=== PATIENT | male | born 1965 | race Caucasian/White ===

== ENCOUNTER 2016-08-31 18:13 | Inpatient (IN) | payer SELFPAY ==
[~2016-08-31] VITALS: Ht 182.9 cm; Wt 80.0 kg
[2016-08-31 18:22] VITALS: BP 150/83; PULSE 117; RESP 16; TEMP 98.5; O2SAT 96
--- NOTE | 2016-08-31 19:09 | PD ---
HPI Chief Complaint: Chest Pain Time Seen by Provider: 19:02 Travel History International Travel<30 days: No Contact w/Intl Traveler<30days: No Traveled to known affect area: No History of Present Illness HPI The patient is a 51 year old male who presents to the [facility] emergency department with a history of chest pain that began 4 hours ago upon awakening. The patient shows the location of the pain to be in the midepigastric area and left upper quadrant of the abdomen. The patient reports pain is sharp in character and constant. He reports it is gradually getting worse with time. He reports that the pain feels similar to when he has had pancreatitis in the past. The patient reports that he was just let out of senior care earlier today after being in senior care for the last 7 months. The patient reports that he's had nausea with the pain, vomiting 4. He denies having any diarrhea. His last bowel movement was 2 days ago. The patient denies having any associated shortness of breath. The patient reports that prior to going to senior care he was drinking 4-6 Four [place] per day. Since being let out of senior care today, he has had 2 [place]. The patient denies any recent fevers, cough, congestion, neck pain, urinary symptoms, or new neurologic symptoms. 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 Depression: Yes Cerebrovascular Accident: Yes (TIA) Hypertension: Yes Pancreatitis: Yes Past Surgical History Narrative Surgical The patient's past surgical history is significant for lumbar discectomy, right leg tumor removal just below the knee-reportedly benign. Surgical History: No Previous Surgery Social History Alcohol Use: Yes (4-6 4 locos per day) Tobacco Use: Yes (1 ppd) Substance Use: No Allergies-Medications (Allergen,Severity, Reaction): Coded Allergies: No Known Allergies (Unverified , 08/31/16) Reported Meds & Prescriptions Reported Meds & Active Scripts Active No Active Prescriptions or Reported Medications Narrative Medication None currently. Over the last 7 months in senior care he had been on Prilosec, ibuprofen of unknown dose 3 times a day, and lithium. Review of Systems Except as stated in HPI: all other systems reviewed are Neg General / Constitutional: No: Fever Eyes: No: Visual changes HENT: No: Headaches Cardiovascular: Positive: Chest Pain or Discomfort Respiratory: No: Shortness of Breath Gastrointestinal: Positive: Nausea, Vomiting, Abdominal Pain, Indigestion, No : Hematemesis, Changes in Bowel Habits, Loss of Appetite Genitourinary: No: Dysuria Musculoskeletal: No: Pain Skin: No Rash Neurologic: No: Weakness, Focal Abnormalities, Change in Mentation, Slurred Speech, Sensory Disturbance Psychiatric: No: Depression Endocrine: No: Polydipsia Hematologic/Lymphatic: No: Easy Bruising Physical Exam Narrative General: The patient is a well-developed well-nourished male in no acute distress. Head and Neck exam: Head is normocephalic atraumatic. Eyes: EOMI, pupils are equal round and reactive to light. Nose: Midline septum with pink mucous membranes Mouth: Dentition unremarkable. Moist mucus membranes. Posterior oropharynx is not erythematous. No tonsillar hypertrophy. Uvula midline. Airway patent. Neck: No palpable lymphadenopathy. No nuchal rigidity. No thyromegaly. Cardiovascular: Sinus tachycardia in the low 100 without murmurs, gallops, or rubs. No pulse deficit to the extremities on simultaneous auscultation and palpation of his radial artery. Lungs: Clear to auscultation bilaterally. No wheezes, rhonchi, or rales. Abdomen: Soft, with tenderness on palpation of the midepigastric area and left upper quadrant of the abdomen, no other tenderness on palpation of the other quadrants. No guarding, rebound, or rigidity. Normal bowel sounds are audible. No tenderness on palpation of McBurney's point. Negative [place] sign. Extremities: No clubbing, cyanosis, or edema. 2+ pulses in all 4 extremities. No calf tenderness on palpation. Back: No spinous process tenderness to palpation. No costovertebral angle tenderness to palpation. Neurologic Exam: Grossly nonfocal. Skin Exam: No rash noted. Intact skin that is warm and dry. Data Data Last Documented VS Vital Signs Date Time Temp Pulse Resp B/P Pulse Ox O2 Delivery O2 Flow Rate FiO2 08/31/16 20:39 100 18 98 Nasal Cannula 2 08/31/16 19:49 156/91 08/31/16 18:22 98.5 Orders Electrocardiogram (6/11/17 19:02) B-Type Natriuretic Peptide (08/31/16 19:02) Ckmb (Isoenzyme) Profile (08/31/16 19:02) Complete Blood Count With Diff (08/31/16 19:02) Comprehensive Metabolic Panel (08/31/16 19:02) Magnesium (Mg) (08/31/16 19:02) Prothrombin Time / Inr (Pt) (08/31/16 19:) Act Partial Throm Time (Ptt) (08/31/16 19:02) Troponin I (08/31/16 19:) Lipase (08/31/16 19:02) Chest, Single Ap (08/31/16:) Ecg Monitoring (08/31/16:) Bilateral Bp Monitoring (08/31/16:) Iv Access Insert/Monitor (08/31/16:) Oximetry (08/31/16:) Oxygen Administration (08/31/16:) Aspirin Chew (Aspirin Chew) (08/31/16 19:15) Nitroglycerin 2% Oint (Nitroglycerin 2% (08/31/16 19:15) Sodium Chloride 0.9% Flush (Ns Flush) (08/31/16 19:15) Nitroglycerin Sl (Nitrostat Sl) (08/31/16 19:15) Sodium Chlorid 0.9% 500 Ml Inj (Ns 500 M (08/31/16 19:15) Sodium Chlor 0.9% 1000 Ml Inj (Ns 1000 M (08/31/16 19:15) Ondansetron Inj (Zofran Inj) (08/31/16 19:15) Pantoprazole Inj (Protonix Inj) (08/31/16 19:15) Morphine Inj (Morphine Inj) (08/31/16 19:15) Prochlorperazine Inj (Compazine Inj) (08/31/16 20:00) CKMB (08/31/16 19:21) CKMB% (08/31/16 19:21) Admit Order (Ed Use Only) (08/31/16 21:11) Ct Abd/Pel W Iv Contrast(Rout) (09/01/16 20:48) Labs Laboratory Tests Test 08/31/16 19:21 White Blood Count 14.4 TH/MM3 Red Blood Count 5.24 MIL/MM3 Hemoglobin 15.4 GM/DL Hematocrit 44.2 % Mean Corpuscular Volume 84.3 FL Mean Corpuscular Hemoglobin 29.3 PG Mean Corpuscular Hemoglobin 34.8 % Concent Red Cell Distribution Width 13.2 % Platelet Count 231 TH/MM3 Mean Platelet Volume 9.0 FL Neutrophils (%) (Auto) 86.4 % Lymphocytes (%) (Auto) 9.4 % Monocytes (%) (Auto) 3.7 % Eosinophils (%) (Auto) 0.0 % Basophils (%) (Auto) 0.5 % Neutrophils # (Auto) 12.4 TH/MM3 Lymphocytes # (Auto) 1.3 TH/MM3 Monocytes # (Auto) 0.5 TH/MM3 Eosinophils # (Auto) 0.0 TH/MM3 Basophils # (Auto) 0.1 TH/MM3 CBC Comment DIFF FINAL Differential Comment Prothrombin Time 12.4 SEC Prothromb Time International 1.1 RATIO Ratio Activated Partial 26.8 SEC Thromboplast Time Sodium Level 137 MEQ/L Potassium Level 3.4 MEQ/L Chloride Level 96 MEQ/L Carbon Dioxide Level 25.0 MEQ/L Anion Gap 16 MEQ/L Blood Urea Nitrogen 6 MG/DL Creatinine 0.92 MG/DL Estimat Glomerular Filtration 86 ML/MIN Rate Random Glucose 151 MG/DL Calcium Level 8.7 MG/DL Magnesium Level 2.0 MG/DL Total Bilirubin 0.6 MG/DL Aspartate Amino Transf 38 U/L (AST/SGOT) Alanine Aminotransferase 50 U/L (ALT/SGPT) Alkaline Phosphatase 89 U/L Total Creatine Kinase 142 U/L Creatine Kinase MB 1.2 NG/ML Troponin I LESS THAN 0.02 NG/ML B-Type Natriuretic Peptide 6 PG/ML Total Protein 8.2 GM/DL Albumin 3.6 GM/DL Lipase 70 U/L [facility] Medical Decision Making Medical Screen Exam Complete: Yes Emergency Medical Condition: Yes Medical Record Reviewed: Yes Interpretation(s) Last Impressions Chest X-Ray 08/31/161901 Signed Impressions: Service Date/Time: Wednesday, August 31, 2016 19:37 - CONCLUSION: The lungs are clear. Stan Márquez MD Differential Diagnosis Acute pancreatitis, versus acute coronary syndrome, versus acid reflux, versus alcohol related gastritis, versus Ashley-Chowdhury tear, versus hemorrhagic esophagitis Narrative Course During the course of the patients emergency department visit, the patients history, examination, and differential diagnosis were reviewed with the patient. The patient had IV access obtained and blood work sent for analysis. The patient was on a cafeteria monitor with oximetry and blood pressure monitoring. The patient had an EKG done on arrival. The patient's EKG shows a sinus tachycardia with a heart rate of 120, left anterior fascicular block, nonspecific T-wave abnormalities, no acute ST segment elevation. QRS duration is 100 ms, QTC 398 ms. The patient was initially provided the patient will be started on 1.5 L of normal saline IV fluids, Zofran 4 mg IV, morphine 2 mg IV, nitroglycerin sublingual 1, nitroglycerin 1 inch the chest wall. The patient was given aspirin 162 mg by mouth 1. The patient was given Protonix 40 mg IV. The patients laboratory studies were reviewed and remarkable for a white count of 14.4, hemoglobin 15.4, platelets 231 with 86.4 neutrophils, CMP is remarkable for potassium 3.4, chloride 96, BUNs 6, anion gap 16, glucose 151, AST 38, CPK 142, troponin I less than 0.02, BNP is 6, lipase 70, PT 12.4, INR 1.1, PTT 26.8 Radiology studies were reviewed and remarkable for a chest x-ray that shows no acute abnormality. The patient had persistent nausea and vomiting. The patient was given Compazine 5 mg IV. The patient will be admitted to the hospital for intractable vomiting, chest pain with a rule out serial cardiac enzyme protocol. The patients results were discussed with the patient, including the plan of care. I explained that further testing and/ or monitoring is indicated based on the patients history, examination, and/ or laboratory findings. Therefore, I recommended admission for additional evaluation. The patient expressed understanding and was agreeable with this plan. The patient was admitted to the hospital in stable condition and [facility] Physician Communication Physician Communication The patient's case was discussed with Dr. Erazo who did agree to admit the patient for further evaluation and treatment at this time. Diagnosis Primary Impression: Abdominal pain Qualified Code: R10.13 - Epigastric pain Additional Impression: Chest pain Qualified Code: R07.9 - Chest pain, unspecified type Admitting Information Admitting Physician Requests: Admit Scripts No Active Prescriptions or Reported Meds Kirstie Tang MD Aug 31, 2016 19:09
[2016-08-31] MEDS ORDERED: NITROGLYCERIN 2% OINT 1 GM PACKET TOP ONE (19:15)
[2016-08-31] MEDS ORDERED: ONDANSETRON HCL 4 MG/2 ML VIAL IV ONE (19:15)
[2016-08-31] MEDS ORDERED: SODIUM CHLOR 0.9% 1000 ML INJ 1,000 ML IV ONE (19:15)
[2016-08-31] MEDS ORDERED: PANTOPRAZOLE SODIUM 40 MG VIAL IV PUSH ONE (19:15)
[2016-08-31] MEDS ORDERED: MORPHINE SULFATE 4 MG/ML INJ IV PUSH ONE (19:15)
[2016-08-31] MEDS ORDERED: ASPIRIN 81 MG CHEW TAB PO ONE (19:15)
[2016-08-31] MEDS ORDERED: SODIUM CHLORID 0.9% 500 ML INJ 500 ML IV ONE (19:15)
[2016-08-31] MEDS ORDERED: SODIUM CHLORIDE 0.9% FLUSH 10 ML FLUSH IVF PRN (19:15)
[2016-08-31 19:20] VITALS: BP 150/83; PULSE 117; RESP 18; O2SAT 95
[2016-08-31] MEDS: NITROGLYCERIN 0.4 MG SL 25 TABS/BTL SL SCH ×2 (19:31→19:48)
[2016-08-31 19:48] VITALS: BP 133/80
[2016-08-31 19:49] VITALS: BP 156/91
--- NOTE | 2016-08-31 19:52 | RADRPT ---
EXAM DATE/TIME: 08/31/2016 19:37 [facility] COMPARISON: No previous studies available for comparison. INDICATIONS : Chest pain. MEDICAL HISTORY : None. SURGICAL HISTORY : None. ENCOUNTER: Initial ACUITY: 1 day PAIN SCORE: 7/10 LOCATION: Bilateral chest FINDINGS: A single view of the chest demonstrates the lungs to be symmetrically aerated without evidence of mas s, infiltrate or effusion. The cardiomediastinal contours are unremarkable. Osseous structures are intact. CONCLUSION: The lungs are clear. Stan Márquez MD on August 31, 2016 at 19:50 Board Certified Radiologist. This report was verified electronically.
[2016-08-31] MEDS ORDERED: PROCHLORPERAZINE INJ 10 MG/2 ML VIAL IV PUSH ONE (20:00)
[2016-08-31 20:04] LABS: AUTOMATED NEUTROPHIL # 12.4 TH/MM3 (1.8-7.7); BASOPHIL # 0.1 TH/MM3 (0-0.2); BASOPHIL % 0.5 % (0.0-2.0); HEMATOCRIT 44.2 % (39.0-51.0); HEMO FLAGS DIFF FINAL; LYMPH % 9.4 % (9.0-44.0); LYMPHOCYTE # 1.3 TH/MM3 (1.0-4.8); MEAN CELL VOLUME 84.3 FL (80.0-100.0); MEAN CORPUSCULAR HEMOGLOBIN 29.3 PG (27.0-34.0); MEAN CORPUSCULAR HGB CONC 34.8 % (32.0-36.0); MONO % 3.7 % (0.0-8.0); NEUT % 86.4 % (16.0-70.0); PLATELET COUNT 231 TH/MM3 (150-450); RED BLOOD COUNT 5.24 MIL/MM3 (4.50-5.90); RED CELL DISTRIBUTION WIDTH 13.2 % (11.6-17.2); WHITE BLOOD COUNT 14.4 TH/MM3 (4.0-11.0)
[2016-08-31 20:13] LABS: APTT (PATIENT) 26.8 SEC (24.3-30.1); INTERNATIONAL NORMALIZED RATIO 1.1 RATIO; PROTHROMBIN TIME - PATIENT 12.4 SEC (9.8-11.6)
[2016-08-31 20:32] LABS: ALT (GPT) 50 U/L (12-78)
[2016-08-31 20:38] LABS: ALKALINE PHOSPHATASE 89 U/L (45-117); ANION GAP 16 MEQ/L (5-15); AST (GOT) 38 U/L (15-37); BLOOD UREA NITROGEN 6 MG/DL (7-18); CHLORIDE 96 MEQ/L (98-107); CREATINE KINASE 142 U/L (39-308); GLOMERULAR FILTRATION RATE 86 ML/MIN (>89); POTASSIUM 3.4 MEQ/L (3.5-5.1); SODIUM (NA) 137 MEQ/L (136-145); TOTAL BILIRUBIN ADULT 0.6 MG/DL (0.2-1.0)
[2016-08-31 20:39] VITALS: PULSE 100; RESP 18; O2SAT 98
[2016-08-31 20:50] LABS: CKMB 1.2 NG/ML (0.5-3.6)
[2016-08-31] MEDS ORDERED: PROCHLORPERAZINE 25 MG SUPP RECTAL PRN (21:30)
[2016-08-31] MEDS ORDERED: SODIUM CHLORIDE 0.9% FLUSH 10 ML FLUSH IV FLUSH PRN ×2 (21:30)
[2016-08-31] MEDS ORDERED: SENNOSIDES 8.6 MG TAB PO PRN (21:30)
[2016-08-31] MEDS ORDERED: MAGNESIUM HYDROXIDE SUSP 30 ML CUP PO PRN (21:30)
[2016-08-31] MEDS ORDERED: METOCLOPRAMIDE HCL 10 MG/2 ML VIAL IV PUSH PRN (21:30)
[2016-08-31] MEDS ORDERED: BISACODYL 10 MG SUPP RECTAL PRN (21:30)
[2016-08-31] MEDS ORDERED: ONDANSETRON HCL 4 MG/2 ML VIAL IVP PRN (21:30)
[2016-08-31] MEDS ORDERED: ACETAMINOPHEN 325 MG TAB PO PRN (21:30)
[2016-08-31] MEDS ORDERED: LACTULOSE SYRUP 20 GM/30 ML CUP PO PRN (21:30)
--- NOTE | 2016-08-31 21:50 | HHI.HP ---
HPI Service [facility] Primary Care Physician No Primary Care Physician Admission Diagnosis cp ro mi, intractable vomiting Diagnoses: Chief Complaint: Chest pain, intractable vomiting Travel History International Travel<30 Days: No Contact w/Intl Traveler <30 Da: No Traveled to Known Affected Are: No Sepsis Criteria SIRS Criteria (2 or more): Heart rate over 90, WBC > 12890, < 4000 or > 10% bands Sepsis Criteria (SIRS+source): Infect source susp/known History of Present Illness Written by Alessandra Godoy, acting as scribe for Dr. Erazo on 08/31/16 at 21 :37. This note was transcribed by [email or web address] HUSAIN. I, Dr. Tiff Erazo personally performed the history, physical exam, and medical decision making; and confirmed the accuracy of the information in the transcribed note. Authenticated by Dr. Tiff Erazo on 08/31/16 at 21:37. The patient is a 51 year old male with a past medical history which includes HTN , cerebrovascular accident with mild residual weakness of the right side, leg tumor removed, chronic low back pain status post low back surgery with a right foot drop reportedly related to the surgery, pancreatitis, acid reflux, and depression. Patient presents to the [facility] emergency department for with complaints of chest pain. Patient report he was awoke from sleep with chest pain. When patient asked to point to the pain he indicates midepigastric area. Describes pain as severe contant sharp stabbing sensation. Patient reports pain is better after nitroglycerine given on ER. Pain is associated with brown colored vomiting. Patient reports, "I ain't got nothing left in my gut." Endorses Chills and cough productive of white colored phlegm as well. Patient reports he drank two 4 [place] today. Patient has not been drinking for the last 7 months as he was in [place]. Patient has been taking ibuprofen 3-4 times a day for chronic back pain while he was incarcerated. Patient denies diarrhea constipation or shortness of breath. Review of Systems Except as stated in HPI: all other systems reviewed are Neg Past Family Social History Past Medical History HTN, cerebrovascular accident with mild residual weakness of the right side, leg tumor removed, chronic low back pain status post low back surgery with a right foot drop reportedly related to the surgery, pancreatitis, acid reflux, and depression. Past Surgical History lumbar discectomy, right leg tumor removal just below the knee-reportedly benign , repair of bilateral forearms after stabbings Reported Medications Ibuprofen unknown dose by mouth 3 times a day Prilosec unknown dose by mouth daily Allergies: Coded Allergies: No Known Allergies (Unverified , 08/31/16) Active Ordered Medications Current Medications Medications (Trade) Dose Ordered Sig/Liborio Route Start Time Stop Time Status Last Admin Sodium Chloride 2 ml 2 ml UNSCH PRN IVF 08/31/16 19:15 (NS 1000 ml Inj) 1,000 ml @ 100 mls/hr Q10H IV 08/31/16 21:28 UNV (NS Flush) 2 ml UNSCH PRN IV FLUSH 08/31/16 21:30 UNV (NS Flush) 2 ml BID IV FLUSH 09/01/16 09:00 UNV (Tylenol) 650 mg Q4H PRN PO 08/31/16 21:30 UNV (Zofran Inj) 4 mg Q6H PRN IVP 08/31/16 21:30 UNV (Reglan Inj) 5 mg Q6H PRN IV PUSH 08/31/16 21:30 UNV (Compazine Supp) 25 mg Q12H PRN MI 08/31/16 21:30 UNV (Lovenox Inj) 40 mg Q24H SQ 08/31/16 21:30 UNV (Lexii-Colace) 1 tab BID PO 09/01/16 09:00 UNV (Milk Of Magnesia Liq) 30 ml Q12H PRN PO 08/31/16 21:30 UNV (Senokot) 17.2 mg Q12H PRN PO 08/31/16 21:30 UNV (Dulcolax Supp) 10 mg DAILY PRN RECTAL 08/31/16 21:30 UNV (Lactulose Liq) 30 ml DAILY PRN PO 08/31/16 21:30 UNV (NS Flush) 2 ml UNSCH PRN IV FLUSH 08/31/16 21:30 UNV (NS Flush) 2 ml BID IV FLUSH 09/01/16 09:00 UNV Family History HTN runs in his family Social History Recently released from long-term- had been in [place] x 7 months Alcohol Use: Yes (4-6 4 locos per day) Tobacco Use: Yes (1 ppd)- reports he quite smoking today Substance Use: denies Physical Exam Vital Signs Vital Signs Date Time Temp Pulse Resp B/P Pulse Ox O2 Delivery O2 Flow Rate FiO2 08/31/16 20:39 100 18 98 Nasal Cannula 2 08/31/16 19:49 156/91 08/31/16 19:48 133/80 08/31/16 19:20 117 18 150/83 95 Room Air 08/31/16 19:20 95 Room Air 08/31/16 19:20 95 Room Air 08/31/16 18:22 98.5 117 16 150/83 96 Physical Exam GENERAL: This is a well-nourished, well-developed patient, flushed colored checks SKIN: No rashes, ecchymoses or lesions. Cool and dry. Flushed colored checks HEAD: Atraumatic. Normocephalic. No temporal or scalp tenderness. EYES: Pupils equal round and reactive. Extraocular motions intact. No scleral icterus. No injection or drainage. CARDIOVASCULAR: Tachycardia without murmurs, gallops, or rubs. RESPIRATORY: Clear to auscultation. Breath sounds equal bilaterally. No wheezes , rales, or rhonchi. GASTROINTESTINAL: Abdomen soft, mild tenderness LUQ, nondistended. MUSCULOSKELETAL: Extremities without clubbing, cyanosis, or edema. No joint tenderness, effusion, or edema noted. No calf tenderness. Negative Homans sign bilaterally. NEUROLOGICAL: Awake and alert. No focal deficits. Motor and sensory grossly within normal limits. Five out of 5 muscle strength in all muscle groups. Normal speech. Laboratory Laboratory Tests Test 08/31/16 19:21 White Blood Count 14.4 Red Blood Count 5.24 Hemoglobin 15.4 Hematocrit 44.2 Mean Corpuscular Volume 84.3 Mean Corpuscular Hemoglobin 29.3 Mean Corpuscular Hemoglobin 34.8 Concent Red Cell Distribution Width 13.2 Platelet Count 231 Mean Platelet Volume 9.0 Neutrophils (%) (Auto) 86.4 Lymphocytes (%) (Auto) 9.4 Monocytes (%) (Auto) 3.7 Eosinophils (%) (Auto) 0.0 Basophils (%) (Auto) 0.5 Neutrophils # (Auto) 12.4 Lymphocytes # (Auto) 1.3 Monocytes # (Auto) 0.5 Eosinophils # (Auto) 0.0 Basophils # (Auto) 0.1 CBC Comment DIFF FINAL Differential Comment Prothrombin Time 12.4 Prothromb Time International 1.1 Ratio Activated Partial 26.8 Thromboplast Time Sodium Level 137 Potassium Level 3.4 Chloride Level 96 Carbon Dioxide Level 25.0 Anion Gap 16 Blood Urea Nitrogen 6 Creatinine 0.92 Estimat Glomerular Filtration 86 Rate Random Glucose 151 Calcium Level 8.7 Magnesium Level 2.0 Total Bilirubin 0.6 Aspartate Amino Transf 38 (AST/SGOT) Alanine Aminotransferase 50 (ALT/SGPT) Alkaline Phosphatase 89 Total Creatine Kinase 142 Creatine Kinase MB 1.2 Troponin I LESS THAN 0.02 B-Type Natriuretic Peptide 6 Total Protein 8.2 Albumin 3.6 Lipase 70 Result Diagram: 08/31/16192008/31/161920 Imaging Last Impressions Chest X-Ray 08/31/161901 Signed Impressions: Service Date/Time: Wednesday, August 31, 2016 19:37 - CONCLUSION: The lungs are clear. Stan Márquez MD Septic Shock Reassessment Heart: Other (tachycardic) Lungs: Clear Skin: Warm, Dry Peripheral Pulses: Bounding Right Radial Bounding Left Radial Bounding Right Dorsalis Pedis Bounding Left Dorsalis Pedis Capillary Refill: Brisk Assessment and Plan Problem List: (1) Sepsis ICD Code: A41.9 Status: Acute (2) Intractable vomiting ICD Code: R11.10 Status: Acute (3) GI bleed ICD Code: K92.2 Status: Acute (4) Chest pain ICD Code: R07.9 Status: Acute Assessment and Plan The patient is a 51 year old male with a past medical history which includes cerebrovascular accident with mild residual weakness of the right side, leg tumor removed, chronic low back pain status post low back surgery with a right foot drop reportedly related to the surgery, pancreatitis, acid reflux, and depression. Patient presents to the [facility] emergency department with midepigastric area pain and left upper quadrant of the abdomen. The patient reports pain is sharp in character and constant. He reports it is gradually getting worse with time. He reports that the pain feels similar to when he is having pancreatitis in the past. The patient reports that he was just let out of long-term earlier today after being in long-term for the last 7 months. The patient reports that he's had nausea with the pain, vomiting 4. Witnessed to have coffee-ground emesis in the emergency department Sepsis criteria (tachycardic, white blood cell count 14.4 likely GI source patient with intractable vomiting) 1.5 L bolus in the emergency department IV fluids Start ciprofloxacin and Flagyl IV Recheck CBC in a.m. Chest x-ray revealed by me no acute disease process UA ordered and pending Stool studies ordered GI bleed With intractable vomiting GI consult Protonix 40 mg IV every 12 hours Serial H&H Hemoccult-negative emergency department IV fluid Nothing by mouth Supportive care, Zofran and Compazine as stated Chest pain appears to be epigastric in nature rule out acute coronary syndrome Serial troponin, serial EKG Continuous cardiac telemetry Initial EKG reviewed by me reveals sinus tachycardia no acute ST changes, initial troponin less than 0.02 Hypokalemia potassium 3.4 replaced Recheck in a.m. EtOH abuse Patient counseled encouraged to abstain DVT prophylaxis with SCDs will avoid chemical DVT prophylaxis in light of upper GI bleed Discussed with the ER provider, nursing patient Problem Qualifiers (1) Chest pain: Qualified Code: R07.9 - Chest pain, unspecified type Alessandra Godoy Aug 31, 2016 21:50 Tiff Erazo MD Sep 01, 2016 04:41
[2016-08-31] MEDS: SODIUM CHLOR 0.9% 1000 ML INJ 1,000 ML IV SCH (21:54)
[2016-08-31] MEDS ORDERED: ENOXAPARIN SODIUM 40 MG/0.4 ML SYRINGE SQ SCH (22:00)
[2016-08-31 22:10] VITALS: O2SAT 98
[2016-08-31] MEDS: metroNIDAZOLE 500 MG INJ 100 ML IV SCH (22:21)
[2016-08-31 22:31] LABS: CREATINE KINASE 137 U/L (39-308)
[2016-08-31] MEDS: MORPHINE SULFATE 4 MG/ML INJ IV PUSH PRN (23:07)
[2016-08-31] MEDS: CIPROFLOXACIN 400 MG PREMIX 200 ML IV SCH (23:09)
[2016-09-01] VITALS (9 sets, daily range): BP systolic 90–172; BP diastolic 50–111; PULSE 71–99; RESP 17–20; TEMP 95.8–97.8; O2SAT 92–98
[2016-09-01] MEDS ORDERED: POTASSIUM CHLOR 20 MEQ PREMIX 100 ML IV ONE
[2016-09-01 00:12] LABS: HEMATOCRIT 39.3 % (39.0-51.0); REVIEW FLAG FINAL
[2016-09-01] MEDS: THIAMINE INJ 100 MG in SODIUM CHLORIDE 0.9% INJ 100 ML IV SCH (00:28)
[2016-09-01 04:06] LABS: AUTOMATED NEUTROPHIL # 8.6 TH/MM3 (1.8-7.7); BASOPHIL % 0.3 % (0.0-2.0); EOSINOPHIL # 0.1 TH/MM3 (0-0.4); EOSINOPHIL % 0.9 % (0.0-4.0); HEMATOCRIT 36.6 % (39.0-51.0); HEMO FLAGS DIFF FINAL; LYMPH % 19.7 % (9.0-44.0); LYMPHOCYTE # 2.4 TH/MM3 (1.0-4.8); MEAN CELL VOLUME 83.8 FL (80.0-100.0); MEAN CORPUSCULAR HEMOGLOBIN 29.2 PG (27.0-34.0); MEAN CORPUSCULAR HGB CONC 34.8 % (32.0-36.0); NEUT % 70.1 % (16.0-70.0); PLATELET COUNT 162 TH/MM3 (150-450); RED BLOOD COUNT 4.37 MIL/MM3 (4.50-5.90); RED CELL DISTRIBUTION WIDTH 13.2 % (11.6-17.2); WHITE BLOOD COUNT 12.3 TH/MM3 (4.0-11.0)
[2016-09-01 05:00] LABS: ALKALINE PHOSPHATASE 71 U/L (45-117); ALT (GPT) 40 U/L (12-78); ANION GAP 8 MEQ/L (5-15); AST (GOT) 26 U/L (15-37); BICARBONATE 31.4 MEQ/L (21.0-32.0); BLOOD UREA NITROGEN 6 MG/DL (7-18); CHLORIDE 102 MEQ/L (98-107); CREATINE KINASE 107 U/L (39-308); GLOMERULAR FILTRATION RATE 108 ML/MIN (>89); POTASSIUM 3.8 MEQ/L (3.5-5.1); SODIUM (NA) 141 MEQ/L (136-145); TOTAL BILIRUBIN ADULT 0.6 MG/DL (0.2-1.0)
[2016-09-01] MEDS: metroNIDAZOLE 500 MG INJ 100 ML IV SCH ×3 (05:23→21:32)
[2016-09-01] MEDS: MORPHINE SULFATE 4 MG/ML INJ IV PUSH PRN ×4 (05:39→21:49)
[2016-09-01] MEDS: SODIUM CHLOR 0.9% 1000 ML INJ 1,000 ML IV SCH (07:28)
[2016-09-01] MEDS ORDERED: SODIUM CHLORIDE 0.9% FLUSH 10 ML FLUSH IV FLUSH SCH (09:00)
[2016-09-01] MEDS: PANTOPRAZOLE SODIUM 40 MG VIAL IV SCH ×2 (09:10→21:00)
[2016-09-01] MEDS ORDERED: IOHEXOL 350 MG/ML 10 ML VIAL (for RAD DIAG) IV ONE (09:31)
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
--- NOTE | 2016-09-01 09:51 | RADRPT ---
EXAM DATE/TIME: 09/01/2016 09:22 [place] COMPARISON: No previous studies available for comparison. INDICATIONS : Diffuse abdominal pain. IV CONTRAST: 96 cc Omnipaque 350 (iohexol) IV ORAL CONTRAST: No oral contrast ingested. RADIATION DOSE: 7.49 CTDIvol (mGy) MEDICAL HISTORY : Pancreatitis. Hypertension. TIA. SURGICAL HISTORY : None. ENCOUNTER: Initial ACUITY: 1 day PAIN SCALE: 6/10 LOCATION: Bilateral abdomen TECHNIQUE: Volumetric scanning of the abdomen and pelvis was performed. Using automated exposure control and ad justment of the mA and/or kV according to patient size, radiation dose was kept as low as reasonably achievable to obtain optimal diagnostic quality images. FINDINGS: Imaging through the lung bases demonstrates minimal bilateral effusions with a small amount of atelec tasis in the left lower lobe. Note is made of a large hiatal hernia. The appearance of the liver, spleen, pancreas, adrenal glands and kidneys is within normal limits. In cidental note is made of a small splenule. The visualized loops of small and large bowel in the upper abdomen are unremarkable. There is no significant retroperitoneal lymphadenopathy. The loops of small large bowel within the pelvis are within normal limits. No iliac or inguinal adeno melonie is seen. No free fluid is seen within the pelvis. There are degenerative changes within the lumbar spine. CONCLUSION: 1. Small bilateral effusions with minimal atelectasis at the left lung base. 2. Hiatal hernia. 3. No definite abnormality to explain the patient's abdominal pain is identified. Eitna Perry MD on September 01, 2016 at 9:41 Board Certified Radiologist. This report was verified electronically.
[2016-09-01] MEDS: CIPROFLOXACIN 400 MG PREMIX 200 ML IV SCH ×2 (11:01→22:54)
--- NOTE | 2016-09-01 11:15 | EKG ---
Date Performed: 08/31/2016 Time Performed: 18:27:44 PTAGE: 51 years EKG: SINUS TACHYCARDIA PATTERN CONSISTENT WITH PULMONARY DISEASE LEFT ANTERIOR FASCICULAR BLOCK ABNORMAL ECG NO PREVIOUS TRACING DOCTOR: Aime Tang Interpretating Date/Time 09/01/2016 11:14:04
--- NOTE | 2016-09-01 11:37 | EKG ---
Date Performed: 08/31/2016 Time Performed: 21:50:26 PTAGE: 51 years EKG: SINUS TACHYCARDIA MARKED LEFT AXIS DEVIATION POSSIBLE LATERAL MYOCARDIAL INFARCTION ABNORMA L ECG Possible left anterior fascicular block. No change from the prior tracing. PREVIOUS TRACING : 08/31/2016 19.32 DOCTOR: Aime Tang Interpretating Date/Time 09/01/2016 11:36:47
--- NOTE | 2016-09-01 11:45 | EKG ---
Date Performed: 08/31/2016 Time Performed: 19:32:31 PTAGE: 51 years EKG: SINUS TACHYCARDIA PATTERN CONSISTENT WITH PULMONARY DISEASE LEFT ANTERIOR FASCICULAR BLOCK NONSPECIFIC T-WAVE ABNORMALITY Since previous tracing, no significant change noted ABNORMAL ECG PREVIOUS TRACING : 08/31/2016 18.24.44 DOCTOR: Aime Tang Interpretating Date/Time 09/01/2016 11:44:40
--- NOTE | 2016-09-01 14:28 | HHI.PR ---
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 stable in his bedroom, no nausea, vomit or diarrhea. Objective Vital Signs Date Time Temp Pulse Resp B/P Pulse Ox O2 Delivery O2 Flow Rate FiO2 09/01/16 12:26 97.3 89 17 90/50 94 09/01/16 10:34 92 Nasal Cannula 1.00 09/01/16 07:35 97.7 98 17 172/111 92 09/01/16 04:00 97.8 99 20 103/68 93 09/01/16 00:00 95.8 93 20 98/59 98 08/31/16 22:10 98 Nasal Cannula 2.00 08/31/16 20:39 100 18 98 Nasal Cannula 2 08/31/16 19:49 156/91 08/31/16 19:48 133/80 08/31/16 19:20 117 18 150/83 95 Room Air 08/31/16 19:20 95 Room Air 08/31/16 19:20 95 Room Air 08/31/16 18:22 98.5 117 16 150/83 96 I/O 08/31/16 08/31/16 08/31/16 09/01/16 09/01/16 09/01/16 07:00 15:00 23:00 07:00 15:00 23:00 Intake Total 842 ml 360 ml Output Total 200 ml 450 ml Balance 642 ml -90 ml Intake Oral 360 ml IV Total 842 ml Output Urine Total 200 ml 450 ml # Voids 1 # Bowel Movements 0 Result Diagram: 09/01/164 09/01/16343 Imaging Last Impressions Abdomen/Pelvis CT 09/01/162047 Signed Impressions: Service Date/Time: Thursday, September 01, 2016 09:22 - CONCLUSION: 1. Small bilateral effusions with minimal atelectasis at the left lung base. 2. Hiatal hernia. 3. No definite abnormality to explain the patient's abdominal pain is identified. Eitan Perry MD Chest X-Ray 08/31/16 190 Signed Impressions: Service Date/Time: Wednesday, August 31, 2016 19:37 - CONCLUSION: The lungs are clear. Stan Márquez MD Procedures No procedures performed. Other Results Laboratory Tests Test 08/31/16 09/01/16 19:21 03:44 Prothrombin Time 12.4 SEC Prothromb Time International 1.1 RATIO Ratio Activated Partial 26.8 SEC Thromboplast Time Magnesium Level 2.0 MG/DL Creatine Kinase MB 1.2 NG/ML B-Type Natriuretic Peptide 6 PG/ML Lipase 70 U/L White Blood Count 12.3 TH/MM3 Red Blood Count 4.37 MIL/MM3 Hemoglobin 12.8 GM/DL Hematocrit 36.6 % Mean Corpuscular Volume 83.8 FL Mean Corpuscular Hemoglobin 29.2 PG Mean Corpuscular Hemoglobin 34.8 % Concent Red Cell Distribution Width 13.2 % Platelet Count 162 TH/MM3 Mean Platelet Volume 7.9 FL Neutrophils (%) (Auto) 70.1 % Lymphocytes (%) (Auto) 19.7 % Monocytes (%) (Auto) 9.0 % Eosinophils (%) (Auto) 0.9 % Basophils (%) (Auto) 0.3 % Neutrophils # (Auto) 8.6 TH/MM3 Lymphocytes # (Auto) 2.4 TH/MM3 Monocytes # (Auto) 1.1 TH/MM3 Eosinophils # (Auto) 0.1 TH/MM3 Basophils # (Auto) 0.0 TH/MM3 CBC Comment DIFF FINAL Differential Comment Sodium Level 141 MEQ/L Potassium Level 3.8 MEQ/L Chloride Level 102 MEQ/L Carbon Dioxide Level 31.4 MEQ/L Anion Gap 8 MEQ/L Blood Urea Nitrogen 6 MG/DL Creatinine 0.76 MG/DL Estimat Glomerular Filtration 108 ML/MIN Rate Random Glucose 92 MG/DL Calcium Level 8.0 MG/DL Total Bilirubin 0.6 MG/DL Aspartate Amino Transf 26 U/L (AST/SGOT) Alanine Aminotransferase 40 U/L (ALT/SGPT) Alkaline Phosphatase 71 U/L Total Creatine Kinase 107 U/L Troponin I LESS THAN 0.02 NG/ML Total Protein 6.6 GM/DL Albumin 2.9 GM/DL Objective Remarks GENERAL: This is a well-nourished, well-developed patient, flushed colored checks SKIN: No rashes, ecchymoses or lesions. Cool and dry. Flushed colored checks HEAD: Atraumatic. Normocephalic. No temporal or scalp tenderness. EYES: Pupils equal round and reactive. Extraocular motions intact. No scleral icterus. No injection or drainage. CARDIOVASCULAR: Tachycardia without murmurs, gallops, or rubs. RESPIRATORY: Clear to auscultation. Breath sounds equal bilaterally. No wheezes , rales, or rhonchi. GASTROINTESTINAL: Abdomen soft, mild tenderness LUQ, nondistended. MUSCULOSKELETAL: Extremities without clubbing, cyanosis, or edema. No joint tenderness, effusion, or edema noted. No calf tenderness. Negative Homans sign bilaterally. NEUROLOGICAL: Awake and alert. No focal deficits. Motor and sensory grossly within normal limits. Five out of 5 muscle strength in all muscle groups. Normal speech. Medications and IVs Current Medications Medications (Trade) Dose Ordered Sig/Liborio Route Start Time Stop Time Status Last Admin (NS 1000 ml Inj) 1,000 ml @ 100 mls/hr Q10H IV 08/31/16 21:28 08/31/16 21:54 (NS Flush) 2 ml BID IV FLUSH 09/01/16 09:00 (Tylenol) 650 mg Q4H PRN PO 08/31/16 21:30 (Zofran Inj) 4 mg Q6H PRN IVP 08/31/16 21:30 (Reglan Inj) 5 mg Q6H PRN IV PUSH 08/31/16 21:30 (Compazine Supp) 25 mg Q12H PRN RECTAL 08/31/16 21:30 (Lexii-Colace) 1 tab BID PO 09/01/16 09:00 (Milk Of Magnesia Liq) 30 ml Q12H PRN PO 08/31/16 21:30 (Senokot) 17.2 mg Q12H PRN PO 08/31/16 21:30 (Dulcolax Supp) 10 mg DAILY PRN RECTAL 08/31/16 21:30 (Lactulose Liq) 30 ml DAILY PRN PO 08/31/16 21:30 (NS Flush) 2 ml UNSCH PRN IV FLUSH 08/31/16 21:30 Pantoprazole Sodium 40 mg 40 mg BID IV 09/01/16 09:00 09/01/16 09:10 Thiamine HCl 100 mg/Sodium Chloride 101 ml @ 100 mls/hr Q24H IV 08/31/16 23:00 09/01/16 00:28 Ciprofloxacin/ Dextrose 200 ml @ 200 mls/hr Q12H IV 08/31/16 23:00 09/01/16 11:01 (Flagyl 500 Mg Inj) 100 ml @ 100 mls/hr Q8H IV 08/31/16 22:00 09/01/16 05:23 (Morphine Inj) 2 mg Q4HR PRN IV PUSH 08/31/16 22:45 09/01/16 10:56 A/P Assessment and Plan 1. Sepsis found with Tachycardia, Leukocytosis 14.4, due to suspected Abdominal source started on Cipro and Flagyl and following 2. GI bleed PPIs, H and H, Hemoccult negative, IV fluids, Seen by GI specialist for BI bleed, Coffee ground Emesis, positive Story for NSAIDs and ETOH, Hemoglobin trending down plan for EGD tomorrow. 3. Intractable nausea and vomit, Improving. 4. Atypical chest pain continue Cardiac monitoring, cardiac enzymes, 5. Electrolyte derangement replaced 6. EtOH abuse DVT prophylaxis with SCDs will avoid chemical DVT prophylaxis in light of upper GI bleed Discharge Planning Once cleared by Specialist. Juan Multani MD Sep 01, 2016 14:28
[2016-09-01] MEDS: SODIUM CHLORIDE 0.9% FLUSH 10 ML FLUSH IV FLUSH SCH (21:00)
[2016-09-01] MEDS: DOCUSATE SODIUM 50 MG/SENNA 8.6 MG TAB PO SCH ×2 (21:00→21:31)
[2016-09-02] VITALS (7 sets, daily range): BP systolic 90–151; BP diastolic 57–99; PULSE 78–87; RESP 16–20; TEMP 96.4–98.7; O2SAT 91–98
[2016-09-02] MEDS: THIAMINE INJ 100 MG in SODIUM CHLORIDE 0.9% INJ 100 ML IV SCH (00:19)
[2016-09-02] MEDS: MORPHINE SULFATE 4 MG/ML INJ IV PUSH PRN ×4 (04:57→20:57)
[2016-09-02] MEDS: metroNIDAZOLE 500 MG INJ 100 ML IV SCH ×2 (04:57→17:51)
[2016-09-02 07:10] LABS: AUTOMATED NEUTROPHIL # 6.2 TH/MM3 (1.8-7.7); BASOPHIL # 0.1 TH/MM3 (0-0.2); BASOPHIL % 0.9 % (0.0-2.0); EOSINOPHIL # 0.2 TH/MM3 (0-0.4); HEMATOCRIT 33.7 % (39.0-51.0); HEMO FLAGS DIFF FINAL; LYMPH % 18.5 % (9.0-44.0); LYMPHOCYTE # 1.6 TH/MM3 (1.0-4.8); MEAN CELL VOLUME 85.5 FL (80.0-100.0); MEAN CORPUSCULAR HEMOGLOBIN 28.8 PG (27.0-34.0); MEAN CORPUSCULAR HGB CONC 33.7 % (32.0-36.0); MONO % 8.3 % (0.0-8.0); NEUT % 70.3 % (16.0-70.0); PLATELET COUNT 115 TH/MM3 (150-450); RED BLOOD COUNT 3.94 MIL/MM3 (4.50-5.90); RED CELL DISTRIBUTION WIDTH 12.9 % (11.6-17.2); WHITE BLOOD COUNT 8.8 TH/MM3 (4.0-11.0)
[2016-09-02 07:33] LABS: ANION GAP 8 MEQ/L (5-15); AST (GOT) 15 U/L (15-37); BICARBONATE 25.8 MEQ/L (21.0-32.0); BLOOD UREA NITROGEN 8 MG/DL (7-18); CHLORIDE 106 MEQ/L (98-107); GLOMERULAR FILTRATION RATE 120 ML/MIN (>89); POTASSIUM 3.5 MEQ/L (3.5-5.1); SODIUM (NA) 140 MEQ/L (136-145)
[2016-09-02 07:34] LABS: ALT (GPT) 24 U/L (12-78)
[2016-09-02 07:36] LABS: ALKALINE PHOSPHATASE 58 U/L (45-117); TOTAL BILIRUBIN ADULT 0.6 MG/DL (0.2-1.0)
[2016-09-02] MEDS: SODIUM CHLORIDE 0.9% FLUSH 10 ML FLUSH IV FLUSH SCH ×2 (09:00→21:00)
--- NOTE | 2016-09-02 09:38 | GIPROC ---
[facility] [address] [facility]. [facility], [address] EGD PROCEDURE REPORT EXAM DATE: 09/02/2016 PATIENT NAME: Shahbaz Love MR #: [id number] BIRTHDATE: 1965 ATTENDING: Tavon Bassett MD ORDER #: [id number] SENIOR SOURCING MANAGER: Tereso Patel and Pia Jacome STATUS: inpatient INDICATIONS: The patient is a 51 yr old male here for an EGD due to epigastric abdominal pain PROCEDURE PERFORMED: EGD w/ biopsy MEDICATIONS: None and Per Anesthesia. TOPICAL ANESTHETIC: CONSENT: The patient understands the risks and benefits of the procedure and understands that these risks include, but are not limited to: sedation, allergic reaction, infection, perforation and/or bleeding. Alternative means of evaluation and treatment include, among others: physical exam, x-rays, and/or surgical intervention. The patient elects to proceed with this endoscopic procedure. medical equipment was checked for proper function. Hand hygiene and appropriate measures for infection prevention was taken. After the risks, benefits and alternatives of the procedure were thoroughly explained, Informed consent was verified, confirmed and timeout was successfully executed by the treatment team. The patient was anesthetized with topical anesthesia and the [employer] [id number] endoscope was introduced through the mouth and advanced to the second portion of the duodenum. Retroflexed views revealed a hiatal hernia The gastroscope was then slowly withdrawn and removed. ESOPHAGUS: There was LA Class D esophagitis noted. A biopsy was performed using cold forceps. Sample sent for histology. STOMACH: There was erythematous moderate gastritis in the gastric antrum. DUODENUM: The duodenal mucosa appeared normal. ADVERSE EVENTS: There were no complications. IMPRESSIONS: 1. There was LA Class D esophagitis noted; biopsy was performed 2. There was erythematous gastritis in the gastric antrum 3. Normal duodenal mucosa 4. Retroflexed views revealed a hiatal hernia RECOMMENDATIONS: 1. Await biopsy results. Biopsy results will not be ready for 7-10 days. If you don't hear from us in two weeks, call our office for biopsy results. 2. Anti-reflux regimen 3. Continue PPI 4. Avoid NSAIDS 5. Carafate 1 gm po tid ac 6. Follow-up: GI clinic 2 week(s) 7. Gi fu inpatient as needed. PATIENT CONDITION: stable DISPOSITION: Inpatient REPEAT EXAM: Return 6 months EGD pending biopsy results Tavon Bassett MD eSigned: Tavon Bassett MD 09/02/2016 9:38 AM cc: PATIENT NAME: Shahbaz Love MR#: [id number]
[2016-09-02] MEDS ORDERED: PROPOFOL 200 MG/20 ML AMP IV ONE (09:44)
[2016-09-02] MEDS ORDERED: DO NOT ADM ANY ANTICOAGULANT DRUGS PRN (10:30)
[2016-09-02] MEDS: DOCUSATE SODIUM 50 MG/SENNA 8.6 MG TAB PO SCH ×3 (10:42→21:03)
[2016-09-02] MEDS: PANTOPRAZOLE SODIUM 40 MG VIAL IV SCH ×2 (10:43→21:03)
[2016-09-02] MEDS: SUCRALFATE 1 GM/10 ML CUP PO SCH ×3 (10:50→21:03)
[2016-09-02] MEDS: CIPROFLOXACIN 400 MG PREMIX 200 ML IV SCH (12:31)
--- NOTE | 2016-09-02 13:26 | HHI.PR ---
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 stable in his bedroom, no nausea, vomit or diarrhea. 09/02: Seen in his bedroom, discussed with Patient and Nurse, status post EGD, has Esophagitis, Gastritis, hiatal hernia patient without nausea, vomit or diarrhea. to continue PPIs, avoid NSAIDs, Carafate, Objective Vital Signs Date Time Temp Pulse Resp B/P Pulse Ox O2 Delivery O2 Flow Rate FiO2 09/02/16 12:46 98.5 87 18 151/99 98 09/02/16 09:52 82 18 99/65 95 09/02/16 09:42 74 18 99/74 95 09/02/16 09:32 98.3 83 18 103/72 95 09/02/16 06:41 96.4 78 18 90/59 92 09/02/16 00:00 98.7 83 20 91/57 91 09/01/16 22:00 94 Nasal Cannula 1.00 09/01/16 20:00 94 09/01/16 20:00 97.6 92 20 106/64 94 09/01/16 18:53 95 09/01/16 16:37 97.0 71 17 100/65 96 I/O 09/01/16 09/01/16 09/01/16 09/02/16 09/02/16 09/02/16 07:00 15:00 23:00 07:00 15:00 23:00 Intake Total 842 ml 360 ml 800 ml 100 ml Output Total 200 ml 450 ml 500 ml 200 ml Balance 642 ml -90 ml 300 ml -200 ml 100 ml Intake Oral 360 ml IV Total 842 ml 800 ml Other 100 ml Output Urine Total 200 ml 450 ml 500 ml 200 ml # Voids 1 # Bowel Movements 0 0 0 Result Diagram: 09/02/16 0635 09/02/1655 Imaging Last Impressions Abdomen/Pelvis CT 09/01/162047 Signed Impressions: Service Date/Time: Thursday, September 01, 2016 09:22 - CONCLUSION: 1. Small bilateral effusions with minimal atelectasis at the left lung base. 2. Hiatal hernia. 3. No definite abnormality to explain the patient's abdominal pain is identified. Eitan Perry MD Chest X-Ray 08/31/[id number] Signed Impressions: Service Date/Time: Wednesday, August 31, 2016 19:37 - CONCLUSION: The lungs are clear. Stan Mráquez MD Procedures EGD Other Results Laboratory Tests Test 08/31/16 09/01/16 09/02/16 09/02/16 19:21 03:44 06:35 06:55 Prothrombin Time 12.4 SEC Prothromb Time International 1.1 RATIO Ratio Activated Partial 26.8 SEC Thromboplast Time Magnesium Level 2.0 MG/DL Creatine Kinase MB 1.2 NG/ML B-Type Natriuretic Peptide 6 PG/ML Lipase 70 U/L Total Creatine Kinase 107 U/L Troponin I LESS THAN 0.02 NG/ML White Blood Count 8.8 TH/MM3 Red Blood Count 3.94 MIL/MM3 Hemoglobin 11.4 GM/DL Hematocrit 33.7 % Mean Corpuscular Volume 85.5 FL Mean Corpuscular Hemoglobin 28.8 PG Mean Corpuscular Hemoglobin 33.7 % Concent Red Cell Distribution Width 12.9 % Platelet Count 115 TH/MM3 Mean Platelet Volume 7.9 FL Neutrophils (%) (Auto) 70.3 % Lymphocytes (%) (Auto) 18.5 % Monocytes (%) (Auto) 8.3 % Eosinophils (%) (Auto) 2.0 % Basophils (%) (Auto) 0.9 % Neutrophils # (Auto) 6.2 TH/MM3 Lymphocytes # (Auto) 1.6 TH/MM3 Monocytes # (Auto) 0.7 TH/MM3 Eosinophils # (Auto) 0.2 TH/MM3 Basophils # (Auto) 0.1 TH/MM3 CBC Comment DIFF FINAL Differential Comment Sodium Level 140 MEQ/L Potassium Level 3.5 MEQ/L Chloride Level 106 MEQ/L Carbon Dioxide Level 25.8 MEQ/L Anion Gap 8 MEQ/L Blood Urea Nitrogen 8 MG/DL Creatinine 0.69 MG/DL Estimat Glomerular Filtration 120 ML/MIN Rate Random Glucose 98 MG/DL Calcium Level 7.9 MG/DL Total Bilirubin 0.6 MG/DL Aspartate Amino Transf 15 U/L (AST/SGOT) Alanine Aminotransferase 24 U/L (ALT/SGPT) Alkaline Phosphatase 58 U/L Total Protein 5.7 GM/DL Albumin 2.4 GM/DL Objective Remarks GENERAL: This is a well-nourished, well-developed patient, flushed colored checks SKIN: No rashes, ecchymoses or lesions. Cool and dry. Flushed colored checks HEAD: Atraumatic. Normocephalic. No temporal or scalp tenderness. EYES: Pupils equal round and reactive. Extraocular motions intact. No scleral icterus. No injection or drainage. CARDIOVASCULAR: Tachycardia without murmurs, gallops, or rubs. RESPIRATORY: Clear to auscultation. Breath sounds equal bilaterally. No wheezes , rales, or rhonchi. GASTROINTESTINAL: Abdomen soft, mild tenderness LUQ, nondistended. MUSCULOSKELETAL: Extremities without clubbing, cyanosis, or edema. No joint tenderness, effusion, or edema noted. No calf tenderness. Negative Homans sign bilaterally. NEUROLOGICAL: Awake and alert. No focal deficits. Motor and sensory grossly within normal limits. Five out of 5 muscle strength in all muscle groups. Normal speech. Medications and IVs Current Medications Medications (Trade) Dose Ordered Sig/Liborio Route Start Time Stop Time Status Last Admin (NS 1000 ml Inj) 1,000 ml @ 100 mls/hr Q10H IV 08/31/16 21:28 08/31/16 21:54 (NS Flush) 2 ml BID IV FLUSH 09/01/16 09:00 09/02/16 09:00 (Tylenol) 650 mg Q4H PRN PO 08/31/16 21:30 (Zofran Inj) 4 mg Q6H PRN IVP 08/31/16 21:30 (Reglan Inj) 5 mg Q6H PRN IV PUSH 08/31/16 21:30 (Compazine Supp) 25 mg Q12H PRN RECTAL 08/31/16 21:30 (Lexii-Colace) 1 tab BID PO 09/01/16 09:00 09/02/16 10:42 (Milk Of Magnesia Liq) 30 ml Q12H PRN PO 08/31/16 21:30 (Senokot) 17.2 mg Q12H PRN PO 08/31/16 21:30 (Dulcolax Supp) 10 mg DAILY PRN RECTAL 08/31/16 21:30 (Lactulose Liq) 30 ml DAILY PRN PO 08/31/16 21:30 (NS Flush) 2 ml UNSCH PRN IV FLUSH 08/31/16 21:30 Pantoprazole Sodium 40 mg 40 mg BID IV 09/01/16 09:00 09/02/16 10:43 Thiamine HCl 100 mg/Sodium Chloride 101 ml @ 100 mls/hr Q24H IV 08/31/16 23:00 09/02/16 00:19 Ciprofloxacin/ Dextrose 200 ml @ 200 mls/hr Q12H IV 08/31/16 23:00 09/02/16 12:31 (Flagyl 500 Mg Inj) 100 ml @ 100 mls/hr Q8H IV 08/31/16 22:00 09/02/16 04:57 (Morphine Inj) 2 mg Q4HR PRN IV PUSH 08/31/16 22:45 09/02/16 10:26 (Carafate Liq) 1 gm ACHS PO 09/02/16 11:00 09/02/16 10:50 Miscellaneous Information ALL NURSING DEPARTME... UNSCH PRN .XX 09/02/16 10:30 09/03/16 10:29 A/P Assessment and Plan 1. Sepsis found with Tachycardia, Leukocytosis 14.4, due to suspected Abdominal source started on Cipro and Flagyl Leukocytosis Improved. 2. GI bleed PPIs, H and H, Hemoccult negative, IV fluids, Seen by GI specialist for BI bleed, Coffee ground Emesis, positive Story for NSAIDs and ETOH, Hemoglobin stable, EGD performed, Esophagitis and Gastritis , no bleeding. 3. Intractable nausea and vomit, Improved 4. Atypical chest pain continue Cardiac monitoring, cardiac enzymes negative. 5. Electrolyte derangement replaced 6. EtOH abuse DVT prophylaxis with SCDs will avoid chemical DVT prophylaxis in light of upper GI bleed Discharge Planning Expected discharge in am tomorrow. Juan Multani MD Sep 02, 2016 13:25
[2016-09-02] MEDS ORDERED: POTASSIUM CHLORIDE 20 MEQ CONTROLLED RELEASE TAB PO ONE (17:15)
[2016-09-03] VITALS (7 sets, daily range): BP systolic 104–145; BP diastolic 68–82; PULSE 71–89; RESP 16–20; TEMP 96.7–98.5; O2SAT 93–95
[2016-09-03] MEDS: CIPROFLOXACIN 400 MG PREMIX 200 ML IV SCH ×2 (00:35→01:00)
[2016-09-03] MEDS: THIAMINE INJ 100 MG in SODIUM CHLORIDE 0.9% INJ 100 ML IV SCH (00:35)
[2016-09-03] MEDS: metroNIDAZOLE 500 MG INJ 100 ML IV SCH ×3 (00:36→12:41)
[2016-09-03] MEDS: MORPHINE SULFATE 4 MG/ML INJ IV PUSH PRN ×4 (01:00→15:11)
[2016-09-03] MEDS: SUCRALFATE 1 GM/10 ML CUP PO SCH ×3 (06:23→15:11)
[2016-09-03] MEDS: DOCUSATE SODIUM 50 MG/SENNA 8.6 MG TAB PO SCH (08:48)
[2016-09-03] MEDS: SODIUM CHLORIDE 0.9% FLUSH 10 ML FLUSH IV FLUSH SCH (08:49)
[2016-09-03] MEDS: PANTOPRAZOLE SODIUM 40 MG VIAL IV SCH (08:49)
[2016-09-03] MEDS: SODIUM CHLOR 0.9% 1000 ML INJ 1,000 ML IV SCH ×2 (10:58→19:28)
[2016-09-03] MEDS ORDERED: SOD PHOSPHATE/SOD BIPHOSPHATE (ADULT) ENEMA 133ML RECTAL PRN (15:15)
[2016-09-03] MEDS ORDERED: GLYCERIN ADULT 2 GM SUPP RECTAL ONE (15:15)
[2016-09-03] MEDS ORDERED: LACTULOSE SYRUP 20 GM/30 ML CUP PO ONE (15:15)
[2016-09-03] MEDS ORDERED: PROT40TA PO (15:18)
[2016-09-03] MEDS ORDERED: CIPR-9 PO (15:18)
[2016-09-03] MEDS ORDERED: METR500T10 PO (15:18)
[2016-09-03] MEDS ORDERED: CARA1TAB6 PO (15:18)
--- NOTE | 2016-09-03 15:22 | HHI.PR ---
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 stable in his bedroom, no nausea, vomit or diarrhea. 09/02: Seen in his bedroom, discussed with Patient and Nurse, status post EGD, has Esophagitis, Gastritis, hiatal hernia to continue PPIs, avoid NSAIDs, Carafate, 09/03: Seen in his bedroom and discussed with nurse, he has Constipation will go to Home and no nausea, vomit or diarrhea. Objective Vital Signs Date Time Temp Pulse Resp B/P Pulse Ox O2 Delivery O2 Flow Rate FiO2 09/03/16 12:48 71 09/03/16 12:47 98.5 72 20 104/76 94 09/03/16 11:39 93 09/03/16 08:45 98.2 84 20 119/77 93 09/03/16 05:05 97.0 73 16 117/78 93 09/03/16 00:06 97.4 81 16 116/68 94 09/02/16 21:06 98.2 86 16 111/60 94 09/02/16 20:00 83 09/02/16 16:01 97.9 84 18 103/68 94 I/O 09/02/16 09/02/16 09/02/16 09/03/16 09/03/16 09/03/16 06:59 14:59 22:59 06:59 14:59 22:59 Intake Total 100 ml 1966 ml Output Total 200 ml 1300 ml 1750 ml 150 ml Balance -200 ml 100 ml -1300 ml 216 ml -150 ml Intake Oral 480 ml IV Total 1486 ml Other 100 ml Output Urine Total 200 ml 1300 ml 1750 ml 150 ml # Bowel Movements 0 Result Diagram: 09/02/16 0635 09/02/16 0655 Imaging Last Impressions Abdomen/Pelvis CT 09/01/162047 Signed Impressions: Service Date/Time: Thursday, September 01, 2016 09:22 - CONCLUSION: 1. Small bilateral effusions with minimal atelectasis at the left lung base. 2. Hiatal hernia. 3. No definite abnormality to explain the patient's abdominal pain is identified. Eitan Perry MD Chest X-Ray 08/31/16 190 Signed Impressions: Service Date/Time: Wednesday, August 31, 2016 19:37 - CONCLUSION: The lungs are clear. Stan Márquez MD Procedures EGD Other Results Laboratory Tests Test 08/31/16 09/01/16 09/02/16 09/02/16 19:21 03:44 06:35 06:55 Prothrombin Time 12.4 SEC Prothromb Time International 1.1 RATIO Ratio Activated Partial 26.8 SEC Thromboplast Time Magnesium Level 2.0 MG/DL Creatine Kinase MB 1.2 NG/ML B-Type Natriuretic Peptide 6 PG/ML Lipase 70 U/L Total Creatine Kinase 107 U/L Troponin I LESS THAN 0.02 NG/ML White Blood Count 8.8 TH/MM3 Red Blood Count 3.94 MIL/MM3 Hemoglobin 11.4 GM/DL Hematocrit 33.7 % Mean Corpuscular Volume 85.5 FL Mean Corpuscular Hemoglobin 28.8 PG Mean Corpuscular Hemoglobin 33.7 % Concent Red Cell Distribution Width 12.9 % Platelet Count 115 TH/MM3 Mean Platelet Volume 7.9 FL Neutrophils (%) (Auto) 70.3 % Lymphocytes (%) (Auto) 18.5 % Monocytes (%) (Auto) 8.3 % Eosinophils (%) (Auto) 2.0 % Basophils (%) (Auto) 0.9 % Neutrophils # (Auto) 6.2 TH/MM3 Lymphocytes # (Auto) 1.6 TH/MM3 Monocytes # (Auto) 0.7 TH/MM3 Eosinophils # (Auto) 0.2 TH/MM3 Basophils # (Auto) 0.1 TH/MM3 CBC Comment DIFF FINAL Differential Comment Sodium Level 140 MEQ/L Potassium Level 3.5 MEQ/L Chloride Level 106 MEQ/L Carbon Dioxide Level 25.8 MEQ/L Anion Gap 8 MEQ/L Blood Urea Nitrogen 8 MG/DL Creatinine 0.69 MG/DL Estimat Glomerular Filtration 120 ML/MIN Rate Random Glucose 98 MG/DL Calcium Level 7.9 MG/DL Total Bilirubin 0.6 MG/DL Aspartate Amino Transf 15 U/L (AST/SGOT) Alanine Aminotransferase 24 U/L (ALT/SGPT) Alkaline Phosphatase 58 U/L Total Protein 5.7 GM/DL Albumin 2.4 GM/DL Objective Remarks GENERAL: This is a well-nourished, well-developed patient, flushed colored checks SKIN: No rashes, ecchymoses or lesions. Cool and dry. Flushed colored checks HEAD: Atraumatic. Normocephalic. No temporal or scalp tenderness. EYES: Pupils equal round and reactive. Extraocular motions intact. No scleral icterus. No injection or drainage. CARDIOVASCULAR: Tachycardia without murmurs, gallops, or rubs. RESPIRATORY: Clear to auscultation. Breath sounds equal bilaterally. No wheezes , rales, or rhonchi. GASTROINTESTINAL: Abdomen soft, mild tenderness LUQ, nondistended. MUSCULOSKELETAL: Extremities without clubbing, cyanosis, or edema. No joint tenderness, effusion, or edema noted. No calf tenderness. Negative Homans sign bilaterally. NEUROLOGICAL: Awake and alert. No focal deficits. Motor and sensory grossly within normal limits. Five out of 5 muscle strength in all muscle groups. Normal speech. Medications and IVs Current Medications Medications (Trade) Dose Ordered Sig/Liborio Route Start Time Stop Time Status Last Admin (NS 1000 ml Inj) 1,000 ml @ 100 mls/hr Q10H IV 08/31/16 21:28 09/03/16 10:58 (NS Flush) 2 ml BID IV FLUSH 09/01/16 09:00 09/02/16 09:00 (Tylenol) 650 mg Q4H PRN PO 08/31/16 21:30 (Zofran Inj) 4 mg Q6H PRN IVP 08/31/16 21:30 (Reglan Inj) 5 mg Q6H PRN IV PUSH 08/31/16 21:30 (Compazine Supp) 25 mg Q12H PRN RECTAL 08/31/16 21:30 (Lexii-Colace) 1 tab BID PO 09/01/16 09:00 09/03/16 08:48 (Milk Of Magnesia Liq) 30 ml Q12H PRN PO 08/31/16 21:30 (Senokot) 17.2 mg Q12H PRN PO 08/31/16 21:30 (Dulcolax Supp) 10 mg DAILY PRN RECTAL 08/31/16 21:30 (Lactulose Liq) 30 ml DAILY PRN PO 08/31/16 21:30 (NS Flush) 2 ml UNSCH PRN IV FLUSH 08/31/16 21:30 Pantoprazole Sodium 40 mg 40 mg BID IV 09/01/16 09:00 09/03/16 08:49 Thiamine HCl 100 mg/Sodium Chloride 101 ml @ 100 mls/hr Q24H IV 08/31/16 23:00 09/03/16 00:35 Ciprofloxacin/ Dextrose 200 ml @ 200 mls/hr Q12H IV 08/31/16 23:00 09/03/16 01:00 (Flagyl 500 Mg Inj) 100 ml @ 100 mls/hr Q8H IV 08/31/16 22:00 09/03/16 12:41 (Morphine Inj) 2 mg Q4HR PRN IV PUSH 08/31/16 22:45 09/03/16 15:11 (Carafate Liq) 1 gm ACHS PO 09/02/16 11:00 09/03/16 15:11 A/P Assessment and Plan 1. Sepsis found with Tachycardia, Leukocytosis 14.4, due to suspected Abdominal source started on Cipro and Flagyl Leukocytosis Improved. continue Cipro and Flagyl for seven days more at home. 2. GI bleed PPIs, H and H, Hemoccult negative, IV fluids, Seen by GI specialist for BI bleed, Coffee ground Emesis, positive Story for NSAIDs and ETOH, Hemoglobin stable, EGD performed, Esophagitis and Gastritis , no bleeding. continue Carafate and Protonix at Home. 3. Intractable nausea and vomit, Improved 4. Atypical chest pain continue Cardiac monitoring, cardiac enzymes negative. 5. Electrolyte derangement replaced 6. EtOH abuse strongly recommended to stop drinking behavior. DVT prophylaxis with SCDs will avoid chemical DVT prophylaxis in light of upper GI bleed Discharge Planning Discharge Today. Juan Multani MD Sep 03, 2016 15:22
--- NOTE | 2016-09-03 15:24 | HHI.DS ---
Discharge Summary Admission Date Aug 31, 2016 at 21:46 Discharge Date: Sep 03, 2016 Admitting Diagnosis cp ro mi, intractable vomiting (1) Sepsis ICD Code: A41.9 Diagnosis: Principal (2) Intractable vomiting ICD Code: R11.10 Diagnosis: Principal (3) GI bleed ICD Code: K92.2 Diagnosis: Principal (4) Chest pain ICD Code: R07.9 Diagnosis: Principal Procedures EGD Brief History - From Admission Written by Alessandra Godoy, acting as scribe for Dr. Erazo on 08/31/16 at 21 :37. This note was transcribed by star HUSAIN. I, Dr. Tiff Erazo personally performed the history, physical exam, and medical decision making; and confirmed the accuracy of the information in the transcribed note. Authenticated by Dr. Tiff Erazo on 08/31/16 at 21:37. The patient is a 51 year old male with a past medical history which includes HTN , cerebrovascular accident with mild residual weakness of the right side, leg tumor removed, chronic low back pain status post low back surgery with a right foot drop reportedly related to the surgery, pancreatitis, acid reflux, and depression. Patient presents to the [facility] emergency department for with complaints of chest pain. Patient report he was awoke from sleep with chest pain. When patient asked to point to the pain he indicates midepigastric area. Describes pain as severe contant sharp stabbing sensation. Patient reports pain is better after nitroglycerine given on ER. Pain is associated with brown colored vomiting. Patient reports, "I ain't got nothing left in my gut." Endorses Chills and cough productive of white colored phlegm as well. Patient reports he drank two 4 [place] today. Patient has not been drinking for the last 7 months as he was in [facility]. Patient has been taking ibuprofen 3-4 times a day for chronic back pain while he was incarcerated. Patient denies diarrhea constipation or shortness of breath. CBC/BMP: 09/02/16 0635 09/02/16 0655 Significant Findings Laboratory Tests Test 08/31/16 08/31/16 09/01/16 09/02/16 19:21 21:47 03:44 06:35 White Blood Count 14.4 TH/MM3 12.3 TH/MM3 (4.0-11.0) (4.0-11.0) Neutrophils (%) (Auto) 86.4 % 70.1 % 70.3 % (16.0-70.0) (16.0-70.0) (16.0-70.0) Neutrophils # (Auto) 12.4 TH/MM3 8.6 TH/MM3 (1.8-7.7) (1.8-7.7) Prothrombin Time 12.4 SEC (9.8-11.6) Potassium Level 3.4 MEQ/L (3.5-5.1) Chloride Level 96 MEQ/L (98-107) Anion Gap 16 MEQ/L (5-15) Blood Urea Nitrogen 6 MG/DL (7-18) 6 MG/DL (7-18) Estimat Glomerular Filtration 86 ML/MIN (>89) Rate Random Glucose 151 MG/DL (74-106) Aspartate Amino Transf 38 U/L (15-37) (AST/SGOT) Troponin I LESS THAN 0.02 LESS THAN 0.02 LESS THAN 0.02 NG/ML NG/ML NG/ML (0.02-0.05) (0.02-0.05) (0.02-0.05) Lipase 70 U/L (73-393) Red Blood Count 4.37 MIL/MM3 3.94 MIL/MM3 (4.50-5.90) (4.50-5.90) Hemoglobin 12.8 GM/DL 11.4 GM/DL (13.0-17.0) (13.0-17.0) Hematocrit 36.6 % 33.7 % (39.0-51.0) (39.0-51.0) Monocytes (%) (Auto) 9.0 % (0.0-8.0) 8.3 % (0.0-8.0) Monocytes # (Auto) 1.1 TH/MM3 (0-0.9) Calcium Level 8.0 MG/DL (8.5-10.1) Albumin 2.9 GM/DL (3.4-5.0) Platelet Count 115 TH/MM3 (150-450) Test 09/02/16 06:55 Calcium Level 7.9 MG/DL (8.5-10.1) Total Protein 5.7 GM/DL (6.4-8.2) Albumin 2.4 GM/DL (3.4-5.0) Imaging Last Impressions Abdomen/Pelvis CT 09/01/162047 Signed Impressions: Service Date/Time: Thursday, September 01, 2016 09:22 - CONCLUSION: 1. Small bilateral effusions with minimal atelectasis at the left lung base. 2. Hiatal hernia. 3. No definite abnormality to explain the patient's abdominal pain is identified. Eitan Perry MD Chest X-Ray 08/31/16 1902 Signed Impressions: Service Date/Time: Wednesday, August 31, 2016 19:37 - CONCLUSION: The lungs are clear. Stan Márquez MD PE at Discharge GENERAL: This is a well-nourished, well-developed patient, flushed colored checks SKIN: No rashes, ecchymoses or lesions. Cool and dry. Flushed colored checks HEAD: Atraumatic. Normocephalic. No temporal or scalp tenderness. EYES: Pupils equal round and reactive. Extraocular motions intact. No scleral icterus. No injection or drainage. CARDIOVASCULAR: Tachycardia without murmurs, gallops, or rubs. RESPIRATORY: Clear to auscultation. Breath sounds equal bilaterally. No wheezes , rales, or rhonchi. GASTROINTESTINAL: Abdomen soft, mild tenderness LUQ, nondistended. MUSCULOSKELETAL: Extremities without clubbing, cyanosis, or edema. No joint tenderness, effusion, or edema noted. No calf tenderness. Negative Homans sign bilaterally. NEUROLOGICAL: Awake and alert. No focal deficits. Motor and sensory grossly within normal limits. Five out of 5 muscle strength in all muscle groups. Normal speech. 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 stable in his bedroom, no nausea, vomit or diarrhea. 09/02: Seen in his bedroom, discussed with Patient and Nurse, status post EGD, has Esophagitis, Gastritis, hiatal hernia to continue PPIs, avoid NSAIDs, Carafate, 09/03: Seen in his bedroom and discussed with nurse, he has Constipation will go to Home and no nausea, vomit or diarrhea. Assessment and Plan 1. Sepsis found with Tachycardia, Leukocytosis 14.4, due to suspected Abdominal source started on Cipro and Flagyl Leukocytosis Improved. continue Cipro and Flagyl for seven days more at home. 2. GI bleed PPIs, H and H, Hemoccult negative, IV fluids, Seen by GI specialist for BI bleed, Coffee ground Emesis, positive Story for NSAIDs and ETOH, Hemoglobin stable, EGD performed, Esophagitis and Gastritis , no bleeding. continue Carafate and Protonix at Home. 3. Intractable nausea and vomit, Improved 4. Atypical chest pain continue Cardiac monitoring, cardiac enzymes negative. 5. Electrolyte derangement replaced 6. EtOH abuse strongly recommended to stop drinking behavior. DVT prophylaxis with SCDs will avoid chemical DVT prophylaxis in light of upper GI bleed Discharge Planning Discharge Today. Pt Condition on Discharge: Good Discharge Disposition: Discharge Home Discharge Time: > 30 minutes Discharge Instructions DIET: Follow Instructions for: As Tolerated, No Restrictions Activities you can perform: Regular-No Restrictions Juan Multani MD Sep 03, 2016 15:24
== END 2016-09-03 20:46 | disposition home or self-care (01) | DRG 871 ==
LOC: NEPE 18:13 → NEDA 21:13 → OBSVTOIN 21:46 → N05B 22:46
PROVIDERS: ADMIT Internal Medicine; ATTEND Internal Medicine
PROC: 0DB58ZX Excision of Esophagus, Via Natural or Artificial Opening Endoscopic, Diagnostic (ICD-10-PCS; principal; 2016-09-02 09:09)
DX: A41.9 Sepsis, unspecified organism (principal); K29.71 Gastritis, unspecified, with bleeding; I69.251 Hemiplegia and hemiparesis following other nontraumatic intracranial hemorrhage affecting right dominant side; I10 Essential (primary) hypertension; K29.70 Gastritis, unspecified, without bleeding; F32.9 Major depressive disorder, single episode, unspecified; G89.29 Other chronic pain; M54.5 Low back pain; M21.371 Foot drop, right foot; F17.210 Nicotine dependence, cigarettes, uncomplicated; I44.4 Left anterior fascicular block; K21.0 Gastro-esophageal reflux disease with esophagitis; K44.9 Diaphragmatic hernia without obstruction or gangrene; E87.6 Hypokalemia; F10.10 Alcohol abuse, uncomplicated; K59.00 Constipation, unspecified
CPT/HCPCS: 71010; 74177; 80053; 82550; 82552; 83690; 83735; 83880; 84484; 85014; 85018; 85025; 85610; 85730; 88305; 88312; 93005; 96361; 96374; 96375; C9113; J0744; J0780; J2270; J2405; J3411; J3480; J7030; J7040; Q9967

== ENCOUNTER 2016-09-10 21:22 | Emergency (ER) | payer SELFPAY ==
[~2016-09-10] VITALS: Ht 175.3 cm; Wt 85.0 kg
[~2016-09-10 21:22] MED LIST: CARA1TAB6 PO; CIPR-9 PO; METR500T10 PO; PROT40TA PO
[2016-09-10 21:28] VITALS: BP 160/100; PULSE 108; RESP 18; TEMP 97.8; O2SAT 99
--- NOTE | 2016-09-10 21:37 | PD ---
HPI Chief Complaint: Chest Pain Time Seen by Provider: 21:27 Travel History International Travel<30 days: No Contact w/Intl Traveler<30days: No Traveled to known affect area: No History of Present Illness HPI This patient is a local alcoholic who was admitted to the hospital 10 days ago. He had endoscopy which showed esophagitis. He was drinking heavily today. Denies intentional overdose or drug use. Complains of epigastric pain. He initially said chest pain on the complaint but he points right to his epigastrium when asked where he hurts. He has history of pancreatitis. Severity is moderate. Duration one day. No alleviating factors. No rectal bleeding or melena or hematemesis PFSH Past Medical History Depression: Yes Cerebrovascular Accident: Yes (TIA) Hypertension: Yes Pancreatitis: Yes Tetanus Vaccination: Never Vaccinated Influenza Vaccination: No Past Surgical History Appendectomy: Yes Social History Alcohol Use: Yes (4-6 4 locos per day) Tobacco Use: Yes (1 ppd) Substance Use: No Allergies-Medications (Allergen,Severity, Reaction): Coded Allergies: No Known Allergies (Unverified , 09/10/16) Reported Meds & Prescriptions Reported Meds & Active Scripts Active Carafate (Sucralfate) 1 Gm Tab 1 Gm PO QID On empty stomach Protonix (Pantoprazole Sodium) 40 Mg Tab 40 Mg PO DAILY Review of Systems General / Constitutional: No: Fever Eyes: No: Visual changes HENT: No: Headaches Cardiovascular: No: Irregular Rhythm Respiratory: No: Shortness of Breath Gastrointestinal: Positive: Nausea, Abdominal Pain Genitourinary: No: Dysuria Musculoskeletal: No: Pain Skin: No Rash Neurologic: No: Weakness Psychiatric: Positive: Substance Abuse, No: Depression Endocrine: No: Polydipsia Hematologic/Lymphatic: No: Easy Bruising Physical Exam Narrative GENERAL: Disheveled well-developed patient smells of alcohol . SKIN: Focused skin assessment reveals no rash and nodules. Skin is Warm and dry. HEAD: Atraumatic. Normocephalic. EYES: Pupils equal and round. No scleral icterus. No injection or drainage. ENT: No nasal bleeding or discharge. Mucous membranes pink and moist. NECK: Trachea midline. No JVD. CARDIOVASCULAR: Regular rate and rhythm. No murmur appreciated. RESPIRATORY: No accessory muscle use. Clear to auscultation. Breath sounds equal bilaterally. GASTROINTESTINAL: Abdomen soft, mild epigastric tenderness without rebound or guarding, nondistended. Hepatic and splenic margins not palpable. No right upper quadrant tenderness or lower quadrant tenderness MUSCULOSKELETAL: No obvious deformities. No clubbing. No cyanosis. No edema. NEUROLOGICAL: Awake and alert. No obvious cranial nerve deficits. Motor grossly within normal limits. Normal speech. PSYCHIATRIC: Appropriate mood and affect; insight and judgment poor . Data Data Last Documented VS Vital Signs Date Time Temp Pulse Resp B/P Pulse Ox O2 Delivery O2 Flow Rate FiO2 09/10/16 21:40 99 Room Air 09/10/16 21:28 97.8 108 18 160/100 Orders Electrocardiogram (09/10/16 21:32) Ckmb (Isoenzyme) Profile (09/10/16 21:32) Complete Blood Count With Diff (09/10/16 21:32) Comprehensive Metabolic Panel (09/10/16 21:32) Prothrombin Time / Inr (Pt) (09/10/16 21:32) Act Partial Throm Time (Ptt) (09/10/16 21:32) Troponin I (09/10/16 21:32) Lipase (09/10/16 21:32) Chest, Single Ap (09/10/16 21:32) Ecg Monitoring (09/10/16 21:32) Iv Access Insert/Monitor (09/10/16 21:32) Oximetry (09/10/16 21:32) Sodium Chloride 0.9% Flush (Ns Flush) (09/10/16 21:45) Ondansetron Inj (Zofran Inj) (09/10/16 21:45) Pantoprazole Inj (Protonix Inj) (09/10/16 21:45) Alcohol (Ethanol) (09/10/16 21:33) CKMB (09/10/16 21:38) CKMB% (09/10/16 21:38) Labs Laboratory Tests Test 09/10/16 21:38 White Blood Count 12.3 TH/MM3 Red Blood Count 4.47 MIL/MM3 Hemoglobin 13.2 GM/DL Hematocrit 37.7 % Mean Corpuscular Volume 84.3 FL Mean Corpuscular Hemoglobin 29.5 PG Mean Corpuscular Hemoglobin 35.1 % Concent Red Cell Distribution Width 13.7 % Platelet Count 307 TH/MM3 Mean Platelet Volume 7.3 FL Neutrophils (%) (Auto) 71.5 % Lymphocytes (%) (Auto) 19.4 % Monocytes (%) (Auto) 6.6 % Eosinophils (%) (Auto) 2.2 % Basophils (%) (Auto) 0.3 % Neutrophils # (Auto) 8.8 TH/MM3 Lymphocytes # (Auto) 2.4 TH/MM3 Monocytes # (Auto) 0.8 TH/MM3 Eosinophils # (Auto) 0.3 TH/MM3 Basophils # (Auto) 0.0 TH/MM3 CBC Comment DIFF FINAL Differential Comment Prothrombin Time 11.1 SEC Prothromb Time International 1.0 RATIO Ratio Activated Partial 27.1 SEC Thromboplast Time Sodium Level 143 MEQ/L Potassium Level 3.9 MEQ/L Chloride Level 105 MEQ/L Carbon Dioxide Level 29.6 MEQ/L Anion Gap 8 MEQ/L Blood Urea Nitrogen 7 MG/DL Creatinine 0.81 MG/DL Estimat Glomerular Filtration 100 ML/MIN Rate Random Glucose 100 MG/DL Calcium Level 8.2 MG/DL Total Bilirubin 0.3 MG/DL Aspartate Amino Transf 37 U/L (AST/SGOT) Alanine Aminotransferase 34 U/L (ALT/SGPT) Alkaline Phosphatase 70 U/L Total Creatine Kinase 279 U/L Troponin I LESS THAN 0.02 NG/ML Total Protein 7.5 GM/DL Albumin 3.2 GM/DL Lipase 258 U/L Ethyl Alcohol Level 312 MG/DL MDM Medical Decision Making Medical Screen Exam Complete: Yes Emergency Medical Condition: Yes Medical Record Reviewed: Yes Differential Diagnosis Differential diagnosis includes pancreatitis, biliary colic, hepatitis, GERD, peptic ulcer disease. Narrative Course I have reviewed the patient's electronic medical record. Reviewed his endoscopy report as well as discharge summary and H&P from 10 days ago IV placed I reviewed the EKG which shows sinus rhythm and no ST elevation I reviewed the chest x-ray shows atelectasis in both bases Extended cardiac monitoring shows sinus rhythm without ectopy CBC is normal Metabolic profile is normal CK is normal Troponin is normal Coagulation studies are normal LFTs I reviewed Lipase is normal I gave him IV Zofran and IV Protonix Workup here is essentially negative. He is having epigastric pain after a bout of drinking. Alcohol level is 312 and he is acutely intoxicated He will be given time to sober up and when he can properly talk and walk will be stable for outpatient follow-up Diagnosis Primary Impression: Acute epigastric pain Additional Impression: Alcohol intoxication in active alcoholic Qualified Code: F10.120 - Alcohol intoxication in active alcoholic, uncomplicated Additional Instructions: The patient was advised to follow up with their physician and return if they worsen. Recommend [facility] alcohol rehabilitation services I have recommended clear liquids for 24 hours, then gradually advance as tolerated. Med/Other Pt SpecificInfo: Other Disposition: 01 DISCHARGE HOME Condition: Stable Marlon Worthington MD Sep 10, 2016 21:37
[2016-09-10 21:40] VITALS: O2SAT 99
[2016-09-10] MEDS ORDERED: ONDANSETRON HCL 4 MG/2 ML VIAL IV ONE (21:45)
[2016-09-10] MEDS ORDERED: PANTOPRAZOLE SODIUM 40 MG VIAL IV PUSH ONE (21:45)
[2016-09-10] MEDS ORDERED: SODIUM CHLORIDE 0.9% FLUSH 10 ML FLUSH IVF PRN (21:45)
[2016-09-10 21:51] LABS: AUTOMATED NEUTROPHIL # 8.8 TH/MM3 (1.8-7.7); BASOPHIL % 0.3 % (0.0-2.0); EOSINOPHIL # 0.3 TH/MM3 (0-0.4); EOSINOPHIL % 2.2 % (0.0-4.0); HEMATOCRIT 37.7 % (39.0-51.0); HEMO FLAGS DIFF FINAL; LYMPH % 19.4 % (9.0-44.0); LYMPHOCYTE # 2.4 TH/MM3 (1.0-4.8); MEAN CELL VOLUME 84.3 FL (80.0-100.0); MEAN CORPUSCULAR HEMOGLOBIN 29.5 PG (27.0-34.0); MEAN CORPUSCULAR HGB CONC 35.1 % (32.0-36.0); MONO % 6.6 % (0.0-8.0); NEUT % 71.5 % (16.0-70.0); PLATELET COUNT 307 TH/MM3 (150-450); RED BLOOD COUNT 4.47 MIL/MM3 (4.50-5.90); RED CELL DISTRIBUTION WIDTH 13.7 % (11.6-17.2); WHITE BLOOD COUNT 12.3 TH/MM3 (4.0-11.0)
--- NOTE | 2016-09-10 21:58 | RADRPT ---
EXAM DATE/TIME: 09/10/2016 21:46 [facility] COMPARISON: CT ABDOMEN & PELVIS W CONTRAST, September 01, 2016, 9:22. CHEST SINGLE AP, August 31, 2016, 19:37. INDICATIONS : Chest pain. MEDICAL HISTORY : Hypertension. SURGICAL HISTORY : None. ENCOUNTER: Initial ACUITY: 1 day PAIN SCORE: 7/10 LOCATION: Bilateral chest FINDINGS: Portable AP view of the chest demonstrates a normal-sized cardiac silhouette. There is mild airspace opacity at both lung bases. No pleural effusion or pneumothorax is visualized. Bones demonstrate no a cute finding. CONCLUSION: Mild airspace opacity at both lung bases representing either atelectasis or mild consolidation. Recen t CT demonstrated a small left pleural effusion with adjacent atelectasis. Ulises Delvalle MD on September 10, 2016 at 21:54 Board Certified Radiologist. This report was verified electronically.
[2016-09-10 22:00] LABS: APTT (PATIENT) 27.1 SEC (24.3-30.1); PROTHROMBIN TIME - PATIENT 11.1 SEC (9.8-11.6)
[2016-09-10 22:13] LABS: ALT (GPT) 34 U/L (12-78); ANION GAP 8 MEQ/L (5-15); AST (GOT) 37 U/L (15-37); BICARBONATE 29.6 MEQ/L (21.0-32.0); BLOOD UREA NITROGEN 7 MG/DL (7-18); CHLORIDE 105 MEQ/L (98-107); GLOMERULAR FILTRATION RATE 100 ML/MIN (>89); POTASSIUM 3.9 MEQ/L (3.5-5.1); SODIUM (NA) 143 MEQ/L (136-145)
[2016-09-10 22:17] LABS: ALKALINE PHOSPHATASE 70 U/L (45-117); CREATINE KINASE 279 U/L (39-308); TOTAL BILIRUBIN ADULT 0.3 MG/DL (0.2-1.0)
[2016-09-10 22:44] LABS: CKMB 3.1 NG/ML (0.5-3.6)
--- NOTE | 2016-09-11 14:01 | EKG ---
Date Performed: 09/10/2016 Time Performed: 21:36:04 PTAGE: 51 years EKG: SINUS TACHYCARDIA MARKED LEFT AXIS DEVIATION ABNORMAL ECG Compared to prior tracing no sign ificant change PREVIOUS TRACING : 08/31/2016 21.50 DOCTOR: Janett Betts Interpretating Date/Time 09/11/2016 13:52:58
== END 2016-09-10 23:01 | disposition home or self-care (01) ==
LOC: NEPC 21:22
DX: R10.13 Epigastric pain (principal); F10.120 Alcohol abuse with intoxication, uncomplicated; R11.0 Nausea; R07.9 Chest pain, unspecified; K85.90 Acute pancreatitis without necrosis or infection, unspecified; F32.9 Major depressive disorder, single episode, unspecified; I10 Essential (primary) hypertension; Z86.73 Personal history of transient ischemic attack (TIA), and cerebral infarction without residual deficits; Z79.899 Other long term (current) drug therapy
CPT/HCPCS: 71010; 80053; 80307; 82550; 82552; 83690; 84484; 85025; 85610; 85730; 93005; 96374; 96375; 99285; C9113; J2405

== ENCOUNTER 2016-09-14 12:21 | Emergency (ER) | payer OTHER ==
[~2016-09-14] VITALS: Ht 177.8 cm; Wt 79.0 kg
[~2016-09-14 12:21] MED LIST changes: -CIPR-9 PO; -METR500T10 PO
[2016-09-14 12:32] VITALS: BP 145/80; PULSE 90; RESP 18; TEMP 98; O2SAT 98
[2016-09-14] MEDS ORDERED: SODIUM CHLORIDE 0.9% FLUSH 10 ML FLUSH IVF PRN (12:45)
--- NOTE | 2016-09-14 12:49 | PD ---
HPI Chief Complaint: Psychiatric Symptoms Time Seen by Provider: 12:38 Travel History International Travel<30 days: No Contact w/Intl Traveler<30days: No Traveled to known affect area: No History of Present Illness HPI 51yo M with PMH of HTN, CVA, chronic back pain, pancreatitis, depression presents to the ED under [place] Act because he asked the officer if he knew of any detox facilities and then asked if he could have his gun to shoot himself. Pt also complaint of left sided chest pain for 4 hours. Pain is sharp and nonradiating. Pt has recently gotten out of shelter and this is the third time he has been here in August. Pt was admitted 08/31/16-09/03/16 for atypical chest pain and intractable vomiting and had EGD that showed esophagitis, gastritis. Pt was here again on 09/10/16 for epigastric pain. Pt states he has epigastric pain for over 1 year. States he drank 3 beers today. Denies any fever, sob, n/ v, abdominal pain, focal weakness or numbness. PFSH Past Medical History Depression: Yes Cerebrovascular Accident: Yes (TIA) Hypertension: Yes Pancreatitis: Yes Past Surgical History Appendectomy: Yes Social History Alcohol Use: Yes (4-6 4 locos per day) Tobacco Use: Yes (1 ppd) Substance Use: No Allergies-Medications (Allergen,Severity, Reaction): Coded Allergies: No Known Allergies (Unverified , 09/10/16) Reported Meds & Prescriptions Reported Meds & Active Scripts Active No Active Prescriptions or Reported Medications Review of Systems Except as stated in HPI: all other systems reviewed are Neg Physical Exam Narrative GENERAL: 51yo M not in distress. SKIN: Focused skin assessment warm/dry. HEAD: Atraumatic. Normocephalic. EYES: Pupils equal and round at 4mm bilaterally. No scleral icterus. No injection or drainage. ENT: No nasal bleeding or discharge. Mucous membranes pink and moist. NECK: Trachea midline. No JVD. CARDIOVASCULAR: Regular rate and rhythm. No murmur appreciated. RESPIRATORY: No accessory muscle use. Clear to auscultation. Breath sounds equal bilaterally. GASTROINTESTINAL: Abdomen soft, non-tender, nondistended. No rebound tenderness or guarding. MUSCULOSKELETAL: No obvious deformities. No clubbing. No cyanosis. No edema. NEUROLOGICAL: Awake and alert. AAOx3. No obvious cranial nerve deficits. Motor grossly within normal limits. Normal speech. +AOB. Data Data Last Documented VS Vital Signs Date Time Temp Pulse Resp B/P Pulse Ox O2 Delivery O2 Flow Rate FiO2 09/15/16 11:39 82 18 131/94 96 Room Air 09/15/16 06:10 98.8 Orders Electrocardiogram (09/14/16 12:42) Basic Metabolic Panel (Bmp) (09/14/16 12:42) Ckmb (Isoenzyme) Profile (09/14/16 12:42) Complete Blood Count With Diff (09/14/16 12:42) Magnesium (Mg) (09/14/16 12:42) Prothrombin Time / Inr (Pt) (09/14/16 12:42) Act Partial Throm Time (Ptt) (09/14/16 12:42) Troponin I (09/14/16 12:42) Lipase (09/14/16 12:42) Chest, Single Ap (09/14/16 12:42) Ecg Monitoring (09/14/16 12:42) Bilateral Bp Monitoring (09/14/16 12:42) Iv Access Insert/Monitor (09/14/16 12:42) Oximetry (09/14/16 12:42) Oxygen Administration (09/14/16 12:42) Sodium Chloride 0.9% Flush (Ns Flush) (09/14/16 12:45) Alcohol (Ethanol) (09/14/16 12:42) Psych Screen (09/14/16 12:42) Drug Screen, Random Urine (09/14/16 13:16) CKMB (09/14/16 13:00) CKMB% (09/14/16 13:00) Midazolam Inj (Versed Inj) (09/14/16 14:00) Haloperidol Inj (Haldol Inj) (09/14/16 14:00) Ct Brain W/O Iv Contrast(Rout) (09/14/16 ) Restraints Non-Violent LEX.Q3H (09/14/16 13:59) Rn Clinical Resource / Telemetry LEX.Q8H (09/14/16 14:00) Ondansetron Inj (Zofran Inj) (09/14/16 19:30) Prochlorperazine Inj (Compazine Inj) (09/14/16 22:45) Ondansetron Inj (Zofran Inj) (09/14/16 23:00) Diphenhydramine Inj (Benadryl Inj) (09/14/16 23:00) Alcohol Withdrawal Asmt-Ciwa ONCE (09/15/16 01:52) Flumazenil Inj (Romazicon Inj) (09/15/16 02:00) Lorazepam (Ativan) (09/15/16 02:00) Lorazepam Inj (Ativan Inj) (09/15/16 02:00) Lorazepam (Ativan) (09/15/16 02:00) Lorazepam Inj (Ativan Inj) (09/15/16 02:00) Lorazepam Inj (Ativan Inj) (09/15/16 02:00) Lorazepam Inj (Ativan Inj) (09/15/16 02:00) Diet Regular Basic (09/15/16 Breakfast) Diet Regular Basic (09/15/16 Lunch) Labs Laboratory Tests Test 09/14/16 13:00 White Blood Count 8.8 TH/MM3 Red Blood Count 4.54 MIL/MM3 Hemoglobin 13.5 GM/DL Hematocrit 38.8 % Mean Corpuscular Volume 85.4 FL Mean Corpuscular Hemoglobin 29.8 PG Mean Corpuscular Hemoglobin 34.9 % Concent Red Cell Distribution Width 14.1 % Platelet Count 274 TH/MM3 Mean Platelet Volume 7.3 FL Neutrophils (%) (Auto) 69.7 % Lymphocytes (%) (Auto) 21.4 % Monocytes (%) (Auto) 6.5 % Eosinophils (%) (Auto) 1.3 % Basophils (%) (Auto) 1.1 % Neutrophils # (Auto) 6.2 TH/MM3 Lymphocytes # (Auto) 1.9 TH/MM3 Monocytes # (Auto) 0.6 TH/MM3 Eosinophils # (Auto) 0.1 TH/MM3 Basophils # (Auto) 0.1 TH/MM3 CBC Comment DIFF FINAL Differential Comment Prothrombin Time 11.0 SEC Prothromb Time International 1.0 RATIO Ratio Activated Partial 28.2 SEC Thromboplast Time Sodium Level 136 MEQ/L Potassium Level 4.0 MEQ/L Chloride Level 100 MEQ/L Carbon Dioxide Level 26.6 MEQ/L Anion Gap 9 MEQ/L Blood Urea Nitrogen 6 MG/DL Creatinine 0.65 MG/DL Estimat Glomerular Filtration 129 ML/MIN Rate Random Glucose 86 MG/DL Calcium Level 8.2 MG/DL Magnesium Level 2.3 MG/DL Total Creatine Kinase 237 U/L Creatine Kinase MB 3.6 NG/ML Troponin I LESS THAN 0.02 NG/ML Lipase 289 U/L Urine Opiates Screen NEG Urine Barbiturates Screen NEG Urine Amphetamines Screen NEG Urine Benzodiazepines Screen NEG Urine Cocaine Screen NEG Urine Cannabinoids Screen NEG Ethyl Alcohol Level 274 MG/DL MDM Medical Decision Making Medical Screen Exam Complete: Yes Emergency Medical Condition: Yes Interpretation(s) EKG: NSR 88bpm. LAD. No ST segment elevation or depression. Differential Diagnosis Alcohol intoxication vs. homelessness vs. atypical chest pain vs. malingering vs. pancreatitis vs. gastritis Narrative Course 51yo M brought in as pat[place] act for wanting to end his life. Pt has been here 3 times this month. States he wants to end it all but continues to drink. Labs reviewed, no leukocytosis. Troponin negative. Lipase normal. Pt did not have abdominal pain on exam. Blood alcohol 274. CXR negative. Chest pain is very atypical, do not think it is cardiac. At 2:00pm, pt started banging his head against the wall. Pt has a sitter. Pt is a threat to himself. Given versed and haldol IV. Pt placed on continuous cardiac cath lab manager and end tidal CO2. No laceration or hematoma seen on occiput where he was banging his head. Will still obtain CT brain as precaution. CT brain showed no acute intracranial abnormality. Pt medically clear for psych evaluation. While waiting to be evaluated by psych, pt complained of nausea so zofran was given. Pt is now awake, alert and pending psych evaluation. Diagnosis Primary Impression: ALCOHOL ABUSE, UNCOMPLICATED Scripts No Active Prescriptions or Reported Meds Stephanie Schaffer DO Sep 14, 2016 12:49
[2016-09-14 13:18] LABS: AUTOMATED NEUTROPHIL # 6.2 TH/MM3 (1.8-7.7); BASOPHIL # 0.1 TH/MM3 (0-0.2); BASOPHIL % 1.1 % (0.0-2.0); EOSINOPHIL # 0.1 TH/MM3 (0-0.4); EOSINOPHIL % 1.3 % (0.0-4.0); HEMATOCRIT 38.8 % (39.0-51.0); HEMO FLAGS DIFF FINAL; LYMPH % 21.4 % (9.0-44.0); LYMPHOCYTE # 1.9 TH/MM3 (1.0-4.8); MEAN CELL VOLUME 85.4 FL (80.0-100.0); MEAN CORPUSCULAR HEMOGLOBIN 29.8 PG (27.0-34.0); MEAN CORPUSCULAR HGB CONC 34.9 % (32.0-36.0); MONO % 6.5 % (0.0-8.0); NEUT % 69.7 % (16.0-70.0); PLATELET COUNT 274 TH/MM3 (150-450); RED BLOOD COUNT 4.54 MIL/MM3 (4.50-5.90); RED CELL DISTRIBUTION WIDTH 14.1 % (11.6-17.2); WHITE BLOOD COUNT 8.8 TH/MM3 (4.0-11.0)
[2016-09-14 13:24] LABS: APTT (PATIENT) 28.2 SEC (24.3-30.1)
--- NOTE | 2016-09-14 13:27 | RADRPT ---
EXAM DATE/TIME: 09/14/2016 12:57 [facility] COMPARISON: CHEST SINGLE AP, September 10, 2016, 21:46. INDICATIONS : Chest pain. MEDICAL HISTORY : Cerebrovascular attack. Hypertension. SURGICAL HISTORY : None. ENCOUNTER: Initial ACUITY: 1 day PAIN SCORE: 5/10 LOCATION: Bilateral chest FINDINGS: A single view of the chest demonstrates the lungs to be symmetrically aerated without evidence of mas s, infiltrate or effusion. There is hyperaeration of both lung chand. The cardiomediastinal contour s are unremarkable. Osseous structures are intact. CONCLUSION: No acute disease. The previously noted mild airspace disease has resolved. Lavon Jones MD on September 14, 2016 at 13:24 Board Certified Radiologist. This report was verified electronically.
[2016-09-14 13:28] LABS: ANION GAP 9 MEQ/L (5-15); BICARBONATE 26.6 MEQ/L (21.0-32.0); BLOOD UREA NITROGEN 6 MG/DL (7-18); CHLORIDE 100 MEQ/L (98-107); GLOMERULAR FILTRATION RATE 129 ML/MIN (>89); MAGNESIUM 2.3 MG/DL (1.5-2.5); SODIUM (NA) 136 MEQ/L (136-145)
[2016-09-14 13:31] LABS: CREATINE KINASE 237 U/L (39-308)
[2016-09-14 13:47] LABS: CKMB 3.6 NG/ML (0.5-3.6)
[2016-09-14] MEDS ORDERED: HALOPERIDOL LACTATE 5 MG/ML AMP IV PUSH ONE (14:00)
[2016-09-14] MEDS ORDERED: MIDAZOLAM HCL 2 MG/2 ML VIAL IV PUSH ONE (14:00)
[2016-09-14 14:24] LABS: AMPHETAMINE, URINE NEG (NEG); BARBITURATES, URINE NEG (NEG); COCAINE, URINE NEG (NEG)
--- NOTE | 2016-09-14 17:00 | RADRPT ---
EXAM DATE/TIME: 09/14/2016 16:44 [facility] COMPARISON: No previous studies available for comparison. INDICATIONS : Beat head on wall repeatedly. RADIATION DOSE: 36.35 CTDIvol (mGy) MEDICAL HISTORY : Stroke. Hypertension. SURGICAL HISTORY : Appendectomy. ENCOUNTER: Initial ACUITY: 1 day PAIN SCALE: 4/10 LOCATION: Bilateral cranial TECHNIQUE: Multiple contiguous axial images were obtained of the head. Using automated exposure control and adj ustment of the mA and/or kV according to patient size, radiation dose was kept as low as reasonably a chievable to obtain optimal diagnostic quality images. DICOM format image data is available electro nically for review and comparison. FINDINGS: The ventricles, sulci and cisterns are normal in size, shape and position for the patient's age. The re is no acute infarct, acute hemorrhage, mass effect or extra-axial fluid collections. There is opa cification of the right maxillary sinus with thickening of the martin of the right maxillary sinus ind icating chronic sinusitis. There is also mucosal thickening involving the right anterior ethmoid air cells. CONCLUSION: 1. No acute intracranial abnormality. 2. Opacification of the right maxillary sinus with thickening of the martin suggesting chronic right maxillary sinusitis as well as mucosal thickening involving the anterior ethmoid air cells. Ramon Londono MD on September 14, 2016 at 16:52 Board Certified Radiologist. This report was verified electronically.
[2016-09-14 17:39] VITALS: BP 138/76; PULSE 84; RESP 16; O2SAT 97
[2016-09-14 19:23] VITALS: BP 117/73; PULSE 80; RESP 17; O2SAT 97
[2016-09-14] MEDS ORDERED: ONDANSETRON HCL 4 MG/2 ML VIAL IV PUSH ONE (19:30)
[2016-09-14 20:43] VITALS: BP 132/86; PULSE 89; RESP 20; TEMP 98.2; O2SAT 99
[2016-09-14] MEDS ORDERED: PROCHLORPERAZINE INJ 10 MG/2 ML VIAL IM ONE (22:45)
[2016-09-14] MEDS ORDERED: diphenhydrAMINE HCL 50 MG/ML VIAL IM ONE (23:00)
[2016-09-14] MEDS ORDERED: ONDANSETRON HCL 4 MG/2 ML VIAL IM ONE (23:00)
[2016-09-15] MEDS ORDERED: LORazepam 2 MG/ML VIAL IV PUSH PRN ×4 (02:00)
[2016-09-15] MEDS ORDERED: FLUMAZENIL 0.5 MG/5 ML VIAL IV PUSH PRN (02:00)
[2016-09-15] MEDS ORDERED: LORazepam 1 MG TAB PO PRN (02:00)
[2016-09-15] MEDS ORDERED: LORazepam 2 MG TAB PO PRN (02:00)
[2016-09-15 02:08] VITALS: BP 144/84; PULSE 97; RESP 19; TEMP 99.4; O2SAT 96
[2016-09-15 06:10] VITALS: BP 154/94; PULSE 95; RESP 19; TEMP 98.8; O2SAT 96
[2016-09-15 11:39] VITALS: BP 131/94; PULSE 82; RESP 18; O2SAT 96
[2016-09-15] MEDS ORDERED: PANTOPRAZOLE SOD 40 MG DELAYED RELEASE TAB PO SCH (14:23)
[2016-09-15] MEDS ORDERED: ONDANSETRON ODT 4 MG TAB PO PRN (14:30)
--- NOTE | 2016-09-16 08:42 | EKG ---
Date Performed: 09/14/2016 Time Performed: 12:47:27 PTAGE: 51 years EKG: Sinus rhythm MARKED LEFT AXIS DEVIATION MODERATE INTRAVENTRICULAR CONDUCTION DELAY ABNORMAL ECG PREVIOUS TRACING : 09/10/2016 21.36 DOCTOR: Inga Olguin Interpretating Date/Time 09/16/2016 08:40:15
== END 2016-09-15 16:27 ==
LOC: NEDAMB 12:21 → NEPJ 09-15 16:27
DX: F10.10 Alcohol abuse, uncomplicated (principal); F17.200 Nicotine dependence, unspecified, uncomplicated; Y90.8 Blood alcohol level of 240 mg/100 ml or more
CPT/HCPCS: 70450; 71010; 80048; 80307; 82550; 82552; 83690; 83735; 84484; 85025; 85610; 85730; 93005; 96372; 96374; 96375; 99285; J1200; J1630; J2060; J2250; J2405

== ENCOUNTER 2016-10-12 16:45 | Inpatient (IN) | payer SELFPAY ==
[~2016-10-12] VITALS: Ht 185.4 cm; Wt 85.0 kg
[2016-10-12 16:51] VITALS: BP 124/90; PULSE 97; RESP 18; TEMP 98.3; O2SAT 98
[2016-10-12] MEDS ORDERED: ASPIRIN 81 MG CHEW TAB PO ONE (17:15)
[2016-10-12] MEDS ORDERED: SODIUM CHLOR 0.9% 1000 ML INJ 1,000 ML IV ONE (17:15)
[2016-10-12] MEDS ORDERED: SODIUM CHLORIDE 0.9% FLUSH 10 ML FLUSH IVF PRN (17:15)
--- NOTE | 2016-10-12 17:50 | RADRPT ---
EXAM DATE/TIME: 10/12/2016 17:25 [facility] COMPARISON: CHEST SINGLE AP, September 14, 2016, 12:57. INDICATIONS : Chest pain. MEDICAL HISTORY : Cerebrovascular attack. Hypertension. SURGICAL HISTORY : None. ENCOUNTER: Initial ACUITY: 1 day PAIN SCORE: 10/10 LOCATION: Bilateral chest FINDINGS: A single view of the chest demonstrates the lungs to be symmetrically aerated without evidence of mas s, infiltrate or effusion. The cardiomediastinal contours are unremarkable. Osseous structures are intact. CONCLUSION: No acute disease. Joselito Mukherjee MD on October 12, 2016 at 17:48 Board Certified Radiologist. This report was verified electronically.
[2016-10-12 18:00] VITALS: BP 131/89; PULSE 89; RESP 16; O2SAT 98
[2016-10-12] MEDS ORDERED: ONDANSETRON HCL 4 MG/2 ML VIAL IV PUSH ONE (18:00)
--- NOTE | 2016-10-12 18:09 | PD ---
HPI Chief Complaint: Alcohol/Drug Intoxication Time Seen by Provider: 17:04 Travel History International Travel<30 days: No Contact w/Intl Traveler<30days: No Traveled to known affect area: No History of Present Illness HPI Patient is a 51-year-old male, with history of alcoholism, who comes in complaining of chest pain. He says the pain is in the middle of his chest. He also reports some nausea and shortness of breath. He says he was here a few weeks ago for the same thing. He does admit to drinking today. He says last time he had this pain, he just kept Drinking, and he got better. PFSH Past Medical History Depression: Yes Cerebrovascular Accident: Yes (CVA) Hypertension: Yes Pancreatitis: Yes Past Surgical History Appendectomy: Yes Social History Alcohol Use: Yes (4-6 4 locos per day) Tobacco Use: Yes (1 ppd) Substance Use: No Allergies-Medications (Allergen,Severity, Reaction): Coded Allergies: No Known Allergies (Unverified , 10/12/16) Reported Meds & Prescriptions Reported Meds & Active Scripts Active No Active Prescriptions or Reported Medications Review of Systems Except as stated in HPI: all other systems reviewed are Neg General / Constitutional: No: Fever, Chills Eyes: Positive: Blurred Vision HENT: No: Headaches, Lightheadedness Cardiovascular: Positive: Chest Pain or Discomfort Respiratory: Positive: Shortness of Breath Gastrointestinal: Positive: Nausea, Vomiting, Abdominal Pain Genitourinary: No: Dysuria Musculoskeletal: No: Myalgias, Edema Skin: No Rash, No Change in Pigmentation Neurologic: Positive: Dizziness, No: Weakness Physical Exam Narrative GENERAL: Awake and alert, unkept, alcohol on breath. SKIN: Focused skin assessment warm/dry. HEAD: Atraumatic. Normocephalic. EYES: Pupils equal and round. No scleral icterus. ENT: Mucous membranes pink and moist. NECK: Trachea midline. No JVD. CARDIOVASCULAR: Regular rate and rhythm. No murmur appreciated. RESPIRATORY: No accessory muscle use. Clear to auscultation. Breath sounds equal bilaterally. GASTROINTESTINAL: Abdomen soft, nondistended. Diffuse tenderness to palpation, no rebound or guarding. MUSCULOSKELETAL: No obvious deformities. No clubbing. No cyanosis. No edema. NEUROLOGICAL: Awake and alert. No obvious cranial nerve deficits. Motor grossly within normal limits. Normal speech. PSYCHIATRIC: Appropriate mood and affect; insight and judgment normal. Data Data Last Documented VS Vital Signs Date Time Temp Pulse Resp B/P Pulse Ox O2 Delivery O2 Flow Rate FiO2 10/12/16 18:24 98 Room Air 10/12/16 18:22 90 20 138/90 131/89 10/12/16 16:51 98.3 Orders Electrocardiogram (10/12/16 17:14) Complete Blood Count With Diff (10/12/16 17:14) Comprehensive Metabolic Panel (10/12/16 17:14) Prothrombin Time / Inr (Pt) (10/12/16 17:14) Act Partial Throm Time (Ptt) (10/12/16 17:14) Troponin I (10/12/16 17:14) Lipase (10/12/16 17:14) Chest, Single Ap (10/12/16 17:14) Ecg Monitoring (10/12/16 17:14) Bilateral Bp Monitoring (10/12/16 17:14) Iv Access Insert/Monitor (10/12/16 17:14) Oximetry (10/12/16 17:14) Oxygen Administration (10/12/16 17:14) Aspirin Chew (Aspirin Chew) (10/12/16 17:15) Sodium Chloride 0.9% Flush (Ns Flush) (10/12/16 17:15) Alcohol (Ethanol) (10/12/16 17:14) Sodium Chlor 0.9% 1000 Ml Inj (Ns 1000 M (10/12/16 17:15) Ondansetron Inj (Zofran Inj) (10/12/16 18:00) Admit Order (Ed Use Only) (10/12/16 20:41) Labs Laboratory Tests Test 10/12/16 18:05 White Blood Count 8.9 TH/MM3 Red Blood Count 4.71 MIL/MM3 Hemoglobin 14.7 GM/DL Hematocrit 42.1 % Mean Corpuscular Volume 89.4 FL Mean Corpuscular Hemoglobin 31.1 PG Mean Corpuscular Hemoglobin 34.8 % Concent Red Cell Distribution Width 15.8 % Platelet Count 209 TH/MM3 Mean Platelet Volume 7.1 FL Neutrophils (%) (Auto) 64.3 % Lymphocytes (%) (Auto) 26.4 % Monocytes (%) (Auto) 4.8 % Eosinophils (%) (Auto) 3.0 % Basophils (%) (Auto) 1.5 % Neutrophils # (Auto) 5.8 TH/MM3 Lymphocytes # (Auto) 2.4 TH/MM3 Monocytes # (Auto) 0.4 TH/MM3 Eosinophils # (Auto) 0.3 TH/MM3 Basophils # (Auto) 0.1 TH/MM3 CBC Comment DIFF FINAL Differential Comment Prothrombin Time 10.8 SEC Prothromb Time International 1.0 RATIO Ratio Activated Partial 29.0 SEC Thromboplast Time Sodium Level 137 MEQ/L Potassium Level 3.4 MEQ/L Chloride Level 102 MEQ/L Carbon Dioxide Level 27.6 MEQ/L Anion Gap 7 MEQ/L Blood Urea Nitrogen 5 MG/DL Creatinine 0.70 MG/DL Estimat Glomerular Filtration 118 ML/MIN Rate Random Glucose 92 MG/DL Calcium Level 8.0 MG/DL Total Bilirubin 0.5 MG/DL Aspartate Amino Transf 41 U/L (AST/SGOT) Alanine Aminotransferase 25 U/L (ALT/SGPT) Alkaline Phosphatase 100 U/L Troponin I LESS THAN 0.02 NG/ML Total Protein 7.2 GM/DL Albumin 3.3 GM/DL Lipase 315 U/L Ethyl Alcohol Level 351 MG/DL MDM Medical Decision Making Medical Screen Exam Complete: Yes Emergency Medical Condition: Yes Medical Record Reviewed: Yes Interpretation(s) ECG shows sinus rhythm at 90, no ST elevation or depression, normal intervals Differential Diagnosis Intoxication versus ACS versus pancreatitis Narrative Course Patient is a 51-year-old male, currently intoxicated, who comes in complaining of chest pain. IV established, labs sent. Patient connected to the track repairer helper. Patient given aspirin and Zofran. Given IV fluids. Signed out to to follow up testing and disposition the patient. Scripts No Active Prescriptions or Reported Meds Condition: Chloe Chang MD Oct 12, 2016 18:09
[2016-10-12 18:22] VITALS: BP_SYST 131; BP_SYST 138; BP_DIAS 89; BP_DIAS 90; PULSE 90; RESP 20; O2SAT 98
[2016-10-12 18:24] VITALS: O2SAT 98
[2016-10-12 18:37] LABS: AUTOMATED NEUTROPHIL # 5.8 TH/MM3 (1.8-7.7); BASOPHIL # 0.1 TH/MM3 (0-0.2); BASOPHIL % 1.5 % (0.0-2.0); EOSINOPHIL # 0.3 TH/MM3 (0-0.4); HEMATOCRIT 42.1 % (39.0-51.0); HEMO FLAGS DIFF FINAL; LYMPH % 26.4 % (9.0-44.0); LYMPHOCYTE # 2.4 TH/MM3 (1.0-4.8); MEAN CELL VOLUME 89.4 FL (80.0-100.0); MEAN CORPUSCULAR HEMOGLOBIN 31.1 PG (27.0-34.0); MEAN CORPUSCULAR HGB CONC 34.8 % (32.0-36.0); MONO % 4.8 % (0.0-8.0); NEUT % 64.3 % (16.0-70.0); PLATELET COUNT 209 TH/MM3 (150-450); RED BLOOD COUNT 4.71 MIL/MM3 (4.50-5.90); RED CELL DISTRIBUTION WIDTH 15.8 % (11.6-17.2); WHITE BLOOD COUNT 8.9 TH/MM3 (4.0-11.0)
[2016-10-12 18:47] LABS: PROTHROMBIN TIME - PATIENT 10.8 SEC (9.8-11.6)
[2016-10-12 18:59] LABS: ANION GAP 7 MEQ/L (5-15); AST (GOT) 41 U/L (15-37); BICARBONATE 27.6 MEQ/L (21.0-32.0); BLOOD UREA NITROGEN 5 MG/DL (7-18); CHLORIDE 102 MEQ/L (98-107); GLOMERULAR FILTRATION RATE 118 ML/MIN (>89); POTASSIUM 3.4 MEQ/L (3.5-5.1); SODIUM (NA) 137 MEQ/L (136-145)
[2016-10-12 19:00] LABS: ALT (GPT) 25 U/L (12-78)
--- NOTE | 2016-10-12 19:03 | PD ---
Data Data Last Documented VS Vital Signs Date Time Temp Pulse Resp B/P Pulse Ox O2 Delivery O2 Flow Rate FiO2 10/12/16 18:24 98 Room Air 10/12/16 18:22 90 20 138/90 131/89 10/12/16 16:51 98.3 Orders Electrocardiogram (10/12/16 17:14) Complete Blood Count With Diff (10/12/16 17:14) Comprehensive Metabolic Panel (10/12/16 17:14) Prothrombin Time / Inr (Pt) (10/12/16 17:14) Act Partial Throm Time (Ptt) (10/12/16 17:14) Troponin I (10/12/16 17:14) Lipase (10/12/16 17:14) Chest, Single Ap (10/12/16 17:14) Ecg Monitoring (10/12/16 17:14) Bilateral Bp Monitoring (10/12/16 17:14) Iv Access Insert/Monitor (10/12/16 17:14) Oximetry (10/12/16 17:14) Oxygen Administration (10/12/16 17:14) Aspirin Chew (Aspirin Chew) (10/12/16 17:15) Sodium Chloride 0.9% Flush (Ns Flush) (10/12/16 17:15) Alcohol (Ethanol) (10/12/16 17:14) Sodium Chlor 0.9% 1000 Ml Inj (Ns 1000 M (10/12/16 17:15) Ondansetron Inj (Zofran Inj) (10/12/16 18:00) Admit Order (Ed Use Only) (10/12/16 20:41) Labs Laboratory Tests Test 10/12/16 18:05 White Blood Count 8.9 TH/MM3 Red Blood Count 4.71 MIL/MM3 Hemoglobin 14.7 GM/DL Hematocrit 42.1 % Mean Corpuscular Volume 89.4 FL Mean Corpuscular Hemoglobin 31.1 PG Mean Corpuscular Hemoglobin 34.8 % Concent Red Cell Distribution Width 15.8 % Platelet Count 209 TH/MM3 Mean Platelet Volume 7.1 FL Neutrophils (%) (Auto) 64.3 % Lymphocytes (%) (Auto) 26.4 % Monocytes (%) (Auto) 4.8 % Eosinophils (%) (Auto) 3.0 % Basophils (%) (Auto) 1.5 % Neutrophils # (Auto) 5.8 TH/MM3 Lymphocytes # (Auto) 2.4 TH/MM3 Monocytes # (Auto) 0.4 TH/MM3 Eosinophils # (Auto) 0.3 TH/MM3 Basophils # (Auto) 0.1 TH/MM3 CBC Comment DIFF FINAL Differential Comment Prothrombin Time 10.8 SEC Prothromb Time International 1.0 RATIO Ratio Activated Partial 29.0 SEC Thromboplast Time Sodium Level 137 MEQ/L Potassium Level 3.4 MEQ/L Chloride Level 102 MEQ/L Carbon Dioxide Level 27.6 MEQ/L Anion Gap 7 MEQ/L Blood Urea Nitrogen 5 MG/DL Creatinine 0.70 MG/DL Estimat Glomerular Filtration 118 ML/MIN Rate Random Glucose 92 MG/DL Calcium Level 8.0 MG/DL Total Bilirubin 0.5 MG/DL Aspartate Amino Transf 41 U/L (AST/SGOT) Alanine Aminotransferase 25 U/L (ALT/SGPT) Alkaline Phosphatase 100 U/L Troponin I LESS THAN 0.02 NG/ML Total Protein 7.2 GM/DL Albumin 3.3 GM/DL Lipase 315 U/L Ethyl Alcohol Level 351 MG/DL [facility] Medical Record Reviewed: Yes Supervised Visit with GLADYS: No Interpretation(s) Last Impressions Chest X-Ray 10/12/16 7256 Signed Impressions: Service Date/Time: Wednesday, October 12, 2016 17:25 - CONCLUSION: No acute disease. Joselito Mukherjee MD Narrative Course During the course of the patients emergency department visit, the patients history, examination, and differential diagnosis were reviewed with the patient. The patient had IV access obtained and blood work sent for analysis. 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 The patient was initially seen by Dr. Cabrera. Please see her complete history and physical. The patient's case was checked out to me at the conclusion of her shift. The patient was initially provided aspirin 324 mg by mouth 1, normal saline 1 L IV fluid bolus, Zofran 4 mg IV. The patients laboratory studies were reviewed and remarkable for a CBC that is within normal limits. PT PTT within normal limits. CMP is remarkable for potassium of 3.4 which was supplemented orally, BUN 5, calcium 8.0, AST 41, ALT 25, troponin I less than 0.02, lipase 315, alcohol level CCCLI. Radiology studies were reviewed and remarkable for a chest x-ray that shows no acute disease. Given the patient's chest pain, the patient will be admitted to the chest pain center for rule out serial cardiac enzyme protocol. From reviewing the record I do not see any evidence of the patient previously having a stress test done at this facility. The patients results were discussed with the patient, including the plan of care. I explained that further testing and/ or monitoring is indicated based on the patients history, examination, and/ or laboratory findings. Therefore, I recommended admission for additional evaluation. The patient expressed understanding and was agreeable with this plan. The patient was admitted to the hospital in stable condition and sent to a bed under the care of the chest pain center. Diagnosis Primary Impression: Chest pain, rule out acute myocardial infarction Additional Impression: Alcohol abuse Admitting Information Admitting Physician Requests: Observation Scripts No Active Prescriptions or Reported Meds Kirstie Tang MD Oct 12, 2016 19:03
[2016-10-12 19:04] LABS: ALKALINE PHOSPHATASE 100 U/L (45-117); TOTAL BILIRUBIN ADULT 0.5 MG/DL (0.2-1.0)
[2016-10-12] MEDS ORDERED: POTASSIUM CHLORIDE 20 MEQ CONTROLLED RELEASE TAB PO ONE (21:00)
[2016-10-12] MEDS ORDERED: SODIUM CHLORIDE 0.9% FLUSH 10 ML FLUSH IV FLUSH SCH (21:00)
[2016-10-12] MEDS ORDERED: ONDANSETRON HCL 4 MG/2 ML VIAL IV PRN (21:00)
[2016-10-12] MEDS ORDERED: ACETAMINOPHEN 500 MG CPLT PO PRN (21:00)
[2016-10-12] MEDS ORDERED: SODIUM CHLORIDE 0.9% FLUSH 10 ML FLUSH IV FLUSH PRN (21:00)
[2016-10-12 21:19] VITALS: O2SAT 98
--- NOTE | 2016-10-12 21:32 | EKG ---
Date Performed: 10/12/2016 Time Performed: 17:18:41 PTAGE: 51 years EKG: Sinus rhythm LEFT AXIS DEVIATION ABNORMAL ECG PREVIOUS TRACING : 09/14/2016 12.47 No significant change from previous tracing noted. DOCTOR: Emmanuel Bermeo Interpretating Date/Time 10/12/2016 21:31:18
[2016-10-12 22:53] LABS: CREATINE KINASE 303 U/L (39-308)
[2016-10-12 23:08] LABS: CKMB 1.8 NG/ML (0.5-3.6)
--- NOTE | 2016-10-13 08:46 | EKG ---
Date Performed: 10/12/2016 Time Performed: 22:28:08 PTAGE: 51 years EKG: Sinus rhythm LEFT AXIS DEVIATION ABNORMAL ECG NO PREVIOUS TRACING DOCTOR: Emmanuel Bermeo Interpretating Date/Time 10/13/2016 08:44:39
== END 2016-10-12 22:30 | disposition left against medical advice (07) | DRG 313 ==
LOC: NEPE 16:45 → NEDA 20:43
DX: R07.9 Chest pain, unspecified (principal); I10 Essential (primary) hypertension; F10.229 Alcohol dependence with intoxication, unspecified; F32.9 Major depressive disorder, single episode, unspecified; Z86.73 Personal history of transient ischemic attack (TIA), and cerebral infarction without residual deficits; F17.210 Nicotine dependence, cigarettes, uncomplicated; Y90.8 Blood alcohol level of 240 mg/100 ml or more
CPT/HCPCS: 71010; 80053; 80307; 82550; 82552; 83690; 84484; 85025; 85610; 85730; 93005; 96361; 96374; J2405; J7030

== ENCOUNTER 2016-10-15 22:38 | Inpatient (IN) | payer SELFPAY ==
[~2016-10-15] VITALS: Ht 182.9 cm; Wt 74.9 kg
[2016-10-15 22:45] VITALS: BP 98/63; PULSE 99; RESP 20; TEMP 98.3; O2SAT 97
[2016-10-15] MEDS ORDERED: SODIUM CHLOR 0.9% 1000 ML INJ 1,000 ML IV SCH (22:49)
[2016-10-15] MEDS ORDERED: MAPA500C PO (22:49)
[2016-10-15 22:51] VITALS: O2SAT 94
[2016-10-15] MEDS ORDERED: SODIUM CHLORIDE 0.9% FLUSH 10 ML FLUSH IVF PRN (23:00)
[2016-10-15] MEDS ORDERED: PANTOPRAZOLE SODIUM 40 MG VIAL IVP ONE (23:00)
--- NOTE | 2016-10-15 23:06 | PD ---
HPI Chief Complaint: Abdominal Pain Time Seen by Provider: 22:48 Travel History International Travel<30 days: No Contact w/Intl Traveler<30days: No Traveled to known affect area: No History of Present Illness HPI The patient is a 51-year-old male who presents emergency department for hematemesis and dark colored stools. The patient has a history of alcohol abuse, states he developed epigastric abdominal pain earlier this morning. He then developed several episodes of hematemesis which he describes as dark to bright colored blood without any visible clots. He also has had several episodes of dark-colored stool without any visible blood. The abdominal pain is epigastric, burning, radiates to left upper chest, and is associated with nausea. The patient denies any known history of gastritis, peptic ulcer disease , or esophageal varices. He does drink on a daily basis, however, is unable to quantify the amount of alcohol he drinks. The patient's symptoms are moderate, there are no current alleviating or exacerbating factors. He does complain of mild orthostatic lightheadedness and dizziness. He denies any acute chest pain or shortness of breath. PFSH Past Medical History Depression: Yes Cerebrovascular Accident: Yes (CVA) Hypertension: Yes Pancreatitis: Yes Past Surgical History Appendectomy: Yes Social History Alcohol Use: Yes (4-6 4 locos per day) Tobacco Use: Yes (1 ppd) Substance Use: No Allergies-Medications (Allergen,Severity, Reaction): Coded Allergies: No Known Allergies (Unverified , 10/12/16) Reported Meds & Prescriptions Reported Meds & Active Scripts Active Reported Mapap (Acetaminophen) 500 Mg Cap 500 Mg PO Q4-6H PRN Review of Systems Except as stated in HPI: all other systems reviewed are Neg General / Constitutional: No: Fever HENT: Positive: Lightheadedness Cardiovascular: No: Chest Pain or Discomfort, Dyspnea on exertion Respiratory: No: Shortness of Breath Gastrointestinal: Positive: Nausea, Vomiting, Abdominal Pain, Hematemesis, Changes in Bowel Habits Neurologic: No: Dizziness Physical Exam Narrative GENERAL: Awake, alert, pleasant 51-year-old male who appears his stated age and is in no acute respiratory distress. SKIN: Focused skin assessment warm/dry. HEAD: Atraumatic. Normocephalic. EYES: Pupils equal and round. No scleral icterus. No injection or drainage. ENT: No nasal bleeding or discharge. No visible blood in the oropharynx. NECK: Trachea midline. No JVD. CARDIOVASCULAR: Regular rate and rhythm. No murmur appreciated. RESPIRATORY: No accessory muscle use. Clear to auscultation. Breath sounds equal bilaterally. GASTROINTESTINAL: Abdomen soft, mild epigastric tenderness. Rectal: Black colored stool that is guaiac positive. MUSCULOSKELETAL: No obvious deformities. No clubbing. No cyanosis. No edema. NEUROLOGICAL: Awake and alert. No obvious cranial nerve deficits. Motor grossly within normal limits. Normal speech. PSYCHIATRIC: Appropriate mood and affect; insight and judgment normal. Data Data Last Documented VS Vital Signs Date Time Temp Pulse Resp B/P Pulse Ox O2 Delivery O2 Flow Rate FiO2 10/15/16 23:51 92 18 107/70 94 18 98/65 96 18 101/67 10/15/16 22:51 94 Room Air 10/15/16 22:45 98.3 Orders Complete Blood Count With Diff (10/15/16 22:49) Comprehensive Metabolic Panel (10/15/16 22:49) Lipase (10/15/16 22:49) Prothrombin Time / Inr (Pt) (10/15/16 22:49) Act Partial Throm Time (Ptt) (10/15/16 22:49) Alcohol (Ethanol) (10/15/16 22:49) Type And Screen (10/15/16 22:49) Ecg Monitoring (10/15/16 22:49) Iv Access Insert/Monitor (10/15/16 22:49) Orthostatic Vital Signs (10/15/16 22:49) Oximetry (10/15/16 22:49) Pantoprazole Inj (Protonix Inj) (10/15/16 23:00) Sodium Chlor 0.9% 1000 Ml Inj (Ns 1000 M (10/15/16 22:49) Sodium Chloride 0.9% Flush (Ns Flush) (10/15/16 23:00) Electrocardiogram (10/15/16 ) Troponin I (10/15/16 22:49) Creatine Kinase (Cpk) (10/15/16 22:49) Morphine Inj (Morphine Inj) (10/15/16 23:45) Ondansetron Inj (Zofran Inj) (10/15/16 23:45) Potassium Chlor 20 Meq Premix (Kcl 20 Me (10/16/16 00:15) Admit To Inpatient (10/16/16 ) Vital Signs (Adult) Q4H (10/16/16 00:37) Activity Oob With Assistance (10/16/16 00:37) Warp Knitter Helper / Telemetry .CONTINUOUS (10/16/16 00:37) Diet Npo (10/16/16 Breakfast) Sodium Chloride 0.9% Flush (Ns Flush) (10/16/16 00:45) Sodium Chloride 0.9% Flush (Ns Flush) (10/16/16 09:00) Comprehensive Metabolic Panel (10/17/16 06:00) Complete Blood Count With Diff (10/17/16 06:00) Lipase (10/17/16 06:00) Case Management Consult (10/16/16 00:37) Naloxone Inj (Narcan Inj) (10/16/16 00:45) Inpatient Certification (10/16/16 ) Pantoprazole Inj (Protonix Inj) (10/16/16 01:45) Admit Order (Ed Use Only) (10/16/16 00:39) Acetaminophen (Tylenol) (10/16/16 00:45) Labs Laboratory Tests Test 10/15/16 23:20 White Blood Count 7.4 TH/MM3 Red Blood Count 4.41 MIL/MM3 Hemoglobin 13.4 GM/DL Hematocrit 39.1 % Mean Corpuscular Volume 88.5 FL Mean Corpuscular Hemoglobin 30.5 PG Mean Corpuscular Hemoglobin 34.4 % Concent Red Cell Distribution Width 15.3 % Platelet Count 227 TH/MM3 Mean Platelet Volume 7.1 FL Neutrophils (%) (Auto) 59.0 % Lymphocytes (%) (Auto) 30.3 % Monocytes (%) (Auto) 6.8 % Eosinophils (%) (Auto) 2.9 % Basophils (%) (Auto) 1.0 % Neutrophils # (Auto) 4.3 TH/MM3 Lymphocytes # (Auto) 2.2 TH/MM3 Monocytes # (Auto) 0.5 TH/MM3 Eosinophils # (Auto) 0.2 TH/MM3 Basophils # (Auto) 0.1 TH/MM3 CBC Comment DIFF FINAL Differential Comment Prothrombin Time 10.8 SEC Prothromb Time International 1.0 RATIO Ratio Activated Partial 28.7 SEC Thromboplast Time Sodium Level 136 MEQ/L Potassium Level 3.2 MEQ/L Chloride Level 97 MEQ/L Carbon Dioxide Level 29.2 MEQ/L Anion Gap 10 MEQ/L Blood Urea Nitrogen 8 MG/DL Creatinine 0.72 MG/DL Estimat Glomerular Filtration 115 ML/MIN Rate Random Glucose 93 MG/DL Calcium Level 7.7 MG/DL Total Bilirubin 0.5 MG/DL Aspartate Amino Transf 51 U/L (AST/SGOT) Alanine Aminotransferase 29 U/L (ALT/SGPT) Alkaline Phosphatase 92 U/L Total Creatine Kinase 164 U/L Troponin I LESS THAN 0.02 NG/ML Total Protein 7.0 GM/DL Albumin 3.3 GM/DL Lipase 400 U/L Ethyl Alcohol Level 314 MG/DL Blood Type A POSITIVE Antibody Screen NEGATIVE Blood Bank Comment [facility] Medical Decision Making Medical Screen Exam Complete: Yes Emergency Medical Condition: Yes Medical Record Reviewed: Yes Interpretation(s) EKG reveals normal sinus rhythm with a rate in 98. Laboratory Tests Test 10/15/16 23:20 White Blood Count 7.4 TH/MM3 Red Blood Count 4.41 MIL/MM3 Hemoglobin 13.4 GM/DL Hematocrit 39.1 % Mean Corpuscular Volume 88.5 FL Mean Corpuscular Hemoglobin 30.5 PG Mean Corpuscular Hemoglobin 34.4 % Concent Red Cell Distribution Width 15.3 % Platelet Count 227 TH/MM3 Mean Platelet Volume 7.1 FL Neutrophils (%) (Auto) 59.0 % Lymphocytes (%) (Auto) 30.3 % Monocytes (%) (Auto) 6.8 % Eosinophils (%) (Auto) 2.9 % Basophils (%) (Auto) 1.0 % Neutrophils # (Auto) 4.3 TH/MM3 Lymphocytes # (Auto) 2.2 TH/MM3 Monocytes # (Auto) 0.5 TH/MM3 Eosinophils # (Auto) 0.2 TH/MM3 Basophils # (Auto) 0.1 TH/MM3 CBC Comment DIFF FINAL Differential Comment Prothrombin Time 10.8 SEC Prothromb Time International 1.0 RATIO Ratio Activated Partial 28.7 SEC Thromboplast Time Sodium Level 136 MEQ/L Potassium Level 3.2 MEQ/L Chloride Level 97 MEQ/L Carbon Dioxide Level 29.2 MEQ/L Anion Gap 10 MEQ/L Blood Urea Nitrogen 8 MG/DL Creatinine 0.72 MG/DL Estimat Glomerular Filtration 115 ML/MIN Rate Random Glucose 93 MG/DL Calcium Level 7.7 MG/DL Total Bilirubin 0.5 MG/DL Aspartate Amino Transf 51 U/L (AST/SGOT) Alanine Aminotransferase 29 U/L (ALT/SGPT) Alkaline Phosphatase 92 U/L Total Creatine Kinase 164 U/L Troponin I LESS THAN 0.02 NG/ML Total Protein 7.0 GM/DL Albumin 3.3 GM/DL Lipase 400 U/L Ethyl Alcohol Level 314 MG/DL Blood Type A POSITIVE Antibody Screen NEGATIVE Blood Bank Comment Differential Diagnosis Differential diagnosis includes gastritis, peptic ulcer disease, esophageal varices, Ashley-Chowdhury tear, anemia, alcohol abuse, pancreatitis. Narrative Course IV was established, labs are drawn and sent, and the patient was placed on cardiac telemetry monitoring and continuous pulse oximetry monitoring. EKG was ordered and interpreted. The patient was provided Protonix 40 mg intravenously and IV fluids. Type and screen was sent to lab. Hemoglobin is greater than 13 , lipase is elevated at 400, alcohol is elevated at 314. EMS does state the patient had blood around the mouth secondary to vomiting blood, the patient was guaiac positive. The patient may have esophageal varices versus erosive gastritis versus peptic ulcer disease. The patient will need 23 hour observation for serial hemoglobin, if he does drop significantly continues to bleed he may need GI evaluation for endoscopy. The patient did receive Protonix. The on-call medical service was paged for 23 hour observation. [facility] Point of Care Internal Pos. & Neg. Controls: Passed Fecal Specimen Occult Blood: Positive Physician Communication Physician Communication The on-call medical service was paged for admission. I discussed the patient with Dr. Sethi who agrees with admission. Diagnosis Primary Impression: Hematemesis Qualified Code: K92.0 - Hematemesis with nausea Additional Impressions: GI bleed Qualified Code: K92.1 - Gastrointestinal hemorrhage with melena Alcohol intoxication in active alcoholic Qualified Code: F10.120 - Alcohol intoxication in active alcoholic, uncomplicated Pancreatitis Qualified Code: K85.20 - Alcohol-induced acute pancreatitis, unspecified complication status Admitting Information Admitting Physician Requests: Admit Condition: Stable Wilmer Smith MD Oct 15, 2016 23:06
[2016-10-15 23:40] LABS: AUTOMATED NEUTROPHIL # 4.3 TH/MM3 (1.8-7.7); BASOPHIL # 0.1 TH/MM3 (0-0.2); EOSINOPHIL # 0.2 TH/MM3 (0-0.4); EOSINOPHIL % 2.9 % (0.0-4.0); HEMATOCRIT 39.1 % (39.0-51.0); HEMO FLAGS DIFF FINAL; LYMPH % 30.3 % (9.0-44.0); LYMPHOCYTE # 2.2 TH/MM3 (1.0-4.8); MEAN CELL VOLUME 88.5 FL (80.0-100.0); MEAN CORPUSCULAR HEMOGLOBIN 30.5 PG (27.0-34.0); MEAN CORPUSCULAR HGB CONC 34.4 % (32.0-36.0); MONO % 6.8 % (0.0-8.0); PLATELET COUNT 227 TH/MM3 (150-450); RED BLOOD COUNT 4.41 MIL/MM3 (4.50-5.90); RED CELL DISTRIBUTION WIDTH 15.3 % (11.6-17.2); WHITE BLOOD COUNT 7.4 TH/MM3 (4.0-11.0)
[2016-10-15] MEDS ORDERED: MORPHINE SULFATE 4 MG/ML INJ IV PUSH ONE (23:45)
[2016-10-15] MEDS ORDERED: ONDANSETRON HCL 4 MG/2 ML VIAL IV PUSH ONE (23:45)
[2016-10-15 23:46] LABS: APTT (PATIENT) 28.7 SEC (24.3-30.1); PROTHROMBIN TIME - PATIENT 10.8 SEC (9.8-11.6)
[2016-10-15 23:51] VITALS: BP_SYST 101; BP_SYST 107; BP_SYST 98; BP_DIAS 65; BP_DIAS 67; BP_DIAS 70; RESP 18
[2016-10-15 23:53] LABS: ALT (GPT) 29 U/L (12-78); ANION GAP 10 MEQ/L (5-15); AST (GOT) 51 U/L (15-37); BICARBONATE 29.2 MEQ/L (21.0-32.0); BLOOD UREA NITROGEN 8 MG/DL (7-18); CHLORIDE 97 MEQ/L (98-107); GLOMERULAR FILTRATION RATE 115 ML/MIN (>89); POTASSIUM 3.2 MEQ/L (3.5-5.1); SODIUM (NA) 136 MEQ/L (136-145)
[2016-10-15 23:57] LABS: ALKALINE PHOSPHATASE 92 U/L (45-117); CREATINE KINASE 164 U/L (39-308); TOTAL BILIRUBIN ADULT 0.5 MG/DL (0.2-1.0)
[2016-10-16] VITALS (11 sets, daily range): BP systolic 94–131; BP diastolic 52–87; PULSE 80–87; RESP 18–20; TEMP 97.6–98.4; O2SAT 96–99
[2016-10-16] MEDS ORDERED: POTASSIUM CHLOR 20 MEQ PREMIX 100 ML IV ONE (00:15)
[2016-10-16] MEDS ORDERED: NALOXONE HCL 0.4 MG/ML AMP IV PRN (00:45)
[2016-10-16] MEDS ORDERED: ACETAMINOPHEN 325 MG TAB PO ONE (00:45)
[2016-10-16] MEDS: PANTOPRAZOLE INJ 80 MG in SODIUM CHLORIDE 0.9% INJ 100 ML IV SCH ×2 (01:25→13:07)
[2016-10-16] MEDS ORDERED: MORPHINE SULFATE 4 MG/ML INJ IV PUSH ONE (03:00)
--- NOTE | 2016-10-16 03:07 | HHI.HP ---
[facility] Primary Care Physician Admission Diagnosis upper GI bleed, hematemesis, pancreatitis, alcohol intoxication Diagnoses: (1) GI bleed (2) Pancreatitis (3) Alcohol intoxication in active alcoholic Chief Complaint: Vomiting blood and blood in stools Travel History International Travel<30 Days: No Contact w/Intl Traveler <30 Da: No Traveled to Known Affected Are: No History of Present Illness Written by Eufemia Zambrano, acting as scribe for Dr. Sethi on 10/16/16 at 03:07. Vomiting black red clots and bright red blood Blood in stools - black - 3 - 4 episodes of black stools Duration of symptoms - 1 day Diaphoresis Dizziness Chest pain Vomits in the morning before getting alcohol drink Frontal head pain Chest pain - lower left Epigastric pain Patient does not report any history of liver disease but states he has a "bad pancreas" Denies fever, Review of Systems Except as stated in HPI: all other systems reviewed are Neg Past Family Social History Past Medical History Hypertension TIA CVA COPD Numbness in legs Seizure related to alcohol withdrawal Carpal tunnel syndrome Denies diabetes mellitus Past Surgical History Appendectomy Tumor removed from right leg Stabbed in bilateral forearms with repair Back surgery . Reported Medications Acetaminophen Aspirin at times . Allergies: Coded Allergies: No Known Allergies (Unverified , 10/12/16) Active Ordered Medications Current Medications Pantoprazole Sodium 40 mg 40 mg ONCE ONCE IVP Last administered on 10/15/16 23:35; Start 10/15/16 at 23:00; Stop 10/15/16 at 23:01; Status DC Sodium Chloride (NS 1000 ml Inj) 1,000 ml @ 125 mls/hr Q8H IV Last administered on 10/15/16 23:35; Start 10/15/16 at 22:49; Stop 10/16/16 at 06:48 Sodium Chloride (NS Flush) 2 ml UNSCH PRN IVF FLUSH AFTER USING IV ACCESS; Start 10/15/16 at 23:00; Stop 10/16/16 at 00:43; Status DC Morphine Sulfate (Morphine Inj) 4 mg ONCE ONCE IV PUSH Last administered on 23:51; Start 10/15/16 at 23:45; Stop 10/15/16 at 23:46; Status DC Ondansetron HCl 4 mg 4 mg ONCE ONCE IV PUSH Last administered on 10/15/16 23: 51; Start 10/15/16 at 23:45; Stop 10/15/16 at 23:46; Status DC Potassium Chloride (KCl 20 Meq Premix Inj) 100 ml @ 50 mls/hr BOLUS ONCE IV Last administered on 10/16/16 00:39; Start 10/16/16 at 00:15; Stop 10/16/16 at 02:14; Status DC Sodium Chloride (NS Flush) 2 ml UNSCH PRN IV FLUSH FLUSH AFTER USING IV ACCESS ; Start 10/16/16 at 00:45 Sodium Chloride (NS Flush) 2 ml BID IV FLUSH ; Start 10/16/16 at 09:00 Naloxone HCl 0.4 mg 0.4 mg UNSCH PRN IV SEE LABEL COMMENTS; Start 10/16/16 at 00:45 Pantoprazole Sodium/Sodium Chloride (Protonix Inj/NS Inj) 100 ml @ 10 mls/hr Q10H IV Last administered on 10/16/16 01:25; Start 10/16/16 at 01:45 Acetaminophen (Tylenol) 650 mg ONCE ONCE PO Last administered on 10/16/16 01: 24; Start 10/16/16 at 00:45; Stop 10/16/16 at 00:46; Status DC Morphine Sulfate (Morphine Inj) 2 mg ONCE ONCE IV PUSH ; Start 10/16/16 at 03: 00; Stop 10/16/16 at 03:01 . Family History Mother from breathing problem . Social History Tobacco: reports smoking - 1 PPD x 10 years Alcohol: daily drinker Illicit Drugs: occasional marijuana - denies IVDA . Physical Exam Vital Signs Vital Signs Date Time Temp Pulse Resp B/P Pulse Ox O2 Delivery O2 Flow Rate FiO2 10/16/16 01:46 86 18 102/70 99 Nasal Cannula 2 10/15/16 23:51 92 18 107/70 94 18 98/65 96 18 101/67 10/15/16 22:51 94 Room Air 10/15/16 22:45 98.3 99 20 98/63 97 Physical Exam GENERAL: This is a chronically ill-appearing male patient who appears older than his stated age, in no apparent distress. SKIN: No rashes, ecchymoses or lesions. Cool and dry. HEAD: Atraumatic. Normocephalic. EYES: No scleral icterus. No injection or drainage. ENT: Nose without bleeding, purulent drainage. NECK: Trachea midline. No JVD or lymphadenopathy. CARDIOVASCULAR: Regular rate and rhythm without murmurs, gallops, or rubs. RESPIRATORY: Clear to auscultation. Breath sounds equal bilaterally. No wheezes , rales, or rhonchi. GASTROINTESTINAL: Abdomen soft, non-tender, nondistended. No guarding. MUSCULOSKELETAL: Extremities without clubbing, cyanosis, or edema. No calf tenderness. NEUROLOGICAL: Awake and alert. Motor and sensory grossly within normal limits. Normal speech. . Laboratory Laboratory Tests Test 10/15/16 23:20 White Blood Count 7.4 Red Blood Count 4.41 Hemoglobin 13.4 Hematocrit 39.1 Mean Corpuscular Volume 88.5 Mean Corpuscular Hemoglobin 30.5 Mean Corpuscular Hemoglobin 34.4 Concent Red Cell Distribution Width 15.3 Platelet Count 227 Mean Platelet Volume 7.1 Neutrophils (%) (Auto) 59.0 Lymphocytes (%) (Auto) 30.3 Monocytes (%) (Auto) 6.8 Eosinophils (%) (Auto) 2.9 Basophils (%) (Auto) 1.0 Neutrophils # (Auto) 4.3 Lymphocytes # (Auto) 2.2 Monocytes # (Auto) 0.5 Eosinophils # (Auto) 0.2 Basophils # (Auto) 0.1 CBC Comment DIFF FINAL Differential Comment Prothrombin Time 10.8 Prothromb Time International 1.0 Ratio Activated Partial 28.7 Thromboplast Time Sodium Level 136 Potassium Level 3.2 Chloride Level 97 Carbon Dioxide Level 29.2 Anion Gap 10 Blood Urea Nitrogen 8 Creatinine 0.72 Estimat Glomerular Filtration 115 Rate Random Glucose 93 Calcium Level 7.7 Total Bilirubin 0.5 Aspartate Amino Transf 51 (AST/SGOT) Alanine Aminotransferase 29 (ALT/SGPT) Alkaline Phosphatase 92 Total Creatine Kinase 164 Troponin I LESS THAN 0.02 Total Protein 7.0 Albumin 3.3 Lipase 400 Ethyl Alcohol Level 314 Blood Type A POSITIVE Antibody Screen NEGATIVE Blood Bank Comment Result Diagram: 10/15/16 33410/[id number]/162319 Assessment and Plan Problem List: (1) GI bleed ICD Code: K92.2 Status: Acute (2) Pancreatitis ICD Code: K85.90 Status: Acute (3) Alcohol intoxication in active alcoholic ICD Code: F10.129 Status: Acute Assessment and Plan 51 y/o male with alcoholism presented to ED with upper GI bleeding. Symptomatic Anemia - IVF hydration with NS at 125 cc/hr - H&H dropped from 13.4/39.1 to 12.0/35.2 - recheck CBC in a.m. and follow results - transfuse if needed GI bleed - Protonix drip - Consult gastroenterology Alcohol Abuse - counselled regarding cessation - pathophysiology of alcohol abuse - Librium and Ativan to prevent alcohol withdrawal -Thiamine and folic acid supplementation Pancreatitis - Lipase 400 - IVF hydration with NS at 125 cc/hr - recheck lipase and follow trends Case management consultation - patient is homeless and will need help with discharge planning DVT prophylaxis - SCDs/TEDs This note was transcribed by [email or web address] [Eufemia Zambrano]. I, Dr. Nadia Sethi personally performed the history, physical exam, and medical decision making; and confirmed the accuracy of the information in the transcribed note. Authenticated by Dr. Nadia Sethi on 10/16/16 at 03:07. Discussed Condition With ER physician, patient, and RN Physician Certification 2 Midnight Certification Type: Admission for Inpatient Services Order for Inpatient Services The services are ordered in accordance with Medicare regulations or non- Medicare payer requirements, as applicable. In the case of services not specified as inpatient-only, they are appropriately provided as inpatient services in accordance with the 2-midnight benchmark. Estimated LOS (days): 3 days is the estimated time the patient will need to remain in the hospital, assuming treatment plan goals are met and no additional complications. Post-Hospital Plan: Home Problem Qualifiers (1) GI bleed: Qualified Code: K92.1 - Gastrointestinal hemorrhage with melena (2) Pancreatitis: Qualified Code: K85.20 - Alcohol-induced acute pancreatitis, unspecified complication status (3) Alcohol intoxication in active alcoholic: Qualified Code: F10.120 - Alcohol intoxication in active alcoholic, uncomplicated Eufemia Zambrano Oct 16, 2016 03:07 Nadia Sethi MD Oct 21, 2016 07:49
[2016-10-16] MEDS ORDERED: LORazepam 2 MG/ML VIAL IV PUSH PRN ×4 (03:15→15:15)
[2016-10-16] MEDS ORDERED: THIAMINE HCL 100 MG TAB PO ONE (03:15)
[2016-10-16 03:42] LABS: HEMATOCRIT 35.2 % (39.0-51.0); REVIEW FLAG FINAL
[2016-10-16] MEDS ORDERED: MORPHINE SULFATE 4 MG/ML INJ IV ONE ×2 (09:30→14:15)
[2016-10-16] MEDS: ONDANSETRON HCL 4 MG/2 ML VIAL IV PUSH PRN ×2 (09:32→17:33)
[2016-10-16] MEDS: chlordiazePOXIDE 25 MG CAP PO SCH ×3 (09:33→17:32)
[2016-10-16] MEDS: THIAMINE HCL 100 MG TAB PO SCH (09:33)
[2016-10-16] MEDS: FOLIC ACID 1 MG TAB PO SCH (09:33)
[2016-10-16] MEDS: SODIUM CHLORIDE 0.9% FLUSH 10 ML FLUSH IV FLUSH SCH (09:33)
--- NOTE | 2016-10-16 09:34 | PD.CONS ---
HPI History of Present Illness This is a 51 year old homeless male who with hx of alcohol abuse who presented to the ER with complaints of hematemesis and black stools. Patient was evaluated previously by our services for coffee ground emesis and under went EGD on (08/23/16) ----> 1. There was LA Class D esophagitis noted; biopsy was performed. 2. There was erythematous gastritis in the gastric antrum3. Normal duodenal mucosa.4. Retroflexed views revealed a hiatal hernia, BX revealed fibrinopurulent exudate admixed with desquamated squamous cells consistent with ulcer abase, negative for fungal . He was recommended a repeat in 6 months. States black stools on going for few days. Yesterday, he started having bloody emesis, this is bright red, associated with upper gastric pain. hgb dropped 13.4 /39 to 12.0/35.2. Last hematemesis was last nigh. Currently patient is having dry heaves with bile out put. He denies hematochezia. He reports that he did have decreased appetite yesterday and did not eat anything prior to the onset of his symptoms. He does have a history of GERD and states he used to take Prilosec daily, but it has been a while since he took it. He does have chronic back pain and takes ibuprofen, but not daily, he alternates with Tylenol. He takes Aspirin . He also drinks alcohol on a daily basis, although he is not able to quantify that amount. Last drink was yesterday. EToh levels 314. He denies the use of any blood thinners. He denies any family history of esophageal, gastric, or colorectal cancer. He never had colonoscopy (Fernando Graham) PFSH Past Medical History Hypertension TIA CVA COPD Numbness in legs Seizure related to alcohol withdrawal Carpal tunnel syndrome Denies diabetes mellitus Past Surgical History Appendectomy Tumor removed from right leg Stabbed in bilateral forearms with repair Back surgery . (Fernando Graham) Coded Allergies: No Known Allergies (Unverified , 10/12/16) Medications Current Medications Medications (Trade) Dose Ordered Sig/Liborio Route Start Time Stop Time Status Last Admin (NS Flush) 2 ml UNSCH PRN IV FLUSH 10/16/16 00:45 (NS Flush) 2 ml BID IV FLUSH 10/16/16 09:00 Naloxone HCl 0.4 mg 0.4 mg UNSCH PRN IV 10/16/16 00:45 (Protonix Inj/NS Inj) 100 ml @ 10 mls/hr Q10H IV 10/16/16 01:45 10/16/16 01:25 (Librium) 25 mg TID PO 10/16/16 09:00 (Ativan Inj) 1 mg Q2H PRN IV PUSH 10/16/16 03:15 (Vitamin B1) 100 mg DAILY PO 10/16/16 09:00 (Folate) 1 mg DAILY PO 10/16/16 09:00 (Zofran Inj) 4 mg Q8HR PRN IV PUSH 10/16/16 08:45 Family History Mother from breathing problem no family hx of colon cancer . Social History Tobacco: reports smoking - 1 PPD x 10 years Alcohol: daily drinker, not able to quantify Illicit Drugs: occasional marijuana - denies IVDA . (Fernando Graham) GI Exam Vitals I&O Vital Signs Date Time Temp Pulse Resp B/P Pulse Ox O2 Delivery O2 Flow Rate FiO2 10/16/16 08:07 97.6 81 20 116/79 98 10/16/16 05:04 98.4 80 18 94/52 97 10/16/16 01:46 86 18 102/70 99 Nasal Cannula 2 10/15/16 23:51 92 18 107/70 94 18 98/65 96 18 101/67 10/15/16 22:51 94 Room Air 10/15/16 22:45 98.3 99 20 98/63 97 Laboratory Test 10/15/16 10/16/16 23:20 03:26 White Blood Count 7.4 TH/MM3 Red Blood Count 4.41 MIL/MM3 Hemoglobin 13.4 GM/DL 12.0 GM/DL Hematocrit 39.1 % 35.2 % Mean Corpuscular Volume 88.5 FL Mean Corpuscular Hemoglobin 30.5 PG Mean Corpuscular Hemoglobin 34.4 % Concent Red Cell Distribution Width 15.3 % Platelet Count 227 TH/MM3 Mean Platelet Volume 7.1 FL Neutrophils (%) (Auto) 59.0 % Lymphocytes (%) (Auto) 30.3 % Monocytes (%) (Auto) 6.8 % Eosinophils (%) (Auto) 2.9 % Basophils (%) (Auto) 1.0 % Neutrophils # (Auto) 4.3 TH/MM3 Lymphocytes # (Auto) 2.2 TH/MM3 Monocytes # (Auto) 0.5 TH/MM3 Eosinophils # (Auto) 0.2 TH/MM3 Basophils # (Auto) 0.1 TH/MM3 CBC Comment DIFF FINAL Differential Comment Prothrombin Time 10.8 SEC Prothromb Time International 1.0 RATIO Ratio Activated Partial 28.7 SEC Thromboplast Time Sodium Level 136 MEQ/L Potassium Level 3.2 MEQ/L Chloride Level 97 MEQ/L Carbon Dioxide Level 29.2 MEQ/L Anion Gap 10 MEQ/L Blood Urea Nitrogen 8 MG/DL Creatinine 0.72 MG/DL Estimat Glomerular Filtration 115 ML/MIN Rate Random Glucose 93 MG/DL Calcium Level 7.7 MG/DL Total Bilirubin 0.5 MG/DL Aspartate Amino Transf 51 U/L (AST/SGOT) Alanine Aminotransferase 29 U/L (ALT/SGPT) Alkaline Phosphatase 92 U/L Total Creatine Kinase 164 U/L Troponin I LESS THAN 0.02 NG/ML Total Protein 7.0 GM/DL Albumin 3.3 GM/DL Lipase 400 U/L Ethyl Alcohol Level 314 MG/DL Blood Type A POSITIVE Antibody Screen NEGATIVE Blood Bank Comment Physical Examination HEENT: normocephalic; atraumatic; no jaundice. NECK: Neck is supple, no JVD, no lymphadenopathy. CHEST: Chest is clear to auscultation and percussion. CARDIAC: Regular rate and rhythm with no murmur gallop or rubs. ABDOMEN: Soft, nondistended, epigastric pain, no hepatosplenomegaly; bowel sounds are present in all four quadrants. EXTREMITIES: No clubbing, cyanosis, or edema. SKIN: Normal; no rash; no jaundice. MATERIAL CONTROLLER: No focal deficits; alert and oriented times three. (Amawi,Khawla KEYCASE ASSEMBLER) Assessment and Plan Plan - GIB,hematemesis, black stools. (+) NSAID/ETOH use. Takes ibuprofen as needed. Also drinks daily,unable to quantify amount. Patient was evaluated previously by our services for coffee ground emesis and under went EGD on () ----> 1. There was LA Class D esophagitis noted; biopsy was performed. 2. There was erythematous gastritis in the gastric antrum3. Normal duodenal mucosa.4. Retroflexed views revealed a hiatal hernia, BX revealed fibrinopurulent exudate admixed with desquamated squamous cells consistent with ulcer abase, negative for fungal . He was recommended a repeat in 6 months. black stools on going for few days. Yesterday, he started having bloody emesis, this is bright red, associated with upper gastric pain. hgb dropped from 13.4/ 39 to 12.0/35.2. Last hematemesis was last nigh. Currently patient is having dry heaves with bile out put. NPO. Protonix drip - GERD. Protonix - Elevated AST- likely alcohol induced - Acute pancreatitis- lipase 400, - Alcohol abuse- counselled in regard to cessation - HTN, Hx CVA, chronic back pain, per primary PLAN: - Plan for egd today - Obtain consents - NPO - Protonix - Zofran - monitor hh - transfuse as needed - lipase in am - DTs precautions - Alcohol cessation - Supportive care - Further recommendations to follow based on results of above - Pt seen and examined by Dr. Garcia and myself and this note is written on his behalf (Fernando Graham) Physician Comments Patient seen and examined Agree with above Continue with current supportive care Monitor labs Plan for an EGD today (Hilario Garcia MD) Fernando Graham Oct 16, 2016 09:34 Hilario Garcia MD Oct 16, 2016 12:21
[2016-10-16 10:27] LABS: AUTOMATED NEUTROPHIL # 4.1 TH/MM3 (1.8-7.7); BASOPHIL % 0.8 % (0.0-2.0); EOSINOPHIL # 0.1 TH/MM3 (0-0.4); EOSINOPHIL % 2.5 % (0.0-4.0); HEMATOCRIT 36.9 % (39.0-51.0); HEMO FLAGS DIFF FINAL; LYMPH % 18.3 % (9.0-44.0); MEAN CELL VOLUME 89.8 FL (80.0-100.0); MEAN CORPUSCULAR HEMOGLOBIN 31.3 PG (27.0-34.0); MEAN CORPUSCULAR HGB CONC 34.8 % (32.0-36.0); MONO % 6.5 % (0.0-8.0); NEUT % 71.9 % (16.0-70.0); PLATELET COUNT 152 TH/MM3 (150-450); RED BLOOD COUNT 4.11 MIL/MM3 (4.50-5.90); RED CELL DISTRIBUTION WIDTH 15.5 % (11.6-17.2); WHITE BLOOD COUNT 5.7 TH/MM3 (4.0-11.0)
[2016-10-16 10:44] LABS: ALT (GPT) 29 U/L (12-78); ANION GAP 7 MEQ/L (5-15); AST (GOT) 47 U/L (15-37); BICARBONATE 25.9 MEQ/L (21.0-32.0); BLOOD UREA NITROGEN 7 MG/DL (7-18); CHLORIDE 103 MEQ/L (98-107); GLOMERULAR FILTRATION RATE 163 ML/MIN (>89); POTASSIUM 3.6 MEQ/L (3.5-5.1); SODIUM (NA) 136 MEQ/L (136-145)
[2016-10-16 10:47] LABS: ALKALINE PHOSPHATASE 85 U/L (45-117); TOTAL BILIRUBIN ADULT 0.6 MG/DL (0.2-1.0)
--- NOTE | 2016-10-16 12:23 | PD.PROCEDR ---
GI Procedure REFERRING PHYSICIAN ERINN PROCEDURE PERFORMED EGD with biopsy INDICATION FOR PROCEDURE Hematemesis nausea and vomiting PROCEDURE: The procedure, risks and benefits were discussed with Mr. Love and informed consent was obtained. Anesthesia sedated him with Diprivan. He was placed in the left lateral decubitus position. EGD: The Pentax videoscope was introduced through the oropharynx and advanced to the second portion of the duodenum under direct visualization. Retroflexion was performed in the stomach. FINDINGS: The esophagus there was distal esophageal mucosal friability with erythema and ulceration this was biopsied this is most likely related to nausea vomiting and reflux The stomach there was a small hiatal hernia otherwise gastric mucosa was unremarkable The duodenum there was patchy erythema in the duodenum but no ulcerations and no erosions biopsies were taken ESTIMATED BLOOD LOSS: None SPECIMENS REMOVED: Esophageal and duodenal biopsies COMPLICATIONS: None IMPRESSION: Severe ulcerated esophagitis Duodenitis PLAN: Await biopsy Continue with PPI Clear liquid diet Supportive care Reflux precautions Stop alcohol Hilario Garcia MD Oct 16, 2016 12:23
[2016-10-16] MEDS ORDERED: MIDAZOLAM HCL 2 MG/2 ML VIAL ONE (12:44)
--- NOTE | 2016-10-16 12:48 | EKG ---
Date Performed: 10/15/2016 Time Performed: 22:54:15 PTAGE: 51 years EKG: Sinus rhythm MARKED LEFT AXIS DEVIATION ABNORMAL ECG NO PREVIOUS TRACING DOCTOR: Mukesh Naqvi Interpretating Date/Time 10/16/2016 12:45:17
[2016-10-16] MEDS ORDERED: FLUMAZENIL 0.5 MG/5 ML VIAL IV PUSH PRN (15:15)
[2016-10-16] MEDS ORDERED: LORazepam 2 MG TAB PO PRN (15:15)
--- NOTE | 2016-10-16 15:22 | HHI.PR ---
Addendum to Inpatient Note Addendum Reason: Additional Documentation Additional Information Abdomen called several times by RN because the patient is complaining of abdominal pain. The patient complains of abdominal pain, tremors, denies hallucinations, complains of nausea but no vomiting. Has not had any more hematemesis. The patient is awake alert oriented 3, in moderate distress secondary to nausea and abdominal pain. Tremors are observed in upper extremities, patient is diaphoretic, lungs are clear bilaterally, abdomen is soft, diffusely tender to palpation, nondistended, no guarding or rebound tenderness. Patient presents with upper GI bleed and hematemesis, continue Protonix drip, patient is status post EGD by the patient was found to have an ulcerated esophagitis and hiatal hernia. Continue Protonix drip. I will continue normal saline and will place the patient on IV morphine as needed for pain control. The patient also has acute alcohol withdrawal symptoms. Continue CIWA protocol with benzodiazepines. Elevated lipase now normal. Elevated lipase likely secondary to esophagitis. Gerald Moran MD Oct 16, 2016 15:22
[2016-10-16] MEDS ORDERED: MORPHINE SULFATE 4 MG/ML INJ IV PUSH PRN (15:30)
[2016-10-16] MEDS ORDERED: DO NOT ADM ANY ANTICOAGULANT DRUGS PRN (17:15)
[2016-10-16] MEDS: NS + KCL 20 MEQ INJ 1,000 ML IV SCH (17:32)
[2016-10-16] MEDS: MORPHINE SULFATE 4 MG/ML INJ IV PUSH PRN (17:32)
[2016-10-16] MEDS: SODIUM CHLORIDE 0.9% FLUSH 10 ML FLUSH IV FLUSH PRN ×2 (17:33→17:53)
[2016-10-16] MEDS: LORazepam 2 MG/ML VIAL IV PUSH PRN ×3 (17:53→22:30)
[2016-10-17] VITALS: BP 132/87; PULSE 82; RESP 18; TEMP 96.8; O2SAT 99
[2016-10-17] MEDS: SODIUM CHLORIDE 0.9% FLUSH 10 ML FLUSH IV FLUSH SCH ×3 (01:14→20:22)
[2016-10-17] MEDS: PANTOPRAZOLE INJ 80 MG in SODIUM CHLORIDE 0.9% INJ 100 ML IV SCH ×4 (01:14→21:43)
[2016-10-17] MEDS: NS + KCL 20 MEQ INJ 1,000 ML IV SCH ×3 (01:24→20:22)
[2016-10-17] MEDS: LORazepam 1 MG TAB PO PRN ×3 (02:32→17:58)
[2016-10-17 04:00] VITALS: BP 130/85; PULSE 80; PULSE 81; RESP 18; TEMP 97.3; O2SAT 100
[2016-10-17] MEDS: chlordiazePOXIDE 25 MG CAP PO SCH ×3 (07:18→17:58)
[2016-10-17] MEDS: FOLIC ACID 1 MG TAB PO SCH (07:18)
[2016-10-17] MEDS: THIAMINE HCL 100 MG TAB PO SCH (07:18)
[2016-10-17 08:00] VITALS: BP 132/84; PULSE 77; PULSE 81; RESP 18; TEMP 96.8; O2SAT 99
[2016-10-17 08:15] LABS: HEMATOCRIT 38.2 % (39.0-51.0); MEAN CELL VOLUME 91.4 FL (80.0-100.0); MEAN CORPUSCULAR HEMOGLOBIN 30.5 PG (27.0-34.0); MEAN CORPUSCULAR HGB CONC 33.4 % (32.0-36.0); PLATELET COUNT 143 TH/MM3 (150-450); RED BLOOD COUNT 4.18 MIL/MM3 (4.50-5.90); RED CELL DISTRIBUTION WIDTH 15.4 % (11.6-17.2); REVIEW FLAG FINAL; WHITE BLOOD COUNT 4.5 TH/MM3 (4.0-11.0)
[2016-10-17 08:35] LABS: ALT (GPT) 26 U/L (12-78); ANION GAP 10 MEQ/L (5-15); AST (GOT) 41 U/L (15-37); BICARBONATE 26.6 MEQ/L (21.0-32.0); BLOOD UREA NITROGEN 6 MG/DL (7-18); CHLORIDE 97 MEQ/L (98-107); GLOMERULAR FILTRATION RATE 175 ML/MIN (>89); SODIUM (NA) 134 MEQ/L (136-145)
[2016-10-17 08:36] LABS: ALKALINE PHOSPHATASE 89 U/L (45-117); TOTAL BILIRUBIN ADULT 0.8 MG/DL (0.2-1.0)
[2016-10-17] MEDS: ONDANSETRON HCL 4 MG/2 ML VIAL IV PUSH PRN (11:15)
--- NOTE | 2016-10-17 11:19 | HHI.PR ---
Subjective Remarks Follow-up abdominal pain, GI bleed. Patient continues to report abdominal pain and nausea. Also reporting cough productive of clear sputum. Objective Vitals Vital Signs Date Time Temp Pulse Resp B/P Pulse Ox O2 Delivery O2 Flow Rate FiO2 10/17/16 08:00 96.8 77 18 132/84 99 10/17/16 08:00 81 10/17/16 04:00 97.3 80 18 130/85 100 10/17/16 04:00 81 10/17/16 00:00 96.8 82 18 132/87 99 10/16/16 22:59 87 10/16/16 20:48 80 10/16/16 20:10 98.0 81 18 131/81 98 10/16/16 17:00 97.9 85 18 131/87 96 10/16/16 16:30 81 10/16/16 13:55 81 10/16/16 13:32 98.0 81 18 126/84 96 10/16/16 13:15 97.8 83 15 127/81 100 10/16/16 13:00 81 17 107/57 98 10/16/16 12:45 85 16 121/73 98 10/16/16 12:39 97.4 82 15 129/82 100 I/O 10/16/16 10/16/16 10/16/16 10/17/16 10/17/16 10/17/16 07:00 15:00 23:00 07:00 15:00 23:00 Intake Total 850 ml 920 ml 240 ml 505 ml Output Total 0 ml 900 ml Balance 850 ml 920 ml -660 ml 505 ml Intake Oral 420 ml 240 ml IV Total 100 ml 500 ml 505 ml Other 750 ml Output Urine Total 0 ml 900 ml Estimated Blood Loss 0 ml # Voids 2 Result Diagram: 10/17/16 0648 10/17/16 0648 Objective Remarks General: Disheveled male in no acute distress. Appears older than stated age. Mildly tremulous. Heart: Regular rate and rhythm. No murmur. Lungs: Clear to auscultation bilaterally. No wheezes, rales, or rhonchi. Breathing is nonlabored. Abdomen: Soft, nondistended. Mild diffuse tenderness to palpation without rebound or guarding. Extremities: No lower extremity edema. Psych: Alert and oriented. Procedures 7/27/17 EGD with biopsy Urinary Catheter: No Vascular Central Line Catheter: No A/P Problem List: (1) GI bleed ICD Code: K92.2 Status: Acute (2) Pancreatitis ICD Code: K85.90 Status: Acute (3) Alcohol intoxication in active alcoholic ICD Code: F10.129 Status: Acute (4) Esophagitis ICD Code: K20.9 Status: Acute (5) Alcohol withdrawal ICD Code: F10.239 Status: Acute Assessment and Plan 1. GI bleed with symptomatic anemia: Continue Protonix drip. Appreciate GI recommendations. Status post EGD. Continue IV fluids. Monitor H&H. Stable overnight. Transfuse if necessary. 2. Alcohol abuse with alcohol withdrawal: Patient has been counseled regarding cessation of alcohol use. Continue CIWA protocol. Continue thiamine, folic acid supplementation. Seizure/EtOH withdrawal precautions. 3. Pancreatitis: Continue IV fluids. Lipase now within normal limits. Clear liquid diet as tolerated. 4. DVT prophylaxis: SCDs, RENÉE hose. Avoid chemical prophylaxis secondary to GI bleed. Problem Qualifiers (1) GI bleed: Qualified Code: K92.1 - Gastrointestinal hemorrhage with melena (2) Pancreatitis: Qualified Code: K85.20 - Alcohol-induced acute pancreatitis, unspecified complication status (3) Alcohol intoxication in active alcoholic: Qualified Code: F10.120 - Alcohol intoxication in active alcoholic, uncomplicated Marlon Manuel MD Oct 17, 2016 11:19
[2016-10-17] MEDS: MORPHINE SULFATE 4 MG/ML INJ IV PUSH PRN ×2 (11:21→20:22)
[2016-10-17 12:00] VITALS: BP 124/80; PULSE 77; RESP 18; TEMP 96.6; O2SAT 97
--- NOTE | 2016-10-17 13:52 | HHI.GIFU ---
Subjective Remarks Patient is resting in bed, feeling slightly better but continue to have epigastric pain and intermittent heaving where just froth comes out. No more hematemesis (Elenitaelly,[place] AUTOMOTIVE PAINTER HELPER) Objective Vitals I&O Vital Signs Date Time Temp Pulse Resp B/P Pulse Ox O2 Delivery O2 Flow Rate FiO2 10/17/16 12:00 96.6 77 18 124/80 97 10/17/16 08:00 96.8 77 18 132/84 99 10/17/16 08:00 81 10/17/16 04:00 97.3 80 18 130/85 100 10/17/16 04:00 81 10/17/16 00:00 96.8 82 18 132/87 99 10/16/16 22:59 87 10/16/16 20:48 80 10/16/16 20:10 98.0 81 18 131/81 98 10/16/16 17:00 97.9 85 18 131/87 96 10/16/16 16:30 81 10/16/16 13:55 81 I/O 10/16/16 10/16/16 10/16/16 10/17/16 10/17/16 10/17/16 06:59 14:59 22:59 06:59 14:59 22:59 Intake Total 850 ml 920 ml 240 ml 505 ml Output Total 0 ml 900 ml Balance 850 ml 920 ml -660 ml 505 ml Intake Oral 420 ml 240 ml IV Total 100 ml 500 ml 505 ml Other 750 ml Output Urine Total 0 ml 900 ml Estimated Blood Loss 0 ml # Voids 2 Laboratory Laboratory Tests Test 10/17/16 06:48 White Blood Count 4.5 Red Blood Count 4.18 Hemoglobin 12.7 Hematocrit 38.2 Mean Corpuscular Volume 91.4 Mean Corpuscular Hemoglobin 30.5 Mean Corpuscular Hemoglobin 33.4 Concent Red Cell Distribution Width 15.4 Platelet Count 143 Mean Platelet Volume 7.5 Sodium Level 134 Potassium Level 4.0 Chloride Level 97 Carbon Dioxide Level 26.6 Anion Gap 10 Blood Urea Nitrogen 6 Creatinine 0.50 Estimat Glomerular Filtration 175 Rate Random Glucose 58 Calcium Level 7.9 Total Bilirubin 0.8 Aspartate Amino Transf 41 (AST/SGOT) Alanine Aminotransferase 26 (ALT/SGPT) Alkaline Phosphatase 89 Total Protein 6.4 Albumin 2.8 Physical Exam HEENT: normocephalic; atraumatic; no jaundice. NECK: Neck is supple, no JVD, no lymphadenopathy. CHEST: Chest is clear to auscultation and percussion. CARDIAC: Regular rate and rhythm with no murmur gallop or rubs. ABDOMEN: Soft, nondistended, epigastric pain ; no hepatosplenomegaly; bowel sounds are present in all four quadrants. EXTREMITIES: No clubbing, cyanosis, or edema. SKIN: Normal; no rash; no jaundice. METAL BALER: No focal deficits; alert and oriented times three. (Fernando Graham) Assessment and Plan Plan - GIB,hematemesis, black stools. No more bleeding. (+) NSAID/ETOH use. Takes ibuprofen as needed. Also drinks daily,unable to quantify amount. S/P EGD on (10/16/16) ----> Severe ulcerated esophagitis, Duodenitis bx pending Hh stable - GERD. Protonix - Elevated AST- likely alcohol induced - Acute pancreatitis- Improving lipase 400---> 197 - Alcohol abuse- counselled in regard to cessation - HTN, Hx CVA, chronic back pain, per primary PLAN: - Full liquid diet - Await Bx - Protonix - Zofran - Monitor labs - Avoid NSAIDs - DTs precautions - Alcohol cessation - Supportive care - Further recommendations to follow based on results of above - Pt seen and examined by Dr. Garcia and myself and this note is written on his behalf (Fernando Graham) Physician Comments Patient seen and examined Agree with above Continue with current supportive care Monitor labs We will sign off (Hilario Garcia MD) Fernando Graham Oct 17, 2016 13:52 Hilario Garcia MD Oct 17, 2016 20:19
[2016-10-17 16:00] VITALS: BP 119/80; PULSE 79; RESP 18; TEMP 98; O2SAT 99
[2016-10-17] MEDS ORDERED: ALUMINUM/MAGNESIUM/SIMETH 30 ML CUP PO PRN (19:00)
[2016-10-17 20:00] VITALS: BP 117/83; PULSE 79; PULSE 91; PULSE 93; RESP 18; TEMP 96.9; O2SAT 96
[2016-10-18] VITALS (10 sets, daily range): BP systolic 121–142; BP diastolic 79–95; PULSE 69–84; RESP 17–22; TEMP 95.9–97.2; O2SAT 95–98
[2016-10-18] MEDS: MORPHINE SULFATE 4 MG/ML INJ IV PUSH PRN ×6 (04:07→22:12)
[2016-10-18] MEDS: NS + KCL 20 MEQ INJ 1,000 ML IV SCH ×2 (04:08→15:46)
[2016-10-18] MEDS: THIAMINE HCL 100 MG TAB PO SCH (07:39)
[2016-10-18] MEDS: chlordiazePOXIDE 25 MG CAP PO SCH ×3 (07:39→17:53)
[2016-10-18] MEDS: FOLIC ACID 1 MG TAB PO SCH (07:39)
[2016-10-18] MEDS: ONDANSETRON HCL 4 MG/2 ML VIAL IV PUSH PRN ×2 (07:42→16:02)
[2016-10-18] MEDS: SODIUM CHLORIDE 0.9% FLUSH 10 ML FLUSH IV FLUSH SCH ×2 (07:44→20:30)
--- NOTE | 2016-10-18 10:11 | HHI.PR ---
Subjective Remarks Follow-up abdominal pain. Patient still reporting pain in his upper abdomen. Has been tolerating full liquids. States that he feels weak, but a little stronger today. Objective Vitals Vital Signs Date Time Temp Pulse Resp B/P Pulse Ox O2 Delivery O2 Flow Rate FiO2 10/18/16 09:11 12 10/18/16 08:23 76 10/18/16 04:00 76 10/18/16 04:00 95.9 80 18 130/84 96 10/18/16 00:00 79 10/18/16 00:00 96.2 82 18 121/79 95 10/17/16 20:00 96.9 93 18 117/83 96 10/17/16 20:00 91 10/17/16 16:00 98.0 79 18 119/80 99 10/17/16 12:00 96.6 77 18 124/80 97 I/O 10/17/16 10/17/16 10/17/16 10/18/16 10/18/16 10/18/16 06:59 14:59 22:59 06:59 14:59 22:59 Intake Total 240 ml 505 ml 2133 ml 880 ml 1020 ml Output Total 900 ml 1500 ml 1100 ml 900 ml Balance -660 ml -995 ml 1033 ml -20 ml 1020 ml Intake Oral 240 ml 0 ml 240 ml IV Total 505 ml 1893 ml 880 ml 1020 ml Output Urine Total 900 ml 1500 ml 1100 ml 900 ml Result Diagram: 10/17/1648 10/17/16 0648 Objective Remarks General: Disheveled male in no acute distress. Appears older than stated age. Mildly tremulous. Heart: Regular rate and rhythm. No murmur. Lungs: Clear to auscultation bilaterally. No wheezes, rales, or rhonchi. Breathing is nonlabored. Abdomen: Soft, nondistended. Mild diffuse tenderness to palpation without rebound or guarding. Extremities: No lower extremity edema. Skin: Wounds on bilateral posterior heels. Psych: Alert and oriented. Procedures 10/16/16 EGD with biopsy Urinary Catheter: No Vascular Central Line Catheter: No A/P Problem List: (1) GI bleed ICD Code: K92.2 Status: Acute (2) Pancreatitis ICD Code: K85.90 Status: Acute (3) Alcohol intoxication in active alcoholic ICD Code: F10.129 Status: Acute (4) Esophagitis ICD Code: K20.9 Status: Acute (5) Alcohol withdrawal ICD Code: F10.239 Status: Acute Assessment and Plan 1. GI bleed with symptomatic anemia: Continue Protonix. Appreciate GI recommendations. Status post EGD. Continue IV fluids. Monitor H&H. 2. Alcohol abuse with alcohol withdrawal: Patient has been counseled regarding cessation of alcohol use. Continue CIWA protocol. Continue thiamine, folic acid supplementation. Seizure/EtOH withdrawal precautions. 3. Pancreatitis: Continue IV fluids. Lipase is within normal limits. Advance to heart healthy diet as tolerated. 4. DVT prophylaxis: SCDs, RENÉE hose. Avoid chemical prophylaxis secondary to GI bleed. Problem Qualifiers (1) GI bleed: Qualified Code: K92.1 - Gastrointestinal hemorrhage with melena (2) Pancreatitis: Qualified Code: K85.20 - Alcohol-induced acute pancreatitis, unspecified complication status (3) Alcohol intoxication in active alcoholic: Qualified Code: F10.120 - Alcohol intoxication in active alcoholic, uncomplicated Marlon Manuel MD Oct 18, 2016 10:11
[2016-10-18] MEDS: NICOTINE 21 MG/24 HR PATCH T-DERMAL SCH (16:18)
[2016-10-18] MEDS: PANTOPRAZOLE SOD 40 MG DELAYED RELEASE TAB PO SCH (20:29)
[2016-10-18] MEDS: LORazepam 1 MG TAB PO PRN (22:09)
[2016-10-19] VITALS (13 sets, daily range): BP systolic 99–151; BP diastolic 68–104; PULSE 66–89; RESP 17–18; TEMP 96–96.8; O2SAT 95–99
[2016-10-19] MEDS: NS + KCL 20 MEQ INJ 1,000 ML IV SCH ×3 (01:43→22:33)
[2016-10-19] MEDS: MORPHINE SULFATE 4 MG/ML INJ IV PUSH PRN ×2 (04:42→11:02)
[2016-10-19 06:55] LABS: AUTOMATED NEUTROPHIL # 3.6 TH/MM3 (1.8-7.7); BASOPHIL % 0.9 % (0.0-2.0); EOSINOPHIL # 0.3 TH/MM3 (0-0.4); EOSINOPHIL % 4.9 % (0.0-4.0); HEMATOCRIT 37.1 % (39.0-51.0); HEMO FLAGS DIFF FINAL; LYMPH % 20.4 % (9.0-44.0); LYMPHOCYTE # 1.1 TH/MM3 (1.0-4.8); MEAN CELL VOLUME 90.4 FL (80.0-100.0); MEAN CORPUSCULAR HEMOGLOBIN 31.1 PG (27.0-34.0); MEAN CORPUSCULAR HGB CONC 34.4 % (32.0-36.0); MONO % 6.6 % (0.0-8.0); NEUT % 67.2 % (16.0-70.0); PLATELET COUNT 153 TH/MM3 (150-450); RED BLOOD COUNT 4.11 MIL/MM3 (4.50-5.90); RED CELL DISTRIBUTION WIDTH 15.9 % (11.6-17.2); WHITE BLOOD COUNT 5.3 TH/MM3 (4.0-11.0)
[2016-10-19 07:10] LABS: BICARBONATE 27.7 MEQ/L (21.0-32.0); POTASSIUM 3.6 MEQ/L (3.5-5.1)
[2016-10-19] MEDS: PANTOPRAZOLE SOD 40 MG DELAYED RELEASE TAB PO SCH ×2 (08:11→20:53)
[2016-10-19] MEDS: chlordiazePOXIDE 25 MG CAP PO SCH ×3 (08:11→17:35)
[2016-10-19] MEDS: REMOVE OLD PATCH T-DERMAL SCH (08:11)
[2016-10-19] MEDS: THIAMINE HCL 100 MG TAB PO SCH (08:11)
[2016-10-19] MEDS: SODIUM CHLORIDE 0.9% FLUSH 10 ML FLUSH IV FLUSH SCH ×2 (08:11→20:53)
[2016-10-19] MEDS: FOLIC ACID 1 MG TAB PO SCH (08:11)
[2016-10-19] MEDS: NICOTINE 21 MG/24 HR PATCH T-DERMAL SCH (08:11)
--- NOTE | 2016-10-19 09:35 | HHI.PR ---
Subjective Remarks Follow-up abdominal pain, weakness. Patient states that he feels slightly better today. Still with nausea and vomiting, but was able to tolerate eating a small amount yesterday. Abdominal pain slightly improved. Objective Vitals Vital Signs Date Time Temp Pulse Resp B/P Pulse Ox O2 Delivery O2 Flow Rate FiO2 10/19/16 08:49 96.0 66 18 120/87 96 10/19/16 04:57 18 10/19/16 04:10 70 10/19/16 04:00 96.8 82 17 117/90 97 10/19/16 01:44 80 99/68 10/19/16 00:34 80 10/19/16 00:00 96.4 89 18 151/104 98 10/18/16 20:33 73 10/18/16 20:00 96.3 77 17 142/95 96 10/18/16 17:26 76 10/18/16 16:00 97.0 70 18 128/90 96 10/18/16 13:11 69 10/18/16 12:00 96.6 84 22 129/86 98 I/O 10/18/16 10/18/16 10/18/16 10/19/16 10/19/16 10/19/16 07:00 15:00 23:00 07:00 15:00 23:00 Intake Total 880 ml 1020 ml 1825 ml 120 ml Output Total 900 ml 1650 ml 800 ml Balance -20 ml 1020 ml 175 ml -680 ml Intake Oral 720 ml 120 ml IV Total 880 ml 1020 ml 1105 ml Output Urine Total 900 ml 1650 ml 800 ml # Bowel Movements 0 0 Result Diagram: 10/19/16 0609 10/19/16 0609 Objective Remarks General: Disheveled male in no acute distress. Appears older than stated age. Heart: Regular rate and rhythm. No murmur. Lungs: Clear to auscultation bilaterally. No wheezes, rales, or rhonchi. Breathing is nonlabored. Abdomen: Soft, nondistended. Mild diffuse tenderness to palpation without rebound or guarding. Extremities: No lower extremity edema. Skin: Wounds on bilateral posterior heels. Psych: Alert and oriented. Procedures 10/16/16 EGD with biopsy Urinary Catheter: No Vascular Central Line Catheter: No A/P Problem List: (1) GI bleed ICD Code: K92.2 Status: Acute (2) Pancreatitis ICD Code: K85.90 Status: Acute (3) Alcohol intoxication in active alcoholic ICD Code: F10.129 Status: Acute (4) Esophagitis ICD Code: K20.9 Status: Acute (5) Alcohol withdrawal ICD Code: F10.239 Status: Acute Assessment and Plan 1. GI bleed with symptomatic anemia: Continue Protonix. Appreciate GI recommendations. Status post EGD. Continue IV fluids. Monitor H&H. 2. Alcohol abuse with alcohol withdrawal: Patient has been counseled regarding cessation of alcohol use. Continue CIWA protocol. Continue thiamine, folic acid supplementation. Seizure/EtOH withdrawal precautions. 3. Pancreatitis: Continue IV fluids. Lipase is within normal limits. Heart healthy diet as tolerated. Patient still reporting abdominal pain, but slightly less today. 4. DVT prophylaxis: SCDs, RENÉE enriquez. Avoid chemical prophylaxis secondary to GI bleed. Problem Qualifiers (1) GI bleed: Qualified Code: K92.1 - Gastrointestinal hemorrhage with melena (2) Pancreatitis: Qualified Code: K85.20 - Alcohol-induced acute pancreatitis, unspecified complication status (3) Alcohol intoxication in active alcoholic: Qualified Code: F10.120 - Alcohol intoxication in active alcoholic, uncomplicated Marlon Manuel MD Oct 19, 2016 09:35
[2016-10-19] MEDS: oxyCODONE/ACETAMINOPHEN 5 MG/325 MG TAB PO PRN ×2 (14:12→18:27)
[2016-10-19] MEDS: oxyCODONE/ACETAMINOPHEN 10 MG/325 MG TAB PO PRN (22:32)
[2016-10-20] VITALS (10 sets, daily range): BP systolic 91–125; BP diastolic 61–86; PULSE 57–75; RESP 18–20; TEMP 96–97.2; O2SAT 95–99
[2016-10-20 07:31] LABS: BICARBONATE 28.8 MEQ/L (21.0-32.0); MAGNESIUM 1.9 MG/DL (1.5-2.5); POTASSIUM 3.9 MEQ/L (3.5-5.1)
[2016-10-20] MEDS: THIAMINE HCL 100 MG TAB PO SCH (07:40)
[2016-10-20] MEDS: PANTOPRAZOLE SOD 40 MG DELAYED RELEASE TAB PO SCH ×2 (07:40→21:54)
[2016-10-20] MEDS: chlordiazePOXIDE 25 MG CAP PO SCH ×3 (07:40→17:21)
[2016-10-20] MEDS: FOLIC ACID 1 MG TAB PO SCH (07:41)
[2016-10-20] MEDS: oxyCODONE/ACETAMINOPHEN 10 MG/325 MG TAB PO PRN (07:41)
[2016-10-20] MEDS: NICOTINE 21 MG/24 HR PATCH T-DERMAL SCH (07:41)
[2016-10-20] MEDS: REMOVE OLD PATCH T-DERMAL SCH (07:41)
[2016-10-20] MEDS: SODIUM CHLORIDE 0.9% FLUSH 10 ML FLUSH IV FLUSH SCH ×2 (07:42→21:56)
[2016-10-20] MEDS: NS + KCL 20 MEQ INJ 1,000 ML IV SCH ×2 (11:13→21:55)
--- NOTE | 2016-10-20 12:20 | HHI.PR ---
Subjective Remarks Written by Marifer Manzano PA-C acting as scribe for Dr. Manuel on 10/20/16 at 12:14. Follow-up on patient with abdominal pain, weakness. Patient states he is "not bad" today. Reports abdominal pain is improving. He is able to walk more and is eating better. Continues to have low energy. Denies any nausea or vomiting. No chest pain or shortness of breath. Objective Vitals Vital Signs Date Time Temp Pulse Resp B/P Pulse Ox O2 Delivery O2 Flow Rate FiO2 10/20/16 08:52 96.9 70 20 125/84 95 10/20/16 04:00 96.0 68 18 108/79 96 10/20/16 04:00 57 10/20/16 00:00 74 10/19/16 23:58 96.3 75 18 114/81 99 10/19/16 23:32 20 10/19/16 20:00 73 10/19/16 20:00 96.0 73 18 108/80 95 10/19/16 16:57 74 10/19/16 16:00 96.0 72 18 118/87 96 10/19/16 12:50 96.3 84 18 129/88 97 10/19/16 12:28 88 I/O 10/19/16 10/19/16 10/19/16 10/20/16 10/20/16 10/20/16 07:00 15:00 23:00 07:00 15:00 23:00 Intake Total 120 ml 980 ml 1610 ml Output Total 800 ml 400 ml 600 ml 600 ml Balance -680 ml -400 ml 380 ml 1010 ml Intake Oral 120 ml 480 ml 480 ml IV Total 500 ml 1130 ml Output Urine Total 800 ml 400 ml 600 ml 600 ml # Bowel Movements 0 0 0 Result Diagram: 10/19/16 0609 10/20/16 0620 Objective Remarks GENERAL: Well-nourished, well-developed patient in NAD. Awake and alert. Lying in hospital bed. SKIN: Wounds on bilateral posterior heels. HEAD: Normocephalic. Atraumatic. EYES: Pupils equal and round. No scleral icterus. No injection or drainage. ENT: No nasal bleeding or discharge. Mucous membranes pink and moist. NECK: Supple. Trachea midline. CARDIOVASCULAR: Regular rate and rhythm. S1, S2 noted. No murmur appreciated. RESPIRATORY: No accessory muscle use. Clear to auscultation. Breath sounds equal bilaterally. GASTROINTESTINAL: Abdomen soft, nondistended. Mild diffuse tenderness noted. Normoactive bowel sounds x4. No rebound or guarding. MUSCULOSKELETAL: No obvious deformities. Extremities without clubbing, cyanosis , or edema. NEUROLOGICAL: Awake and alert. Able to move all extremities. Normal speech. PSYCHIATRIC: Alert and oriented 3. Appropriate mood and affect; insight and judgment normal. Procedures 10/16/16 EGD with biopsy Medications and IVs Current Medications Medications (Trade) Dose Ordered Sig/Liborio Route Start Time Stop Time Status Last Admin (NS Flush) 2 ml UNSCH PRN IV FLUSH 10/16/16 00:45 10/16/16 17:53 (NS Flush) 2 ml BID IV FLUSH 10/16/16 09:00 10/19/16 08:11 (Narcan Inj) 0.4 mg UNSCH PRN IV 10/16/16 00:45 (Librium) 25 mg TID PO 10/16/16 09:00 10/20/16 07:40 (Ativan Inj) 1 mg Q2H PRN IV PUSH 10/16/16 03:15 (Vitamin B1) 100 mg DAILY PO 10/16/16 09:00 10/20/16 07:40 (Folate) 1 mg DAILY PO 10/16/16 09:00 10/20/16 07:41 (Zofran Inj) 4 mg Q8HR PRN IV PUSH 10/16/16 08:45 10/18/16 16:02 (Romazicon Inj) 0.2 mg Q1M PRN IV PUSH 10/16/16 15:15 (Ativan) 1 mg Q4H PRN PO 10/16/16 15:15 10/18/16 22:09 (Ativan Inj) 1 mg Q4H PRN IV PUSH 10/16/16 15:15 (Ativan) 2 mg Q2H PRN PO 10/16/16 15:15 (Ativan Inj) 2 mg Q2H PRN IV PUSH 10/16/16 15:15 10/16/16 22:30 (Ativan Inj) 2 mg Q1H PRN IV PUSH 10/16/16 15:15 Lorazepam 2 mg 2 mg Q15M PRN IV PUSH 10/16/16 15:15 (NS + KCl 20 Meq Inj) 1,000 ml @ 100 mls/hr Q10H IV 10/16/16 15:30 10/20/16 11:13 (Mag-Al Plus Susp Liq) 30 ml Q6H PRN PO 10/17/16 19:00 (Protonix) 40 mg Q12HR PO 10/18/16 21:00 10/20/16 07:40 (Habitrol 21 Mg Patch.24 Hr) 1 patch DAILY T-DERMAL 10/18/16 15:15 10/20/16 07:41 Miscellaneous Information 1 DAILY T-DERMAL 10/19/16 09:00 10/20/16 07:41 (Percocet 5-325 Mg) 1 tab Q4H PRN PO 10/19/16 11:15 10/19/16 18:27 (Percocet 10-325 Mg) 1 tab Q4H PRN PO 10/19/16 11:15 10/20/16 07:41 A/P Problem List: (1) GI bleed ICD Code: K92.2 Status: Acute (2) Pancreatitis ICD Code: K85.90 Status: Acute (3) Alcohol intoxication in active alcoholic ICD Code: F10.129 Status: Acute (4) Esophagitis ICD Code: K20.9 Status: Acute (5) Alcohol withdrawal ICD Code: F10.239 Status: Acute Assessment and Plan 1. GI bleed with symptomatic anemia: Continue Protonix. Appreciate GI recommendations. Status post EGD. Continue IV fluids. Monitor H&H, stable. 2. Alcohol abuse with alcohol withdrawal: Patient has been counseled regarding cessation of alcohol use. Continue CIWA protocol. Continue thiamine, folic acid supplementation. Seizure/EtOH withdrawal precautions. 3. Pancreatitis: Continue IV fluids. Lipase is within normal limits. Heart healthy diet as tolerated, tolerating diet well. Patient still reporting abdominal pain, but improving. Continue oral pain management. 4. Generalized weakness. Secondary to above. Continue participation with physical therapy. Cane ordered. 5. DVT prophylaxis: SCDs, RENÉE hose. Avoid chemical prophylaxis secondary to GI bleed. This note was transcribed by star Manzano PA-C. I, Dr. Marlon Manuel personally performed the history, physical exam, and medical decision making; and confirmed the accuracy of the information in the transcribed note. Authenticated by Dr. Marlon Manuel on 10/20/16 at 13:05. Discharge Planning Possible discharge in the next 1-2 days pending clinical course. Problem Qualifiers (1) GI bleed: Qualified Code: K92.1 - Gastrointestinal hemorrhage with melena (2) Pancreatitis: Qualified Code: K85.20 - Alcohol-induced acute pancreatitis, unspecified complication status (3) Alcohol intoxication in active alcoholic: Qualified Code: F10.120 - Alcohol intoxication in active alcoholic, uncomplicated Marifer Manzano Oct 20, 2016 12:20 Marlon Manuel MD Oct 20, 2016 13:05
[2016-10-20] MEDS: oxyCODONE/ACETAMINOPHEN 5 MG/325 MG TAB PO PRN ×3 (12:57→21:55)
[2016-10-20] MEDS ORDERED: CANE/ALUMINUM/A1 MIS (13:05)
[2016-10-21] VITALS: BP 104/74; PULSE 68; RESP 18; TEMP 97.5; O2SAT 97
[2016-10-21 00:02] VITALS: PULSE 65
[2016-10-21] MEDS: oxyCODONE/ACETAMINOPHEN 5 MG/325 MG TAB PO PRN (01:41)
[2016-10-21 04:00] VITALS: BP 104/74; PULSE 75; RESP 18; TEMP 97.6; O2SAT 94
[2016-10-21] MEDS: NS + KCL 20 MEQ INJ 1,000 ML IV SCH (05:22)
[2016-10-21 08:00] VITALS: BP 122/84; PULSE 60; PULSE 74; RESP 16; TEMP 96.7; O2SAT 98
[2016-10-21] MEDS: PANTOPRAZOLE SOD 40 MG DELAYED RELEASE TAB PO SCH (08:37)
[2016-10-21] MEDS: NICOTINE 21 MG/24 HR PATCH T-DERMAL SCH (08:37)
[2016-10-21] MEDS: THIAMINE HCL 100 MG TAB PO SCH (08:38)
[2016-10-21] MEDS: SODIUM CHLORIDE 0.9% FLUSH 10 ML FLUSH IV FLUSH SCH (08:38)
[2016-10-21] MEDS: chlordiazePOXIDE 25 MG CAP PO SCH ×2 (08:38→13:32)
[2016-10-21] MEDS: REMOVE OLD PATCH T-DERMAL SCH (08:38)
[2016-10-21] MEDS: FOLIC ACID 1 MG TAB PO SCH (08:38)
--- NOTE | 2016-10-21 08:51 | HHI.PR ---
Subjective Remarks Follow up abdominal pain. Patient states that he is having less pain today. Has been ambulating with a cane. Tolerating small meals. Feels that he could be discharged if he is able to get pain medication prescription filled. Objective Vitals Vital Signs Date Time Temp Pulse Resp B/P Pulse Ox O2 Delivery O2 Flow Rate FiO2 10/21/16 04:00 97.6 75 18 104/74 94 10/21/16 03:11 16 10/21/16 00:02 65 10/21/16 00:00 97.5 68 18 104/74 97 10/20/16 21:59 74 10/20/16 20:00 96.0 75 18 91/61 98 10/20/16 16:46 97.0 71 20 104/79 99 10/20/16 16:07 72 10/20/16 12:40 71 10/20/16 12:36 97.2 73 20 112/86 96 10/20/16 08:52 96.9 70 20 125/84 95 I/O 10/20/16 10/20/16 10/20/16 10/21/16 10/21/16 10/21/16 06:59 14:59 22:59 06:59 14:59 22:59 Intake Total 1610 ml 1180 ml 720 ml Output Total 600 ml 1100 ml 450 ml Balance 1010 ml 80 ml 270 ml Intake Oral 480 ml 480 ml 720 ml IV Total 1130 ml 700 ml Output Urine Total 600 ml 1100 ml 450 ml # Bowel Movements 0 Result Diagram: 10/19/16 0609 10/20/16 0620 Objective Remarks General: Disheveled male in no acute distress. Heart: Regular rate and rhythm. No murmur. Lungs: Clear to auscultation bilaterally. No wheezes, rales, or rhonchi. Breathing is nonlabored. Abdomen: Soft, nontender, nondistended. Extremities: No lower extremity edema. Psych: Alert and oriented. Procedures 10/16/16 EGD with biopsy Urinary Catheter: No Vascular Central Line Catheter: No A/P Problem List: (1) GI bleed ICD Code: K92.2 Status: Resolved (2) Pancreatitis ICD Code: K85.90 Status: Acute (3) Alcohol intoxication in active alcoholic ICD Code: F10.129 Status: Acute (4) Esophagitis ICD Code: K20.9 Status: Acute (5) Alcohol withdrawal ICD Code: F10.239 Status: Acute Assessment and Plan 1. GI bleed with symptomatic anemia: Continue Protonix. Appreciate GI recommendations. Status post EGD. H&H stable. 2. Alcohol abuse with alcohol withdrawal: Patient has been counseled regarding cessation of alcohol use. No longer requiring Ativan. Continue thiamine, folic acid supplementation. Seizure/EtOH withdrawal precautions. 3. Pancreatitis: Lipase is within normal limits. Heart healthy diet as tolerated , tolerating diet well. Patient still reporting abdominal pain, but improving. Continue oral pain medications. 4. Generalized weakness: Secondary to above. Continue physical therapy. Patient has a cane. 5. DVT prophylaxis: SCDs, RENÉE hose. Avoid chemical prophylaxis secondary to GI bleed. Discharge Planning Discharge to prior living situation today. Problem Qualifiers (1) GI bleed: Qualified Code: K92.1 - Gastrointestinal hemorrhage with melena (2) Pancreatitis: Qualified Code: K85.20 - Alcohol-induced acute pancreatitis, unspecified complication status (3) Alcohol intoxication in active alcoholic: Qualified Code: F10.120 - Alcohol intoxication in active alcoholic, uncomplicated Marlon Manuel MD Oct 21, 2016 08:51
[2016-10-21] MEDS ORDERED: OXYC1TAB63 PO (08:56)
[2016-10-21] MEDS ORDERED: CHLO10CA5 PO (08:56)
[2016-10-21] MEDS ORDERED: GNP100TA3 PO (08:56)
[2016-10-21] MEDS ORDERED: FOLI1TAB6 PO (08:56)
[2016-10-21] MEDS ORDERED: PANT40TA3 PO (08:56)
--- NOTE | 2016-10-21 08:57 | HHI.DCPOC ---
Discharge Care Plan Diagnosis: (1) GI bleed (2) Generalized weakness (3) Alcohol withdrawal (4) Esophagitis (5) Alcohol intoxication in active alcoholic (6) Pancreatitis Goals to Promote Your Health * To prevent worsening of your condition and complications * To maintain your health at the optimal level Directions to Meet Your Goals Take your medications as prescribed Follow your dietary instruction Follow activity as directed Keep your appointments as scheduled Take your immunizations and boosters as scheduled If your symptoms worsen call your PCP, if no PCP go to Urgent Care Center or Emergency Room Smoking is Dangerous to Your Health. Avoid second hand smoke Call the 24-hour hour crisis hotline for domestic abuse at Marlon Manuel MD Oct 21, 2016 08:57
[2016-10-21 12:00] VITALS: BP 118/78; PULSE 69; PULSE 73; RESP 16; TEMP 97.7; O2SAT 99
[2016-10-21] MEDS: oxyCODONE/ACETAMINOPHEN 10 MG/325 MG TAB PO PRN (13:33)
== END 2016-10-21 16:12 | disposition home or self-care (01) | DRG 377 ==
LOC: NEPE 22:38 → NEDA 10-16 00:43 → NEPHCDU 10-16 02:22 → HOCA 10-16 22:54
PROVIDERS: ADMIT Family Medicine; ATTEND Family Medicine
PROC: 0DB38ZX Excision of Lower Esophagus, Via Natural or Artificial Opening Endoscopic, Diagnostic (ICD-10-PCS; 2016-10-16)
PROC: 0DB98ZX Excision of Duodenum, Via Natural or Artificial Opening Endoscopic, Diagnostic (ICD-10-PCS; principal; 2016-10-16 11:50)
DX: K92.0 Hematemesis (principal); K85.20 Alcohol induced acute pancreatitis without necrosis or infection; K22.10 Ulcer of esophagus without bleeding; F10.239 Alcohol dependence with withdrawal, unspecified; I10 Essential (primary) hypertension; K21.9 Gastro-esophageal reflux disease without esophagitis; K29.80 Duodenitis without bleeding; K44.9 Diaphragmatic hernia without obstruction or gangrene; Z59.0 Homelessness; G89.29 Other chronic pain; Z79.82 Long term (current) use of aspirin; Z79.1 Long term (current) use of non-steroidal anti-inflammatories (NSAID); D64.9 Anemia, unspecified; Z86.73 Personal history of transient ischemic attack (TIA), and cerebral infarction without residual deficits; J44.9 Chronic obstructive pulmonary disease, unspecified; F12.90 Cannabis use, unspecified, uncomplicated; F17.210 Nicotine dependence, cigarettes, uncomplicated
CPT/HCPCS: 80048; 80053; 80307; 82550; 83690; 83735; 84484; 85014; 85018; 85025; 85027; 85610; 85730; 86850; 86900; 86901; 88305; 88312; 93005; 96374; 96375; C9113; J2060; J2250; J2270; J2405; J3010; J3480; J7030

== ENCOUNTER 2016-10-25 21:59 | Emergency (ER) | payer SELFPAY ==
[~2016-10-25] VITALS: Ht 182.9 cm; Wt 90.0 kg
[~2016-10-25 21:59] MED LIST changes: +CANE/ALUMINUM/A1 MIS; -CARA1TAB6 PO; +CHLO10CA5 PO; +FOLI1TAB6 PO; +GNP100TA3 PO; +MAPA500C PO; +OXYC1TAB63 PO; +PANT40TA3 PO; -PROT40TA PO
[2016-10-25 22:15] VITALS: BP 115/72; PULSE 107; RESP 20; TEMP 98.1; O2SAT 94
[2016-10-25 22:36] VITALS: BP 115/72; PULSE 107; RESP 20; TEMP 98.1; O2SAT 94
[2016-10-25 23:35] LABS: AUTOMATED NEUTROPHIL # 2.7 TH/MM3 (1.8-7.7); BASOPHIL # 0.2 TH/MM3 (0-0.2); BASOPHIL % 2.8 % (0.0-2.0); EOSINOPHIL # 0.2 TH/MM3 (0-0.4); EOSINOPHIL % 3.8 % (0.0-4.0); HEMATOCRIT 38.3 % (39.0-51.0); HEMO FLAGS DIFF FINAL; LYMPH % 39.4 % (9.0-44.0); LYMPHOCYTE # 2.4 TH/MM3 (1.0-4.8); MEAN CELL VOLUME 90.5 FL (80.0-100.0); MEAN CORPUSCULAR HEMOGLOBIN 30.4 PG (27.0-34.0); MEAN CORPUSCULAR HGB CONC 33.6 % (32.0-36.0); MONO % 8.3 % (0.0-8.0); NEUT % 45.7 % (16.0-70.0); PLATELET COUNT 260 TH/MM3 (150-450); RED BLOOD COUNT 4.23 MIL/MM3 (4.50-5.90); RED CELL DISTRIBUTION WIDTH 15.5 % (11.6-17.2)
[2016-10-25 23:53] LABS: ALT (GPT) 25 U/L (12-78); ANION GAP 10 MEQ/L (5-15); AST (GOT) 35 U/L (15-37); BICARBONATE 29.9 MEQ/L (21.0-32.0); BLOOD UREA NITROGEN 6 MG/DL (7-18); CHLORIDE 109 MEQ/L (98-107); GLOMERULAR FILTRATION RATE 102 ML/MIN (>89); POTASSIUM 3.7 MEQ/L (3.5-5.1); SODIUM (NA) 149 MEQ/L (136-145)
[2016-10-25 23:57] LABS: ALKALINE PHOSPHATASE 85 U/L (45-117); TOTAL BILIRUBIN ADULT 0.2 MG/DL (0.2-1.0)
[2016-10-26] MEDS ORDERED: SODIUM CHLOR 0.9% 1000 ML INJ 1,000 ML IV SCH (00:33)
--- NOTE | 2016-10-26 00:38 | PD ---
HPI Chief Complaint: Alcohol/Drug Intoxication Time Seen by Provider: 00:00 Travel History International Travel<30 days: No Contact w/Intl Traveler<30days: No Traveled to known affect area: No History of Present Illness HPI 51-year-old male presents for evaluation of alcohol intoxication. He drinks on a daily basis. Today he drank 2 pints of vodka and called EMS. He is complaining of epigastric pain which started today. It is similar to the pain that he had in September when he was admitted for pancreatitis. He reports 2 episodes of hematemesis today as well. Denies chest pain or shortness of breath. He endorses noncompliance with medication overprescribed upon his recent discharge. No other complaints. PFSH Past Medical History Blood Disorders: No Anxiety: Yes Depression: Yes Cardiovascular Problems: Yes COPD: Yes Cerebrovascular Accident: Yes (CVA) Endocrine: No Hypertension: Yes Immune Disorder: No Psychiatric: Yes Respiratory: Yes Pancreatitis: Yes Past Surgical History Appendectomy: Yes Social History Alcohol Use: Yes (4-6 4 locos per day) Tobacco Use: Yes (1 ppd) Substance Use: Yes (POT) Allergies-Medications (Allergen,Severity, Reaction): Coded Allergies: No Known Allergies (Unverified , 10/12/16) Reported Meds & Prescriptions Reported Meds & Active Scripts Active Folic Acid 1 Mg Tablet 1 Mg PO DAILY Gnp Vitamin B-1 (Thiamine HCl) 100 Mg Tab 100 Mg PO DAILY Pantoprazole (Pantoprazole Sodium) 40 Mg Tab 40 Mg PO Q12HR Oxycodone-Acetaminophen 5-325 mg Tab 1 Tab PO Q6HR PRN Chlordiazepoxide HCl 10 Mg Capsule 10 Mg PO DIRECTED 10mg PO TID x 2 days, then 10mg BID x 2 days, then 10mg daily x 3 days, then stop. NO ALCOHOL WHILE TAKING THIS MEDICATION. Cane/Aluminum/Adjustable (Device) 1 Mis Mis 1 Ea .ROUTE DIRECTED Reported Mapap (Acetaminophen) 500 Mg Cap 500 Mg PO Q4-6H PRN Review of Systems Except as stated in HPI: all other systems reviewed are Neg Physical Exam Narrative GENERAL: Disheveled appearing male in no acute distress SKIN: Warm and dry. HEAD: Atraumatic. Normocephalic. EYES: Pupils equal and round. No scleral icterus. No injection or drainage. ENT: No nasal bleeding or discharge. Mucous membranes pink and moist. NECK: Trachea midline. No JVD. CARDIOVASCULAR: Regular rate and rhythm. No murmur appreciated. RESPIRATORY: No accessory muscle use. Clear to auscultation. Breath sounds equal bilaterally. GASTROINTESTINAL: Abdomen soft, mild epigastric/left upper quadrant tenderness without guarding. Rectal examination reveals heme-negative stool. MUSCULOSKELETAL: No obvious deformities. No clubbing. No cyanosis. No edema. NEUROLOGICAL: Awake and alert. No obvious cranial nerve deficits. Motor grossly within normal limits. Slurred speech. Data Data Last Documented VS Vital Signs Date Time Temp Pulse Resp B/P Pulse Ox O2 Delivery O2 Flow Rate FiO2 10/25/16 22:15 98.1 107 20 115/72 94 Room Air Orders Complete Blood Count With Diff (10/25/16 23:05) Comprehensive Metabolic Panel (10/25/16 23:05) Alcohol (Ethanol) (10/25/16 23:05) Lipase (10/26/16 00:26) Act Partial Throm Time (Ptt) (10/26/16 00:26) Prothrombin Time / Inr (Pt) (10/26/16 00:26) Ondansetron Inj (Zofran Inj) (10/26/16 00:45) Pantoprazole Inj (Protonix Inj) (10/26/16 00:45) Sodium Chlor 0.9% 1000 Ml Inj (Ns 1000 M (10/26/16 00:33) Al-Mag Hy-Si 40-40-4 Mg/Ml Liq (Mag-Al P (10/26/16 00:45) Lidocaine 2% Viscous (Xylocaine 2% Visco (10/26/16 00:45) Morphine Inj (Morphine Inj) (10/26/16 01:30) Labs Laboratory Tests Test 10/25/16 10/26/16 23:09 00:29 White Blood Count 6.0 TH/MM3 Red Blood Count 4.23 MIL/MM3 Hemoglobin 12.9 GM/DL Hematocrit 38.3 % Mean Corpuscular Volume 90.5 FL Mean Corpuscular Hemoglobin 30.4 PG Mean Corpuscular Hemoglobin 33.6 % Concent Red Cell Distribution Width 15.5 % Platelet Count 260 TH/MM3 Mean Platelet Volume 7.2 FL Neutrophils (%) (Auto) 45.7 % Lymphocytes (%) (Auto) 39.4 % Monocytes (%) (Auto) 8.3 % Eosinophils (%) (Auto) 3.8 % Basophils (%) (Auto) 2.8 % Neutrophils # (Auto) 2.7 TH/MM3 Lymphocytes # (Auto) 2.4 TH/MM3 Monocytes # (Auto) 0.5 TH/MM3 Eosinophils # (Auto) 0.2 TH/MM3 Basophils # (Auto) 0.2 TH/MM3 CBC Comment DIFF FINAL Differential Comment Sodium Level 149 MEQ/L Potassium Level 3.7 MEQ/L Chloride Level 109 MEQ/L Carbon Dioxide Level 29.9 MEQ/L Anion Gap 10 MEQ/L Blood Urea Nitrogen 6 MG/DL Creatinine 0.80 MG/DL Estimat Glomerular Filtration 102 ML/MIN Rate Random Glucose 104 MG/DL Calcium Level 8.0 MG/DL Total Bilirubin 0.2 MG/DL Aspartate Amino Transf 35 U/L (AST/SGOT) Alanine Aminotransferase 25 U/L (ALT/SGPT) Alkaline Phosphatase 85 U/L Total Protein 7.1 GM/DL Albumin 3.1 GM/DL Lipase 356 U/L Ethyl Alcohol Level 262 MG/DL Prothrombin Time 11.1 SEC Prothromb Time International 1.0 RATIO Ratio Activated Partial 27.5 SEC Thromboplast Time MDM Medical Decision Making Medical Screen Exam Complete: Yes Emergency Medical Condition: Yes Medical Record Reviewed: Yes Differential Diagnosis Alcohol intoxication, gastritis, pancreatitis, Ashley-Chowdhury tear, esophageal varices Narrative Course 51-year-old male alcoholic presents intoxicated complaining of epigastric/left upper quadrant abdominal pain, 2 episodes of hematemesis. Review of his recent records reveals that an endoscopy was performed on October 16 revealing ulcerated esophagitis and duodenitis with the recommendation to stop alcohol, clear liquid diet, proton pump inhibitors. His hemoglobin today is 12.9 which is actually improved from 12.8 on October 19. His stool is heme-negative. The patient will be given IV fluids, Protonix, GI cocktail. He is encouraged to use his medications as previously prescribed. He will remain here until he is sober and then he will be discharged. Diagnosis Primary Impression: Esophagitis Additional Impression: Alcohol intoxication in active alcoholic Qualified Code: F10.220 - Alcohol intoxication in active alcoholic without complication Additional Instructions: Use the medications that were previously prescribed. Consider ceasing your alcohol consumption. Return for any emergent medical conditions. Med/Other Pt SpecificInfo: No Change to Meds Disposition: DISCHARGE HOME Condition: John Amaya Oct 26, 2016 00:38
[2016-10-26] MEDS ORDERED: ONDANSETRON HCL 4 MG/2 ML VIAL IVP ONE (00:45)
[2016-10-26] MEDS ORDERED: PANTOPRAZOLE SODIUM 40 MG VIAL IVP ONE (00:45)
[2016-10-26] MEDS ORDERED: ALUMINUM/MAGNESIUM/SIMETH 30 ML CUP PO ONE (00:45)
[2016-10-26] MEDS ORDERED: LIDOCAINE VISCOUS 2% SOLN 15 ML UDC PO ONE (00:45)
[2016-10-26 01:02] LABS: APTT (PATIENT) 27.5 SEC (24.3-30.1); PROTHROMBIN TIME - PATIENT 11.1 SEC (9.8-11.6)
[2016-10-26] MEDS ORDERED: MORPHINE SULFATE 4 MG/ML INJ IV PUSH ONE (01:30)
--- NOTE | 2016-10-26 17:28 | EKG ---
Date Performed: 10/25/2016 Time Performed: 22:30:56 PTAGE: 51 years EKG: SINUS TACHYCARDIA MARKED LEFT AXIS DEVIATION PATTERN CONSISTENT WITH PULMONARY DISEASE ABNO RMAL ECG Since PREVIOUS TRACING , no significant change noted PREVIOUS TRACIN10/15/2016 22.54 DOCTOR: Juani Conti Interpretating Date/Time 10/26/2016 17:27:51
== END 2016-10-26 01:50 | disposition home or self-care (01) ==
LOC: NEDAMB 21:59
DX: K20.9 Esophagitis, unspecified (principal); R10.13 Epigastric pain; R10.12 Left upper quadrant pain; K92.0 Hematemesis; R00.0 Tachycardia, unspecified; R94.31 Abnormal electrocardiogram [ECG] [EKG]; J44.9 Chronic obstructive pulmonary disease, unspecified; I10 Essential (primary) hypertension; Z79.899 Other long term (current) drug therapy
CPT/HCPCS: 80053; 80307; 83690; 85025; 85610; 85730; 93005; 96374; 99284; C9113; J2405; J7030

== ENCOUNTER 2016-10-27 12:41 | Emergency (ER) | payer SELFPAY | END 2016-10-27 14:26 | disposition left against medical advice (07) | LOC: NETRI 12:41 | DX: R10.9 Unspecified abdominal pain (principal); R11.2 Nausea with vomiting, unspecified; Z53.21 Procedure and treatment not carried out due to patient leaving prior to being seen by health care provider | CPT/HCPCS: 99281 ==

== ENCOUNTER 2016-11-17 19:15 | Observation (INO) | payer OTHER ==
[~2016-11-17] VITALS: Ht 185.4 cm; Wt 85.0 kg
[2016-11-17 19:24] VITALS: BP 128/58; PULSE 89; RESP 18; TEMP 98.7; O2SAT 100
[2016-11-17] MEDS ORDERED: SODIUM CHLOR 0.9% 1000 ML INJ 1,000 ML IV ONE (19:45)
[2016-11-17] MEDS ORDERED: ONDANSETRON HCL 4 MG/2 ML VIAL IV PUSH ONE (19:45)
[2016-11-17] MEDS ORDERED: SODIUM CHLORIDE 0.9% FLUSH 10 ML FLUSH IVF PRN (19:45)
--- NOTE | 2016-11-17 19:47 | PD ---
HPI Chief Complaint: Chest Pain Time Seen by Provider: 19:34 Travel History International Travel<30 days: No Contact w/Intl Traveler<30days: No Traveled to known affect area: No History of Present Illness HPI 51yo M with PMH of HTN, CVA, alcohol abuse here with c/o left sided chest pain that started 3-4 hours ago. States he was arrested and was in the police car when it started and it is sharp, left sided, constant, nonradiating. States it is associated with sob, nausea, nonbloody vomiting, diaphoresis. Pt also with mid epigastric abdominal pain for weeks. He had esophagitis. Pt was suppose to be admitted to chest pain center on 10/12/16 but I reviewed his records and pt signed out AMA. Pt did not have a stress test. Denies any cocaine use. Last drank alcohol at 3pm today. Pt was recently admitted for hematemesis and EGD found to have ulcerated esophagitis and duodenitis. PFSH Past Medical History Blood Disorders: No Anxiety: Yes Depression: Yes Cardiovascular Problems: Yes COPD: Yes Cerebrovascular Accident: Yes (CVA) Endocrine: No Hypertension: Yes Immune Disorder: No Psychiatric: Yes Respiratory: Yes Pancreatitis: Yes Tetanus Vaccination: < 5 Years Influenza Vaccination: No Past Surgical History Appendectomy: Yes Other Surgery: Yes Social History Alcohol Use: Yes (4-6 4 locos per day) Tobacco Use: Yes (1 ppd) Substance Use: Yes (POT) Allergies-Medications (Allergen,Severity, Reaction): Coded Allergies: No Known Allergies (Unverified , 11/17/16) Reported Meds & Prescriptions Reported Meds & Active Scripts Active Folic Acid 1 Mg Tablet 1 Mg PO DAILY Gnp Vitamin B-1 (Thiamine HCl) 100 Mg Tab 100 Mg PO DAILY Pantoprazole (Pantoprazole Sodium) 40 Mg Tab 40 Mg PO Q12HR Oxycodone-Acetaminophen 5-325 mg Tab 1 Tab PO Q6HR PRN Chlordiazepoxide HCl 10 Mg Capsule 10 Mg PO DIRECTED 10mg PO TID x 2 days, then 10mg BID x 2 days, then 10mg daily x 3 days, then stop. NO ALCOHOL WHILE TAKING THIS MEDICATION. Cane/Aluminum/Adjustable (Device) 1 Mis Mis 1 Ea .ROUTE DIRECTED Reported Mapap (Acetaminophen) 500 Mg Cap 500 Mg PO Q4-6H PRN Review of Systems Except as stated in HPI: all other systems reviewed are Neg Physical Exam Narrative GENERAL: 51yo M in mild distress. SKIN: Focused skin assessment warm/dry. HEAD: Atraumatic. Normocephalic. EYES: Pupils equal and round at 4mm bilaterally. EOMI. No scleral icterus. No injection or drainage. CARDIOVASCULAR: Regular rate and rhythm. No murmur appreciated. RESPIRATORY: No accessory muscle use. Clear to auscultation. Breath sounds equal bilaterally. GASTROINTESTINAL: Abdomen soft, mild epigastric ttp. No rebound tenderness or guarding. MUSCULOSKELETAL: No obvious deformities. No clubbing. No cyanosis. No edema. NEUROLOGICAL: Awake and alert. No obvious cranial nerve deficits. Motor grossly within normal limits. Normal speech. PSYCHIATRIC: Appropriate mood and affect; insight and judgment normal. Data Data Last Documented VS Vital Signs Date Time Temp Pulse Resp B/P (MAP) Pulse Ox O2 Delivery O2 Flow Rate FiO2 11/17/16 21:55 18 11/17/16 20:45 98 149/102 (118) 98 Room Air 11/17/16 19:31 2.00 11/17/16 19:24 98.7 Orders Orders Electrocardiogram (11/17/16 19:34) Basic Metabolic Panel (Bmp) (11/17/16 19:34) Complete Blood Count With Diff (11/17/16 19:34) Magnesium (Mg) (11/17/16 19:34) Prothrombin Time / Inr (Pt) (11/17/16 19:34) Act Partial Throm Time (Ptt) (11/17/16 19:34) Troponin I (11/17/16 19:34) Lipase (11/17/16 19:34) Chest, Single Ap (11/17/16 19:34) Ecg Monitoring (11/17/16 19:34) Bilateral Bp Monitoring (11/17/16 19:34) Iv Access Insert/Monitor (11/17/16 19:34) Oximetry (11/17/16 19:34) Oxygen Administration (11/17/16 19:34) Sodium Chloride 0.9% Flush (Ns Flush) (11/17/16 19:45) Ct Abd/Pel W Iv Contrast(Rout) (11/17/16 ) Ondansetron Inj (Zofran Inj) (11/17/16 19:45) Sodium Chlor 0.9% 1000 Ml Inj (Ns 1000 M (11/17/16 19:45) Alcohol (Ethanol) (11/17/16 19:37) Thiamine Inj (Thiamine Inj) (11/17/16 20:00) Aspirin (Aspirin) (11/17/16 20:00) Iohexol 350 Inj (Omnipaque 350 Inj) (11/17/16 20:19) Morphine Inj (Morphine Inj) (11/17/16 20:45) Admit Order (Ed Use Only) (11/17/16 22:06) Alcohol Withdrawal Asmt-Ciwa ONCE (11/17/16 22:06) Flumazenil Inj (Romazicon Inj) (11/17/16 22:15) Lorazepam (Ativan) (11/17/16 22:15) Lorazepam Inj (Ativan Inj) (11/17/16 22:15) Lorazepam (Ativan) (11/17/16 22:15) Lorazepam Inj (Ativan Inj) (11/17/16 22:15) Lorazepam Inj (Ativan Inj) (11/17/16 22:15) Lorazepam Inj (Ativan Inj) (11/17/16 22:15) Labs Laboratory Tests Test 11/17/16 19:40 White Blood Count 8.9 TH/MM3 Red Blood Count 5.34 MIL/MM3 Hemoglobin 16.0 GM/DL Hematocrit 47.6 % Mean Corpuscular Volume 89.3 FL Mean Corpuscular Hemoglobin 30.0 PG Mean Corpuscular Hemoglobin Concent 33.6 % Red Cell Distribution Width 15.1 % Platelet Count 206 TH/MM3 Mean Platelet Volume 7.8 FL Neutrophils (%) (Auto) 72.5 % Lymphocytes (%) (Auto) 19.7 % Monocytes (%) (Auto) 4.6 % Eosinophils (%) (Auto) 2.3 % Basophils (%) (Auto) 0.9 % Neutrophils # (Auto) 6.4 TH/MM3 Lymphocytes # (Auto) 1.7 TH/MM3 Monocytes # (Auto) 0.4 TH/MM3 Eosinophils # (Auto) 0.2 TH/MM3 Basophils # (Auto) 0.1 TH/MM3 CBC Comment DIFF FINAL Differential Comment Prothrombin Time 10.8 SEC Prothromb Time International Ratio 1.0 RATIO Activated Partial Thromboplast Time 26.2 SEC Blood Urea Nitrogen 3 MG/DL Creatinine 0.74 MG/DL Random Glucose 91 MG/DL Calcium Level 8.2 MG/DL Magnesium Level 2.0 MG/DL Sodium Level 137 MEQ/L Potassium Level 4.0 MEQ/L Chloride Level 101 MEQ/L Carbon Dioxide Level 25.3 MEQ/L Anion Gap 11 MEQ/L Estimat Glomerular Filtration Rate 111 ML/MIN Troponin I LESS THAN 0.02 NG/ML Lipase 349 U/L Ethyl Alcohol Level 234 MG/DL [facility] Medical Decision Making Medical Screen Exam Complete: Yes Emergency Medical Condition: Yes Interpretation(s) EKG: NSR 94bpm. LAD. No ST segment elevation or depression. Differential Diagnosis Atypical chest pain vs. ACS vs. pancreatitis vs. esophagitis vs. GERD Narrative Course 51yo M with atypical chest pain. However, he does have cardiac risk factors including HTN, cig smoking and is a chronic alcoholic. Pt was last admitted to chest pain center last month but sign out AMA. Labs reviewed, no leukocytosis. Troponin negative. Blood alcohol 234. Lipase normal at 349. CXR negative. CTa/p negative. Nonspecific thickening of distal esophagitis. Pt has history of esophagitis. Pt was given aspirin 325mg PO and morphine 2mg IV. Pt reevaluated at bedside and pain has improved. Since pt has not had any stress test recently and sign out AMA last time in chest pain center will admit to chest pain center again. Diagnosis Primary Impression: Chest pain Qualified Codes: R07.9 - Chest pain, unspecified Admitting Information Admitting Physician Requests: Stephanie Peck DO Nov 17, 2016 19:47
[2016-11-17 19:55] VITALS: BP 143/105; PULSE 86; RESP 18; O2SAT 95; O2SAT 96
[2016-11-17 19:58] LABS: AUTOMATED NEUTROPHIL # 6.4 TH/MM3 (1.8-7.7); BASOPHIL # 0.1 TH/MM3 (0-0.2); BASOPHIL % 0.9 % (0.0-2.0); EOSINOPHIL # 0.2 TH/MM3 (0-0.4); EOSINOPHIL % 2.3 % (0.0-4.0); HEMATOCRIT 47.6 % (39.0-51.0); HEMO FLAGS DIFF FINAL; LYMPH % 19.7 % (9.0-44.0); LYMPHOCYTE # 1.7 TH/MM3 (1.0-4.8); MEAN CELL VOLUME 89.3 FL (80.0-100.0); MEAN CORPUSCULAR HGB CONC 33.6 % (32.0-36.0); MONO % 4.6 % (0.0-8.0); NEUT % 72.5 % (16.0-70.0); PLATELET COUNT 206 TH/MM3 (150-450); RED BLOOD COUNT 5.34 MIL/MM3 (4.50-5.90); RED CELL DISTRIBUTION WIDTH 15.1 % (11.6-17.2); WHITE BLOOD COUNT 8.9 TH/MM3 (4.0-11.0)
[2016-11-17] MEDS ORDERED: THIAMINE INJ 100 MG in SODIUM CHLORIDE 0.9% INJ 100 ML IV ONE (20:00)
[2016-11-17] MEDS ORDERED: ASPIRIN 325 MG TAB PO ONE (20:00)
[2016-11-17 20:15] LABS: APTT (PATIENT) 26.2 SEC (24.3-30.1); PROTHROMBIN TIME - PATIENT 10.8 SEC (9.8-11.6)
[2016-11-17] MEDS ORDERED: IOHEXOL 350 MG/ML 10 ML VIAL (for RAD DIAG) IVCONTRAST ONE (20:19)
[2016-11-17 20:31] LABS: ANION GAP 11 MEQ/L (5-15); BICARBONATE 25.3 MEQ/L (21.0-32.0); BLOOD UREA NITROGEN 3 MG/DL (7-18); CHLORIDE 101 MEQ/L (98-107); GLOMERULAR FILTRATION RATE 111 ML/MIN (>89); SODIUM (NA) 137 MEQ/L (136-145)
[2016-11-17 20:45] VITALS: BP 149/102; PULSE 98; RESP 18; O2SAT 98
[2016-11-17] MEDS ORDERED: MORPHINE SULFATE 4 MG/ML INJ IV PUSH ONE (20:45)
--- NOTE | 2016-11-17 21:11 | RADRPT ---
EXAM DATE/TIME: 11/17/2016 19:51 [facility] COMPARISON: CT ABDOMEN & PELVIS W CONTRAST, November 17, 2016, 20:16. CHEST SINGLE AP, October 12, 2016, 17:25. INDICATIONS : Chest pain. Short of breath. Vomiting. MEDICAL HISTORY : Stroke. Hypertension SURGICAL HISTORY : Appendectomy. ENCOUNTER: Initial ACUITY: 1 day PAIN SCORE: 5/10 LOCATION: Bilateral chest FINDINGS: A single view of the chest demonstrates the lungs to be symmetrically aerated without evidence of mas s, infiltrate or effusion. The cardiomediastinal contours are unremarkable. Osseous structures are intact. There are old healed right rib fractures. CONCLUSION: No acute disease. Ulises Kaur MD on November 17, 2016 at 21:08 Board Certified Radiologist. This report was verified electronically.
--- NOTE | 2016-11-17 22:01 | RADRPT ---
EXAM DATE/TIME: 11/17/2016 20:16 [facility] COMPARISON: CT ABDOMEN & PELVIS W CONTRAST, September 01, 2016, 9:22. INDICATIONS : Diffuse abdominal pain with vomiting. IV CONTRAST: 95 cc Omnipaque 350 (iohexol) IV ORAL CONTRAST: No oral contrast ingested. RADIATION DOSE: 7.51 CTDIvol (mGy) MEDICAL HISTORY : Chronic obstructive pulmonary disease. Pancreatitis. Hypertension.CVA. SURGICAL HISTORY : Appendectomy. ENCOUNTER: Initial ACUITY: 1 day PAIN SCALE: 8/10 LOCATION: Bilateral abdomen TECHNIQUE: Volumetric scanning of the abdomen and pelvis was performed. Using automated exposure control and adjustment of the mA and/or kV according to patient size, radiation dose was kept as low as reasonably achievable to obtain optimal diagnostic quality images. DICOM format image data is av ailable electronically for review and comparison. FINDINGS: There is thickening of the distal esophagus. It is nonspecific. There is low density seen throughout the liver consistent with hepatic steatosis. The spleen, pancreas, adrenal glands an d kidneys are normal. There is a splenule seen at the splenic hilum. Significantly dilated bowel is not seen. Scattered atherosclerotic calcifications are seen throughout the arterial system. No aneur ysm is seen. Pelvic structures appear grossly intact. There is some minimal suspected atelectasis at the lung bases. Old healed bilateral rib fractures ar e seen. There is degenerative change in the lumbar spine. CONCLUSION: 1. The cause of the patient's abdominal pain is not clearly identified. 2. Thickening of the distal esophagus. This is nonspecific. This was present previously. This area can be directly inspected as clinically needed. 3. Hepatic steatosis. Ulises Kaur MD on November 17, 2016 at 21:32 Board Certified Radiologist. This report was verified electronically.
[2016-11-17] MEDS ORDERED: FLUMAZENIL 0.5 MG/5 ML VIAL IV PUSH PRN (22:15)
[2016-11-17] MEDS ORDERED: LORazepam 2 MG TAB PO PRN (22:15)
[2016-11-17] MEDS ORDERED: LORazepam 2 MG/ML VIAL IV PUSH PRN ×3 (22:15)
[2016-11-17] MEDS ORDERED: LORazepam 1 MG TAB PO PRN (22:15)
[2016-11-17] MEDS ORDERED: SODIUM CHLORIDE 0.9% FLUSH 10 ML FLUSH IV FLUSH PRN (22:30)
[2016-11-17] MEDS ORDERED: METOCLOPRAMIDE INJ 10 MG in SODIUM CHLORIDE 0.9% INJ 50 ML IV ONE (22:45)
[2016-11-17 23:00] VITALS: O2SAT 100
[2016-11-17 23:14] VITALS: BP 155/100; PULSE 96; RESP 18; O2SAT 100
[2016-11-17 23:50] VITALS: PULSE 100
[2016-11-18 00:30] LABS: CREATINE KINASE 91 U/L (39-308)
[2016-11-18 02:17] LABS: CREATINE KINASE 87 U/L (39-308)
[2016-11-18] MEDS ORDERED: ONDANSETRON HCL 4 MG/2 ML VIAL IV PUSH ONE (02:45)
[2016-11-18] MEDS ORDERED: MORPHINE SULFATE 4 MG/ML INJ IV ONE (02:45)
[2016-11-18 03:49] VITALS: PULSE 89
[2016-11-18 04:34] VITALS: BP 146/90; PULSE 98; RESP 17; TEMP 97.5; O2SAT 96
[2016-11-18 07:29] VITALS: BP 176/94; PULSE 89; RESP 20; TEMP 97.1; O2SAT 97
[2016-11-18] MEDS: LORazepam 2 MG/ML VIAL IV PUSH PRN ×2 (07:56→11:48)
[2016-11-18 08:19] VITALS: PULSE 78
--- NOTE | 2016-11-18 08:27 | HHI.HP ---
HPI Primary Care Physician No Primary Care Physician Chief Complaint Chest pain History of Present Illness 51-year-old male with history of alcohol abuse, GERD, hypertension, and COPD presents to emergency room for further evaluation of chest pain. Onset last evening. He tells me he was arrested last evening and was placed in a van for nearly 3 hours. During this time he developed left anterior chest pain described as stabbing. No radiation of pain. Duration lasted hours. Continues to have chest pain although states pain has improved with medication provided in ER. No known precipitating factors no known injury, fall, or trauma to affected area. Associated symptoms include shortness of breath, nausea, vomiting, and dizziness. Endorses hurts to take a deep breath, touching area, and made worse with vomiting. No associated symptom of diaphoresis. Reports emesis is bilious, denies any coffee ground or bloody emesis. Reports nausea and vomiting most likely from alcohol withdrawal. Review of Systems General: Has been in his general state of health. Endorses alcohol abuse. Last drink at 2 PM yesterday. No fatigue, weakness, fever, chills, or recent illness change. HEENT: No TALBOT, no dysphasia CV: Continues to have chest pain as stated above. No palpitations. RESP: No SOB, cough, or sputum production. GI: Current nausea, reporting dry heaves. Nausea improved slightly with Zofran. States nausea mostly likely from alcohol withdrawal. Denies any hematemesis, melena, or blood in the stool since last admission. No change in appetite. : No dysuria EXT: No lower leg edema, no paraesthesias MS: No discomfort or change in ROM NEURO: No LOC, motor/sensory deficits PSYCH: No anxiety, depression, or suicidal ideation SKIN: No rashes, no concerning lesions Past Family Social History Allergies: Coded Allergies: No Known Allergies (Unverified , 11/17/16) Past Medical History HTN, GERD, GIB, TIA, COPD, etoh abuse, seizure due to etoh withdrawal, pancreatitis, anxiety, depression Past Surgical History Appendectomy, back surgery Reported Medications Active No medications Active Ordered Medications Current Medications Medications (Trade) Dose Ordered Sig/Liborio Route Start Time Stop Time Status Last Admin (NS Flush) 2 ml UNSCH PRN IVF 11/17/16 19:45 (Romazicon Inj) 0.2 mg Q1M PRN IV PUSH 11/17/16 22:15 (Ativan) 1 mg Q4H PRN PO 11/17/16 22:15 (Ativan Inj) 1 mg Q4H PRN IV PUSH 11/17/16 22:15 11/17/16 22:39 (Ativan) 2 mg Q2H PRN PO 11/17/16 22:15 (Ativan Inj) 2 mg Q2H PRN IV PUSH 11/17/16 22:15 11/18/16 07:56 (Ativan Inj) 2 mg Q1H PRN IV PUSH 11/17/16 22:15 (Ativan Inj) 2 mg Q15M PRN IV PUSH 11/17/16 22:15 (NS Flush) 2 ml UNSCH PRN IV FLUSH 11/17/16 22:30 (NS Flush) 2 ml BID IV FLUSH 11/18/16 09:00 11/18/16 07:55 Social History No known diabetes or hyperlipidemia. Endorses hypertension. Current smoker, smokes one pack/daily for most of his adult life. Reports alcohol abuse, last drink yesterday 2 PM. Unable to give daily amount of alcohol stating it varies. Denies any illegal drug use. Homeless, unemployed. Past cardiac testing None Physical Exam Vital Signs Vital Signs Date Time Temp Pulse Resp B/P (MAP) Pulse Ox O2 Delivery O2 Flow Rate FiO2 11/18/16 08:19 78 11/18/16 07:29 97.1 89 20 176/94 (121) 97 11/18/16 04:34 97.5 98 17 146/90 (108) 96 11/18/16 03:49 89 11/17/16 23:50 100 11/17/16 23:38 11/17/16 23:14 96 18 155/100 (118) 100 Room Air 11/17/16 23:00 100 11/17/16 21:55 18 11/17/16 20:45 98 18 149/102 (118) 98 Room Air 11/17/16 19:55 86 18 143/105 (118) 95 Room Air 11/17/16 19:55 96 Room Air 11/17/16 19:55 96 Room Air 11/17/16 19:31 92 18 100 Nasal Cannula 2.00 11/17/16 19:24 98.7 89 18 128/58 (81) 100 Physical Exam GENERAL: Alert thin, disheveled, WD, NAD, pleasant, male who appears older than stated age. HEAD: NC, AT CV: RRR, without murmur, rub, gallop, no JVD, S1-S2 no S3-S4. RESP: Clear lungs throughout bilateral, no crackles, wheeze, rhonchi, symmetrical chest rise, nonlabored, able to speak in full sentences ABD: Soft, NT, ND, no masses, positive bowel tones EXT: Pulses +24, no dependent edema MS: Normal tone 4 extremities, chest wall tender with palpation, no obvious deformities, full range of motion NEURO: Tremors bilateral upper extremities more prominent with voluntary movement. CN II through CN XII grossly intact, motor strength 5/5 PSYCH: A+O 3, pleasant affect, appropriate speech, appropriate mood and affect , insight and judgment SKIN: Normal turgor, normal texture, multiple tattoos, solar damage Laboratory Laboratory Tests Test 11/17/16 19:40 11/17/16 23:17 11/18/16 01:10 White Blood Count 8.9 Red Blood Count 5.34 Hemoglobin 16.0 Hematocrit 47.6 Mean Corpuscular Volume 89.3 Mean Corpuscular Hemoglobin 30.0 Mean Corpuscular Hemoglobin Concent 33.6 Red Cell Distribution Width 15.1 Platelet Count 206 Mean Platelet Volume 7.8 Neutrophils (%) (Auto) 72.5 Lymphocytes (%) (Auto) 19.7 Monocytes (%) (Auto) 4.6 Eosinophils (%) (Auto) 2.3 Basophils (%) (Auto) 0.9 Neutrophils # (Auto) 6.4 Lymphocytes # (Auto) 1.7 Monocytes # (Auto) 0.4 Eosinophils # (Auto) 0.2 Basophils # (Auto) 0.1 CBC Comment DIFF FINAL Differential Comment Prothrombin Time 10.8 Prothromb Time International Ratio 1.0 Activated Partial Thromboplast Time 26.2 Blood Urea Nitrogen 3 Creatinine 0.74 Random Glucose 91 Calcium Level 8.2 Magnesium Level 2.0 Sodium Level 137 Potassium Level 4.0 Chloride Level 101 Carbon Dioxide Level 25.3 Anion Gap 11 Estimat Glomerular Filtration Rate 111 Troponin I LESS THAN 0.02 LESS THAN 0.02 LESS THAN 0.02 Lipase 349 Ethyl Alcohol Level 234 Total Creatine Kinase 91 87 Result Diagram: 11/17/16193911/17/161939 Imaging Last Impressions Chest X-Ray 11/17/16 1934 Signed Impressions: Service Date/Time: Thursday, November 17, 2016 19:51 - CONCLUSION: No acute disease. Ulises Kaur MD Abdomen/Pelvis CT 11/17/16 0000 Signed Impressions: Service Date/Time: Thursday, November 17, 2016 20:16 - CONCLUSION: 1. The cause of the patient's abdominal pain is not clearly identified. 2. Thickening of the distal esophagus. This is nonspecific. This was present previously. This area can be directly inspected as clinically needed. 3. Hepatic steatosis. Ulises Kaur MD Course EKG Normal sinus tachycardia, left axis deviation Caprini VTE Risk Assessment Caprini VTE Risk Assessment: No/Low Risk (score <= 1) Caprini Risk Assessment Model Point Value = 1 Point Value = 2 Point Value = 3 Point Value = 5 Age 41-60 Minor surgery BMI > 25 kg/m2 Swollen legs Varicose veins or History of unexplained or recurrent spontaneous Oral contraceptives or hormone replacement Sepsis (< 1 month) Serious lung disease, including pneumonia (< 1 month) Abnormal pulmonary function Acute myocardial infarction Congestive heart failure (< 1 month) History of inflammatory bowel disease Medical patient at bed rest Age 61-74 Arthroscopic surgery Major open surgery (> 45 min) Laparoscopic surgery (> 45 min) Malignancy Confined to bed (> 72 hours) Immobilizing plaster cast Central venous access Age >= 75 History of VTE Family history of VTE Factor V Leiden Prothrombin [id number] Lupus anticoagulant Anticardiolipin antibodies Elevated serum homocysteine Heparin-induced thrombocytopenia Other congenital or acquired thrombophilia Stroke (< 1 month) Elective arthroplasty Hip, pelvis, or leg fracture Acute spinal cord injury (< 1 month) Prophylaxis Regimen Total Risk Factor Score Risk Level Prophylaxis Regimen 0-1 Low Early ambulation 2 Moderate Order ONE of the following: *Sequential Compression Device (SCD) *Heparin 5000 units SQ BID 3-4 Higher Order ONE of the following medications: *Heparin 5000 units SQ TID *Enoxaparin/Lovenox 40 mg SQ daily (WT < 150 kg, CrCl > 30 mL/min) *Enoxaparin/Lovenox 30 mg SQ daily (WT < 150 kg, CrCl > 10-29 mL/min) *Enoxaparin/Lovenox 30 mg SQ BID (WT < 150 kg, CrCl > 30 mL/min) AND/OR *Sequential Compression Device (SCD) 5 or more Highest Order ONE of the following medications: *Heparin 5000 units SQ TID (Preferred with Epidurals) *Enoxaparin/Lovenox 40 mg SQ daily (WT < 150 kg, CrCl > 30 mL/min) *Enoxaparin/Lovenox 30 mg SQ daily (WT < 150 kg, CrCl > 10-29 mL/min) *Enoxaparin/Lovenox 30 mg SQ BID (WT < 150 kg, CrCl > 30 mL/min) AND *Sequential Compression Device (SCD) Assessment and Plan Assessment and Plan #1 Atypical chest pain-admitted to chest pain center. Ruled out with 3 sets of EKGs, cardiac enzymes, monitor overnight. Seen and evaluated by Dr. Leeanna Sullivan. Chest discomfort easily reproducible most likely musculoskeletal in nature however due to multiple risk factors and never having stress test will complete Lexiscan this a.m. Naturally if unremarkable will later discharged this afternoon. Patient agreeable to plan a care. #2 Alcohol withdrawal-CIWA scale ordered in ED, ativan and zofran as needed. #3 History of GI bleed-CT of abdomen and pelvis unremarkable with nonspecific thickening of distal esophagus. Most recent EGD completed 08/23/16 and 10/16/16. . EGD results severe ulcerative esophagitis. 12:30 Nausea improved, no more emesis, requesting to eat. Lexiscan unremarkable for ischemia. Will discharge this afternoon if tolerates lunch. Follow up as needed with Dr. Rainey. He is agreeable to plan of care. Claudette Maddox Nov 18, 2016 08:27
[2016-11-18] MEDS ORDERED: SODIUM CHLORIDE 0.9% FLUSH 10 ML FLUSH IV FLUSH SCH (09:00)
--- NOTE | 2016-11-18 09:54 | EKG ---
Date Performed: 11/18/2016 Time Performed: 02:07:26 PTAGE: 51 years EKG: SINUS TACHYCARDIA LEFT ANTERIOR FASCICULAR BLOCK ABNORMAL ECG Since PREVIOUS TRACING , no significant change noted PREVIOUS TRACIN11/17/2016 23.25 DOCTOR: Leeanna Sullivan Interpretating Date/Time 11/18/2016 09:52:28
--- NOTE | 2016-11-18 09:55 | EKG ---
Date Performed: 11/17/2016 Time Performed: 19:34:46 PTAGE: 51 years EKG: Sinus rhythm LEFT ANTERIOR FASCICULAR BLOCK ABNORMAL ECG Since PREVIOUS TRACING , no significant change noted PREVIOUS TRACIN10/25/2016 22.30 DOCTOR: Leeanna Sullivan Interpretating Date/Time 11/18/2016 09:54:15
--- NOTE | 2016-11-18 09:55 | EKG ---
Date Performed: 11/17/2016 Time Performed: 23:25:53 PTAGE: 51 years EKG: Sinus rhythm LEFT ANTERIOR FASCICULAR BLOCK ABNORMAL ECG Since PREVIOUS TRACING , no significant change noted PREVIOUS TRACIN11/17/2016 19.34 DOCTOR: Leeanna Sullivan Interpretating Date/Time 11/18/2016 09:54:01
[2016-11-18] MEDS ORDERED: REGADENOSON INJ 0.4 MG/5 ML SYR ONE (10:54)
[2016-11-18 11:45] VITALS: BP 157/98; PULSE 90; RESP 20; TEMP 96.8; O2SAT 98
--- NOTE | 2016-11-18 11:48 | RADRPT ---
EXAM DATE/TIME: 11/18/2016 10:00 [facility] COMPARISON: No previous studies available for comparison. INDICATIONS : Chest pain. Angina. DOSE: 26.1 mCi Tc99m Myoview at stress. 8.4 mCi Tc99m Myoview at rest. 0.4 mg Lexiscan STRESS SYMPTOMS: Dyspnea, stomach pain and headache. EJECTION FRACTION: 68% MEDICAL HISTORY : Hypertension. SURGICAL HISTORY : Appendectomy. ENCOUNTER: Initial ACUITY: 1 day PAIN SCALE: 3/10 LOCATION: Left chest discomfort TECHNIQUE: The patient underwent pharmacologic stress with infusion of prescribed dose. Continuous ECG tracing was monitored during stress. Gated SPECT imaging was performed after stress and conventional SPECT i maging was performed at rest. The examination was performed on a SPECT/CT scanner, both attenuation and non-corrected datasets were reviewed. FINDINGS: DISTRIBUTION: The maximum perfused segment at stress is in the lateral wall. PERFUSION STUDY: The pattern of perfusion at stress is within normal limits. GATED STUDY: There is intact wall motion and thickening without hypokinetic or dyskinetic segments. CONCLUSION: 1. Unremarkable myocardial perfusion scan. RISK CATEGORY: Low (<1% Annual Mortality Rate) Michael Marie MD on November 18, 2016 at 11:46 Board Certified Radiologist. This report was verified electronically.
[2016-11-18 12:38] VITALS: PULSE 96
--- NOTE | 2016-11-18 12:49 | HHI.DCPOC ---
Discharge Care Plan Diagnosis: (1) Musculoskeletal chest pain (2) Alcohol abuse Goals to Promote Your Health * To prevent worsening of your condition and complications * To maintain your health at the optimal level Directions to Meet Your Goals Take your medications as prescribed Follow your dietary instruction Follow activity as directed Keep your appointments as scheduled Take your immunizations and boosters as scheduled If your symptoms worsen call your PCP, if no PCP go to Urgent Care Center or Emergency Room Smoking is Dangerous to Your Health. Avoid second hand smoke Call the 24-hour hour crisis hotline for domestic abuse at Claudette Maddox Nov 18, 2016 12:49
--- NOTE | 2016-11-18 16:29 | TR ---
Date Performed: 11/18/2016 Time Performed: 10:56:12 DOCTOR: Leeanna Sullivan DRUG LIST: CLINICAL HISTORY: REASON FOR TEST: CHEST PAIN REASON FOR ENDING: OBSERVATION: CONCLUSION: Lexiscan stress test was performed under standard four minute protocol. Radionuclid e was injected one minute prior to ending the test. No electrocardiographic abormalities were present to suggest ischemia. Nuclear imaging and interpretation are pending. COMMENTS:
== END 2016-11-18 14:11 | disposition home or self-care (01) ==
LOC: NEPE 19:15 → NEDA 22:08 → NEPHCDU 23:37
PROVIDERS: ADMIT Internal Medicine Cardiovascular Disease; ATTEND Internal Medicine Cardiovascular Disease
DX: R07.9 Chest pain, unspecified (principal); I10 Essential (primary) hypertension; R94.31 Abnormal electrocardiogram [ECG] [EKG]; F10.239 Alcohol dependence with withdrawal, unspecified; Y90.7 Blood alcohol level of 200-239 mg/100 ml; F17.210 Nicotine dependence, cigarettes, uncomplicated; K76.0 Fatty (change of) liver, not elsewhere classified; K21.9 Gastro-esophageal reflux disease without esophagitis; J44.0 Chronic obstructive pulmonary disease with (acute) lower respiratory infection; K22.10 Ulcer of esophagus without bleeding; Z59.0 Homelessness; Z86.73 Personal history of transient ischemic attack (TIA), and cerebral infarction without residual deficits
CPT/HCPCS: 71010; 74177; 78452; 80048; 80307; 82550; 83690; 83735; 84484; 85025; 85610; 85730; 93005; 93017; 96365; 96366; 96375; 96376; 99285; A9502; G0378; J2060; J2270; J2405; J2765; J2785; J3411; J7030; Q9967